=== PATIENT | male | born 1950 | race Caucasian/White ===

== ENCOUNTER 2016-09-27 06:45 | Inpatient (IN) | payer OTHER ==
[~2016-09-27] VITALS: Ht 167.6 cm; Wt 73.3 kg
[2016-09-27] VITALS (13 sets, daily range): BP systolic 106–168; BP diastolic 71–95; PULSE 84–105; RESP 12–24; Ht 167.6 cm; Wt 73.3 kg
--- NOTE | 2016-09-27 07:24 | RADRPT ---
PROCEDURE: XR Chest. CLINICAL INDICATION: Preoperative TECHNIQUE: Single frontal view of the chest was obtained. COMPARISON: None FINDINGS: The heart is within normal limits. The thoracic aorta is calcified. The lungs are clear. There is no pleural effusion or pneumothorax. RPTAT: AA IMPRESSION: No acute disease. Calcified aorta consistent with atherosclerotic disease. .Sagar Lyons MD, MD Date Time Electronically viewed and signed by .Sagar Lyons MD, on 09/27/2016 07:23 .S/
[2016-09-27 07:50] LABS: BASOPHILS % 0.3 % (0.0-2.0); EOSINOPHILS # 0.1 10^3/ul (0.0-0.5); EOSINOPHILS % 1.2 % (0.0-7.0); HEMATOCRIT 47.5 % (42.0-52.0); HEMOGLOBIN 16.1 g/dl (14.0-18.0); LYMPHOCYTES # 2.5 10^3/ul (0.8-2.9); LYMPHOCYTES % 27.6 % (15.0-51.0); MEAN CORPUSCULAR HEMOGLOBIN 31.4 pg (29.0-33.0); MEAN CORPUSCULAR HGB CONC 33.9 g/dl (32.0-37.0); MEAN CORPUSCULAR VOLUME 92.6 fl (82.0-101.0); MEAN PLATELET VOLUME 7.9 fl (7.4-10.4); MONOCYTE # 0.8 10^3/ul (0.3-0.9); NEUTROPHIL # 5.7 10^3/ul (1.6-7.5); NEUTROPHILS % 61.9 % (39.0-77.0); PLATELET COUNT 228 10^3/UL (140-440); RED BLOOD COUNT 5.13 10^6/ul (4.70-6.10); RED CELL DISTRIBUTION WIDTH 12.9 % (11.5-14.5); UNCORRECTED WBC 9.2 10^3/ul (4.8-10.8); WHITE BLOOD COUNT 9.2 10^3/ul (4.8-10.8)
[2016-09-27 08:03] LABS: CONDITION 1
[2016-09-27 08:14] LABS: INR 0.9; PROTIME 12.1 Sec (12.2-14.2); PT RATIO 0.9
[2016-09-27 08:15] LABS: PARTIAL THROMBOPLASTIN TIME 26.3 Sec (25.0-35.0)
[2016-09-27 08:16] LABS: CHOL/HDL RATIO 4.7 RATIO
[2016-09-27] MEDS ORDERED: ENAL20TA PO (08:19)
[2016-09-27] MEDS ORDERED: ASPI-664 PO (08:19)
[2016-09-27] MEDS ORDERED: METF-382 PO (08:19)
[2016-09-27 08:25] LABS: CALCIUM 9.4 mg/dl (8.4-10.2); CREATININE 0.89 mg/dl (0.61-1.24); POTASSIUM 4.7 mmol/L (3.5-5.1)
[2016-09-27] MEDS ORDERED: HEPARIN 1000 UNITS/ML 10 ML INJ ONE (08:31)
[2016-09-27] MEDS ORDERED: LIDOCAINE 1% (MDV) 20 ML INJ ONE (08:31)
[2016-09-27] MEDS ORDERED: IODIXANOL LOCM 100 ML BTL ONE (08:31)
[2016-09-27] MEDS ORDERED: VERAPAMIL 5 MG INJ ONE (08:32)
[2016-09-27] MEDS ORDERED: NITROGLYCERIN (IC) 100 MCG/ML INJ ONE (08:32)
[2016-09-27] MEDS ORDERED: MIDAZOLAM 1 MG/ML 2 ML INJ ONE (08:32)
[2016-09-27] MEDS ORDERED: FENTAnyl 50 MCG/ML VIAL ONE (08:32)
[2016-09-27] MEDS ORDERED: SOD CHLORIDE 0.9% 1,000 ML IV SCH (10:24)
[2016-09-27] MEDS ORDERED: ACETAMINOPHEN 325 MG TAB PO PRN ×2 (10:30→18:30)
[2016-09-27] MEDS ORDERED: AL HYDROX/MG HYDROX/SIMETH 30 ML CUP PO PRN (10:30)
[2016-09-27] MEDS ORDERED: ONDANSETRON 4 MG INJ IV PRN ×2 (10:30→18:30)
--- NOTE | 2016-09-27 14:59 | CARRPT ---
DATE OF PROCEDURE: 09/27/2016 TYPE OF PROCEDURE: 1. Left heart catheterization. 2. Coronary angiography. 3. Left ventriculogram. ATTENDING PHYSICIAN: Lori Nelson MD REFERRING PHYSICIAN: Dr. Sukumar Ness, Dr. Nilton Nina. INDICATION: Preoperative evaluation, abnormal cardiac stress test. TYPE OF ANESTHESIA: Conscious and local. BRIEF HISTORY: Mr. Conte is a 66-year-old male with history of hypertension, diabetes mellitus who initially presented with nonhealing toe wound. The patient was found to have significant periphera l arterial disease and underwent preoperative evaluation with cardiac stress test revealing positive ischemia. The patient therefore referred for left heart catheterization to assess for the possibil ity of significant obstructive coronary artery disease lending to positive stress test findings and decreased left ventricular ejection fraction in this preoperative patient. PROCEDURE: After informed consent was obtained, the patient was brought to the [facility] cardiac catheterization lab where his right radial area was prepped and draped in the usual sterile fashion. Lidocaine 2% was infiltrated into the right radial area in order to achieve adequ ate local anesthesia. Using modified Seldinger technique, the radial artery was cannulated and a 6- Singaporean arterial sheath was placed. A 6-Singaporean JL3.5 catheter was used to cannulate the left main co ronary ostium. With contrast injection, multiple views of the left coronary arterial system were ob tained. The JL3.5 was removed over a guidewire and a JR4 was used to cannulate the right coronary a rterial ostium. With contrast injection, multiple views of the right coronary arterial system obtai jude. JR4 was removed over a guidewire and a 6-Singaporean pigtail catheter was then passed down the asce nding aorta into the left ventricle. Left ventricular end-diastolic pressure was measured. The NoDaysOff er injector was used to inject the left ventricle, performing a left ventriculogram. The pigtail ca theter was then pulled back across the aortic valve to assess for significant gradient, which there was not, and removed. Subsequently, at this time, this completed the procedure. The patient's cath eters were removed. The patient's sheath was removed. TR band was applied. There were no noted co mplications. Additionally noted at the onset of procedure, the patient did receive radial cocktail that included 200 mcg of IC nitroglycerin, 2.5 mg of verapamil and 5000 units of heparin. FINDINGS: 1. Coronary angiography: Left main 4 mm, distal 20% stenosis. Circumflex proximally is a 3 mm ves connor. ____ the AV groove is free of significant focal stenoses, ____ all the way down to the termina l end of it where it looks to be subtotally occluded. There is a mid-branching obtuse marginal with a mid 80 to 90% stenosis and a very high branching obtuse marginal ramus branch which has diffuse d isease up to approximately 80%. The LAD proximally is a 3.5 mm vessel and in its proximal mid porti on just after takeoff of the first diagonal and first septal branch has a very focal 80% to 90% sten osis. There is a second branching diagonal 2 mm vessel with a 70% ostial stenosis. The right coron neil artery proximally is a 3.5 mm vessel and is very aneurysmal throughout with very sluggish flow a nd multiple areas of occlusion with the highest area of occlusion just before the PDA bifurcation up to approximately 95%. The right coronary artery can be seen also via collateral flow from the dist al circumflex and septal branch of the LAD, grade I-II. 2. Left ventriculogram revealed a depressed left ventricular ejection fraction approximately 30 to 35% inferior severe hypokinesis and anterolateral moderate hypokinesis. Left ventricular end diast olic pressure of 14 pre-LV gram, 19 post-LV gram, 1+ mitral regurgitation, no significant aortic suzan nosis by gradient. TOTAL FLUOROSCOPY TIME: 3.7 minutes. TOTAL CONTRAST: 75 mL. IMPRESSION: 1. Multivessel obstructive coronary artery disease involving high grade lesions within the LAD, obt use marginal branch of circumflex and diffuse right coronary artery disease. 2. Moderate to severely depressed left ventricular systolic function. 3. Normal left heart filling pressures. 4. There is 1+ mitral regurgitation. 5. No significant aortic stenosis by gradient. RECOMMENDATIONS: In light of procedure findings this time would: 1. Maximize medical management. 2. Aggressive risk factor reduction. 3. At this time, will consider patient for possible coronary artery bypass graft surgery versus mul tivessel PCI. 4. Patient is to be admitted to the hospital for further evaluation of peripheral arterial disease and toe wound and will discuss with the treating surgeon the best plans for revascularization if thi s patient was also in need of possible peripheral bypass surgery and amputation. Dictated By: LORI CONNELLY/NTS Conf#: [id number] DID#: [id number] CC: SUKUMAR NESS MD; NILTON NINA MD;*EndCC*
--- NOTE | 2016-09-27 17:32 | QN ---
Documentation Comment [id number] JERICHO NINA MD Sep 27, 2016 17:32
--- NOTE | 2016-09-27 17:32 | QN ---
JERICHO NINA MD Sep 27, 2016 17:32
[2016-09-27] MEDS ORDERED: ACETAMINOPHEN 650 MG SUPP PR PRN (18:30)
[2016-09-27] MEDS ORDERED: NACL 0.9% 3 ML SYG IV SCH (18:30)
[2016-09-27] MEDS ORDERED: DOCUSATE SODIUM 100 MG CAP PO PRN (18:30)
[2016-09-27] MEDS ORDERED: MAGNESIUM HYDROXIDE 30ML CUP PO PRN (18:30)
[2016-09-27] MEDS ORDERED: BISACODYL (EC) 5 MG TAB PO PRN (18:30)
[2016-09-27] MEDS ORDERED: GLUCAGON 1 MG INJ IM PRN (19:00)
[2016-09-27] MEDS ORDERED: DEXTROSE 50% 50 ML SYRINGE IV PRN ×2 (19:00)
[2016-09-27] MEDS ORDERED: GLUCOSE GEL 15 GRAM TUBE BUCCAL PRN (19:00)
[2016-09-27] MEDS ORDERED: GLUCOSE GEL 15 GRAM TUBE PO PRN ×2 (19:00)
--- NOTE | 2016-09-27 19:19 | RADRPT ---
Vent Rate: 95 bpm RR Interval: 0 msec WV Interval: 138 msec QRS Duration: 106 msec QT Interval: 372 msec QTC Interval: 467 msec P-R-T [place]: 61 - -74 - -58 degrees Normal sinus rhythm Possible Left atrial enlargement Left axis deviation Nonspecific ST and T wave abnormality Prolonged QT Abnormal ECG Electronically Signed By: Andrzej Paulino [id number]
[2016-09-27] MEDS: SOD CHLORIDE 0.45% 1,000 ML IV SCH (19:43)
--- NOTE | 2016-09-27 20:09 | HP ---
DATE OF ADMISSION: 09/27/2016 HISTORY OF PRESENT ILLNESS: A 66-year-old male who has a history of toe gangrene presented to this hospital for questionable anginal symptoms, underwent coronary angiogram and the patient will be und ergoing evaluation for lower extremity gangrene, PVD. PAST MEDICAL HISTORY: Positive for hypertension, diabetes mellitus and PVD. ALLERGIES: SULFA. SOCIAL HISTORY: Negative. FAMILY HISTORY: Negative. MEDICATION HISTORY: 1. Aspirin. 2. Enalapril. 3. Metformin. REVIEW OF SYSTEMS HEENT: Unremarkable. RESPIRATORY: No shortness of breath. CARDIOVASCULAR: No chest pain. ABDOMEN: Unremarkable. EXTREMITIES: As mentioned above, lower extremity pain and dry gangrene of the toe. CENTRAL NERVOUS SYSTEM: Unremarkable. PHYSICAL EXAMINATION GENERAL: The patient is awake, alert. VITAL SIGNS: Stable. HEAD: Atraumatic, normocephalic. Pupils are equal, reactive to light. NECK: Supple. No JVD. LUNGS: Clear. CARDIOVASCULAR: S1, S2 are normal. ABDOMEN: Soft, nontender. Bowel sounds present. No palpable mass or hepatosplenomegaly. No guard ing, rebound tenderness. EXTREMITIES. Dry gangrene of the right foot. Pulses are decreased on both lower extremities and do rsalis pedis. CENTRAL NERVOUS SYSTEM: The patient is awake, alert; no focal deficit. PLAN 1. To follow recommendation from cardiology. 2. Check lower extremity aortogram, IV fluid, pain medication, sliding scale orders will be done. Dictated By: JERICHO NINA MD BS/NTS Conf#: [id number] DID#: [id number]
[2016-09-27] MEDS ORDERED: INSULIN ASPART [NOVOLOG] 3 ML PEN SC SCH (21:00)
--- NOTE | 2016-09-27 21:15 | CONS ---
DATE OF ADMISSION: 09/27/2016 DATE OF CONSULTATION: REASON FOR CONSULTATION: Evaluation for coronary artery bypass grafting. Thank you, Dr. Nelson, for asking me to see this patient. HISTORY OF PRESENT ILLNESS: This is a 66-year-old male with a history of hypertension, diabetes, no nhealing toe wound. The patient was admitted to undergo cardiac catheterization, was found to have 3-vessel coronary artery disease. Specifically, the patient had LAD which was 80% to 90% stenosis a nd a diagonal branch of the LAD which had a 70% stenosis. The patient also had an obtuse marginal b ranch of the circumflex which had 80% to 90% stenosis, ramus branch which had 80% stenosis. Right c oronary artery was 100% occluded and filled from left to right. Ejection fraction 30% to 35%. PAST MEDICAL HISTORY: Hypertension, diabetes, hyperlipidemia, coronary artery disease, peripheral v ascular disease. PAST SURGICAL HISTORY: Lower extremity angiograms. ALLERGIES: NONE. SOCIAL HISTORY: No smoking, drinking or drug use. FAMILY HISTORY: Noncontributory. PHYSICAL EXAMINATION: VITAL SIGNS: Blood pressure is 157/89, pulse is 89, respirations 19, saturation 99% on room air. HEENT: Normocephalic, atraumatic. PERRLA. NECK: Supple. No JVD, no carotid bruits. CARDIOVASCULAR: Normal S1, S2. LUNGS: Clear. ABDOMEN: Soft. EXTREMITIES: Warm. The patient has strong pedal pulses on the right side. On the left side, he mercer s a 1st toe ulcer. There are femoral and popliteal but no pedal pulse. LABORATORY VALUES: Significant for a white count of 9.2, hemoglobin 16.1, platelet count 228, blaze l coagulation factors and a creatinine of 0.89. IMPRESSION: 1. Coronary artery disease. 2. Peripheral vascular disease. 3. Left toe ulcer. RECOMMENDATIONS: The patient will need to undergo coronary artery bypass grafting. This was discus sed with the patient. He wants me to discuss this again with his daughter tomorrow. Will discuss c are of the patient with the daughter tomorrow. Dictated By: CONSTANZA HOWELL/RAJANI Conf#: [id number] DID#: [id number]
[2016-09-27] MEDS: INSULIN ASPART [NOVOLOG] 3 ML PEN SC SCH (22:23)
[2016-09-28] VITALS (12 sets, daily range): BP systolic 147–174; BP diastolic 82–96; PULSE 86–100; RESP 18–20
[2016-09-28] MEDS: ACCUCHECK XX SCH (02:00)
[2016-09-28] MEDS ORDERED: ACCUCHECK XX SCH (02:00)
[2016-09-28 06:21] LABS: BASOPHILS % 0.5 % (0.0-2.0); EOSINOPHILS # 0.1 10^3/ul (0.0-0.5); EOSINOPHILS % 1.2 % (0.0-7.0); HEMATOCRIT 42.2 % (42.0-52.0); HEMOGLOBIN 14.4 g/dl (14.0-18.0); LYMPHOCYTES # 2.7 10^3/ul (0.8-2.9); LYMPHOCYTES % 36.1 % (15.0-51.0); MEAN CORPUSCULAR HEMOGLOBIN 31.7 pg (29.0-33.0); MEAN CORPUSCULAR HGB CONC 34.2 g/dl (32.0-37.0); MEAN CORPUSCULAR VOLUME 92.5 fl (82.0-101.0); MEAN PLATELET VOLUME 7.8 fl (7.4-10.4); MONOCYTE # 0.9 10^3/ul (0.3-0.9); MONOCYTES % 12.1 % (0.0-11.0); NEUTROPHIL # 3.8 10^3/ul (1.6-7.5); NEUTROPHILS % 50.1 % (39.0-77.0); PLATELET COUNT 222 10^3/UL (140-440); RED BLOOD COUNT 4.57 10^6/ul (4.70-6.10); RED CELL DISTRIBUTION WIDTH 12.7 % (11.5-14.5); UNCORRECTED WBC 7.5 10^3/ul (4.8-10.8); WHITE BLOOD COUNT 7.5 10^3/ul (4.8-10.8)
[2016-09-28 06:37] LABS: ALBUMIN 3.7 g/dl (3.3-4.9)
[2016-09-28 06:38] LABS: POTASSIUM 4.4 mmol/L (3.5-5.1)
[2016-09-28 06:40] LABS: ALBUMIN/GLOBULIN RATIO 1.27; BILIRUBIN,INDIRECT 0.3 mg/dl (0-1.1); BILIRUBIN,TOTAL 0.3 mg/dl (0.2-1.3); CREATININE 0.95 mg/dl (0.61-1.24); TOTAL PROTEIN 6.6 g/dl (6.1-8.1)
[2016-09-28 06:41] LABS: CALCIUM 8.6 mg/dl (8.4-10.2)
[2016-09-28 06:50] LABS: CONDITION 1
[2016-09-28] MEDS: SOD CHLORIDE 0.45% 1,000 ML IV SCH (09:06)
[2016-09-28] MEDS: ENALAPRIL 20 MG TAB PO SCH (09:06)
[2016-09-28] MEDS: INSULIN ASPART [NOVOLOG] 3 ML PEN SC SCH ×4 (09:08→21:10)
[2016-09-28] MEDS ORDERED: SOD CHLORIDE 0.9% 100 ML ONE (11:36)
[2016-09-28] MEDS ORDERED: IODIXANOL LOCM 50 ML BTL ONE (11:36)
[2016-09-28] MEDS ORDERED: IODIXANOL LOCM 100 ML BTL ONE (11:36)
[2016-09-28] MEDS: ASPIRIN (EC) 81 MG TAB PO SCH (12:28)
[2016-09-28] MEDS: ENOXAPARIN 40 MG/0.4 ML SYG SC SCH (12:30)
--- NOTE | 2016-09-28 16:11 | CONS ---
Date/Time of Note Date/Time of Note DATE: 09/28/16 TIME: 16:01 Assessment/Plan Assessment/Plan Chief Complaint/Hosp Course Imp: 1.Cad s/p cath with multivessel obstructive cad b y cath since 2.PAD with nonhealing toe ulcer 3.HTN 4.DM 5. Dyslipidemia Recc: -Tele -continue asa -Continue enalapril -Start statin and BB -Pnding cabg early next week -Local wound care Problems: Consultation Date/Type/Reason Admit Date/Time Sep 27, 2016 at 10:27 Initial Consult Date 09/27/2016 Type of Consultation: Cardiology Reason for Consultation CAD/pre-op Referring Provider: JERICHO NINA MD Exam/Review of Systems Vital Signs Vitals Vital Signs Date Time Temp Pulse Resp B/P Pulse Ox O2 Delivery O2 Flow Rate FiO2 09/28/16 12:43 95 09/28/16 07:00 98.0 18 156/82 96 09/27/16 17:35 Room Air Intake and Output 09/27/16 09/27/16 09/28/16 15:00 23:00 07:00 Intake Total 350 ml 150 ml 1000 ml Balance 350 ml 150 ml 1000 ml Exam Review of Systems: CONSTITUTIONAL: No fevers, chills. PULMONARY: No sob CARDIOVASCULAR: No chest pain/palpitations GASTROINTESTINAL: No nausea/vomiting. GENITOURINARY: No hematuria/dysuria. MUSCULOSKELETAL: No myagias/arthalgias. PSYCHIATRIC: The patient denies depression. NEUROLOGIC: No weakness Constitutional: alert, oriented Psych: no complaints Head: normocephalic ENMT: mucosa pink and moist Neck: jvd (9 cm water), supple Respiratory: diminished breath sounds (at bases/B) Cardiovascular: regular rate and rhythm Gastrointestinal: non-tender, soft Musculoskeletal: muscle tone (normal) Extremities: edema (none), other (Toe ulceration) Neurological: other (No focal deficits) Results Result Diagram: 09/28/16 0540 09/28/16 0540 Results 24 hrs Laboratory Tests Test 09/27/16 17:47 09/27/16 21:33 09/28/16 02:10 09/28/16 05:40 Bedside Glucose 246 H 326 H 243 H Alanine Aminotransferase (ALT/SGPT) 24 Albumin 3.7 Albumin/Globulin Ratio 1.27 Alkaline Phosphatase 84 Anion Gap 15 Aspartate Amino Transf (AST/SGOT) 18 Basophils # 0.0 Basophils % 0.5 Blood Urea Nitrogen 20 Calcium Level 8.6 Carbon Dioxide Level 25 Chloride Level 102 Creatinine 0.95 Direct Bilirubin 0.00 Eosinophils # 0.1 Eosinophils % 1.2 Globulin 2.90 Glucose Level 223 H Hematocrit 42.2 Hemoglobin 14.4 Indirect Bilirubin 0.3 Lymphocytes # 2.7 Lymphocytes % 36.1 Mean Corpuscular Hemoglobin 31.7 Mean Corpuscular Hemoglobin Concent 34.2 Mean Corpuscular Volume 92.5 Mean Platelet Volume 7.8 Monocytes # 0.9 Monocytes % 12.1 H Neutrophils # 3.8 Neutrophils % 50.1 Nucleated Red Blood Cells # 0.0 Nucleated Red Blood Cells % 0.0 Platelet Count 222 Potassium Level 4.4 Red Blood Count 4.57 L Red Cell Distribution Width 12.7 Sodium Level 138 Total Bilirubin 0.3 Total Protein 6.6 White Blood Count 7.5 Test 09/28/16 08:10 09/28/16 12:05 Bedside Glucose 248 H 155 Medications Medications Current Medications Miscellaneous Information (* Miscellaneous Pharmacy Order) HOLD all METFORMIN ... ONCE XX ; Start 09/27/16 at 10:30; Stop 09/29/16 at 10:29 Morphine Sulfate (morphine) 2 mg Q2H PRN IV FOR NON CARDIAC PAIN (4-10); Start 09/27/16 at 10:30 Al Hydrox/Mg Hydrox/Simethicone (Mag-Al Plus) 30 ml Q4H PRN PO GASTROINTESTINAL UPSET; Start 09/27/16 at 10:30 Aspirin (Halfprin) 81 mg DAILY PO Last administered on 09/28/16 12:28; Admin Dose 81 MG; Start 09/28/16 at 09:00 Enalapril Maleate 20 mg 20 mg DAILY PO Last administered on 09/28/16 09:06; Admin Dose 20 MG; Start 09/28/16 at 09:00 Sodium Chloride (1/2 NS) 1,000 ml @ 50 mls/hr Q20H IV Last administered on 09/28 09:06; Admin Dose 50 MLS/HR; Start 09/27/16 at 18:05 Ondansetron HCl (Zofran Inj) 4 mg Q6H PRN IV NAUSEA AND/OR VOMITING; Start 09/27 at 18:30 Acetaminophen (Tylenol Tab) 650 mg Q6H PRN PO PAIN LEVEL 1-3 OR FEVER; Start at 18:30 Acetaminophen (Tylenol Supp) 650 mg Q6H PRN SC PAIN LEVEL 1-3 OR FEVER; Start 09/27/16 at 18:30 Acetaminophen/ Hydrocodone Bitart ([place] (5/325)) 1 tab Q6H PRN PO MODERATE PAIN LEVEL 4-6; Start 09/27/16 at 18:30 Hydromorphone HCl (Dilaudid) 0.5 mg Q4H PRN IV SEVERE PAIN LEVEL 7-10; Start at 18:30 Docusate Sodium (Colace) 100 mg Q12H PRN PO CONSTIPATION; Start 09/27/16 at 18: 30 Magnesium Hydroxide (Milk Of Mag) 30 ml DAILY PRN PO CONSTIPATION; Start at 18:30 Bisacodyl (Dulcolax) 5 mg DAILY PRN PO CONSTIPATION; Start 09/27/16 at 18:30 Enoxaparin Sodium (Lovenox) 40 mg DAILY SC Last administered on 09/28/16t 12:30 ; Admin Dose 40 MG; Start 09/28/16 at 09:00 Miscellaneous Information 1 ea NOTE XX ; Start 09/27/16 at 19:00 Glucose (Glutose) 15 gm Q15M PRN PO DECREASED GLUCOSE; Start 09/27/16 at 19:00 Glucose (Glutose) 22.5 gm Q15M PRN PO DECREASED GLUCOSE; Start 09/27/16 at 19:00 Dextrose (D50w Syringe) 25 ml Q15M PRN IV DECREASED GLUCOSE; Start 09/27/16 at 19:00 Dextrose (D50w Syringe) 50 ml Q15M PRN IV DECREASED GLUCOSE; Start 09/27/16 at 19:00 Glucagon (Glucagen) 1 mg Q15M PRN IM DECREASED GLUCOSE; Start 09/27/16 at 19:00 Glucose (Glutose) 15 gm Q15M PRN BUCCAL DECREASED GLUCOSE; Start 09/27/16 at 19: 00 Diagnostic Test (Pha) (Accucheck) 1 ea 02 XX ; Start 09/28/16 at 02:00 LORI CASTREJON Sep 28, 2016 16:11
--- NOTE | 2016-09-28 17:20 | PN ---
Date/Time of Note Date/Time of Note DATE: 09/28/16 TIME: 17:16 Assessment/Plan VTE Prophylaxis VTE Prophylaxis Intervention: other Lines/Catheters IV Catheter Type (from Nrs): Saline Lock Assessment/Plan Chief Complaint/Hosp Course A/P DM HTN S/P CATH POSITIVE FOR CAD PVD PLAN WILL NEED CABG Problems: Subjective 24 Hr Interval Summary Respiratory: no complaints Cardiovascular: no complaints Gastrointestinal: no complaints Musculoskeletal: no complaints Exam/Review of Systems Vital Signs Vitals Vital Signs Date Time Temp Pulse Resp B/P Pulse Ox O2 Delivery O2 Flow Rate FiO2 09/28/16 16:12 91 09/28/16 16:00 98.2 20 167/96 98 Room Air Intake and Output 09/27/16 09/27/16 09/28/16 15:00 23:00 07:00 Intake Total 350 ml 150 ml 1000 ml Balance 350 ml 150 ml 1000 ml Exam Neck: supple Respiratory: clear to auscultation Cardiovascular: regular rate and rhythm Gastrointestinal: soft Musculoskeletal: nl extremities to inspection Results Result Diagram: 09/28/16 0540 09/28/16 0540 Results 24 hrs Laboratory Tests Test 09/27/16 17:47 09/27/16 21:33 09/28/16 02:10 09/28/16 05:40 Bedside Glucose 246 H 326 H 243 H Alanine Aminotransferase (ALT/SGPT) 24 Albumin 3.7 Albumin/Globulin Ratio 1.27 Alkaline Phosphatase 84 Anion Gap 15 Aspartate Amino Transf (AST/SGOT) 18 Basophils # 0.0 Basophils % 0.5 Blood Urea Nitrogen 20 Calcium Level 8.6 Carbon Dioxide Level 25 Chloride Level 102 Creatinine 0.95 Direct Bilirubin 0.00 Eosinophils # 0.1 Eosinophils % 1.2 Globulin 2.90 Glucose Level 223 H Hematocrit 42.2 Hemoglobin 14.4 Indirect Bilirubin 0.3 Lymphocytes # 2.7 Lymphocytes % 36.1 Mean Corpuscular Hemoglobin 31.7 Mean Corpuscular Hemoglobin Concent 34.2 Mean Corpuscular Volume 92.5 Mean Platelet Volume 7.8 Monocytes # 0.9 Monocytes % 12.1 H Neutrophils # 3.8 Neutrophils % 50.1 Nucleated Red Blood Cells # 0.0 Nucleated Red Blood Cells % 0.0 Platelet Count 222 Potassium Level 4.4 Red Blood Count 4.57 L Red Cell Distribution Width 12.7 Sodium Level 138 Total Bilirubin 0.3 Total Protein 6.6 White Blood Count 7.5 Test 2/3/17 08:10 09/28/16 12:05 09/28/16 16:35 Bedside Glucose 248 H 155 183 Medications Medications Current Medications Miscellaneous Information (* Miscellaneous Pharmacy Order) HOLD all METFORMIN ... ONCE XX ; Start 09/27/16 at 10:30; Stop 09/29/16 at 10:29 Morphine Sulfate (morphine) 2 mg Q2H PRN IV FOR NON CARDIAC PAIN (4-10); Start 09/27/16 at 10:30 Al Hydrox/Mg Hydrox/Simethicone (Mag-Al Plus) 30 ml Q4H PRN PO GASTROINTESTINAL UPSET; Start 09/27/16 at 10:30 Aspirin (Halfprin) 81 mg DAILY PO Last administered on 09/28/16 12:28; Admin Dose 81 MG; Start 09/28/16 at 09:00 Enalapril Maleate 20 mg 20 mg DAILY PO Last administered on 09/28/16 09:06; Admin Dose 20 MG; Start 09/28/16 at 09:00 Sodium Chloride (1/2 NS) 1,000 ml @ 50 mls/hr Q20H IV Last administered on 09/28 09:06; Admin Dose 50 MLS/HR; Start 09/27/16 at 18:05 Ondansetron HCl (Zofran Inj) 4 mg Q6H PRN IV NAUSEA AND/OR VOMITING; Start 09/27 at 18:30 Acetaminophen (Tylenol Tab) 650 mg Q6H PRN PO PAIN LEVEL 1-3 OR FEVER; Start at 18:30 Acetaminophen (Tylenol Supp) 650 mg Q6H PRN [place] PAIN LEVEL 1-3 OR FEVER; Start 09/27/16 at 18:30 Acetaminophen/ Hydrocodone Bitart ([place] (5/325)) 1 tab Q6H PRN PO MODERATE PAIN LEVEL 4-6; Start 09/27/16 at 18:30 Hydromorphone HCl (Dilaudid) 0.5 mg Q4H PRN IV SEVERE PAIN LEVEL 7-10; Start at 18:30 Docusate Sodium (Colace) 100 mg Q12H PRN PO CONSTIPATION; Start 09/27/16 at 18: 30 Magnesium Hydroxide (Milk Of Mag) 30 ml DAILY PRN PO CONSTIPATION; Start at 18:30 Bisacodyl (Dulcolax) 5 mg DAILY PRN PO CONSTIPATION; Start 09/27/16 at 18:30 Enoxaparin Sodium (Lovenox) 40 mg DAILY SC Last administered on 09/28/16t 12:30 ; Admin Dose 40 MG; Start 09/28/16 at 09:00 Miscellaneous Information 1 ea NOTE XX ; Start 09/27/16 at 19:00 Glucose (Glutose) 15 gm Q15M PRN PO DECREASED GLUCOSE; Start 09/27/16 at 19:00 Glucose (Glutose) 22.5 gm Q15M PRN PO DECREASED GLUCOSE; Start 09/27/16 at 19:00 Dextrose (D50w Syringe) 25 ml Q15M PRN IV DECREASED GLUCOSE; Start 09/27/16 at 19:00 Dextrose (D50w Syringe) 50 ml Q15M PRN IV DECREASED GLUCOSE; Start 09/27/16 at 19:00 Glucagon (Glucagen) 1 mg Q15M PRN IM DECREASED GLUCOSE; Start 09/27/16 at 19:00 Glucose (Glutose) 15 gm Q15M PRN BUCCAL DECREASED GLUCOSE; Start 09/27/16 at 19: 00 Diagnostic Test (Pha) (Accucheck) 1 ea 02 XX ; Start 09/28/16 at 02:00 Hydralazine HCl (Apresoline) 25 mg TID PO ; Start 09/28/16 at 21:00 JERICHO NINA MD Sep 28, 2016 17:19
--- NOTE | 2016-09-28 19:21 | PN ---
Date/Time of Note Date/Time of Note DATE: 09/28/16 TIME: 19:19 Assessment/Plan Lines/Catheters IV [facility]ter [facility] (from [facility]): Saline Lock Assessment/Plan Chief Complaint/Hosp Course IMPRESSION: 1. Coronary artery disease. 2. Peripheral vascular disease. 3. Left toe ulcer. RECOMMENDATIONS: The patient will need to undergo coronary artery bypass grafting. This was discussed with the patient. He wants me to discuss this again with his daughter tomorrow. Will discuss care of the patient with the daughter Plan for CABG on Saturday Problems: Subjective 24 Hr Interval Summary Constitutional: improved Pain Control: mild Exam/Review of Systems Vital Signs Vitals Vital Signs Date Time Temp Pulse Resp B/P Pulse Ox O2 Delivery O2 Flow Rate FiO2 09/28/16 16:12 91 09/28/16 16:00 98.2 20 167/96 98 Room Air Intake and Output 09/27/16 09/27/16 09/28/16 15:00 23:00 07:00 Intake Total 350 ml 150 ml 1000 ml Balance 350 ml 150 ml 1000 ml Exam Neck: non-tender, supple Respiratory: clear to auscultation, normal air movement Cardiovascular: nl pulses, regular rate and rhythm Gastrointestinal: nl liver, spleen, non-tender, soft Results Result Diagram: 09/28/16 0540 09/28/16 0540 CONSTANZA AWAD MD Sep 28, 2016 19:21
--- NOTE | 2016-09-28 20:41 | RADRPT ---
PROCEDURE: Carotid ultrasound CLINICAL INDICATION: Carotid stenosis, coronary artery disease, carotid bruits TECHNIQUE: Gentile scale, color doppler, spectral doppler ultrasound of the bilateral carotid and ivette tebral arteries. This study indirectly references the measurement of the distal ICA diameter as the denominator for s tenosis measurement. Validated velocity measurements with angiographic measurements, velocity criter ia are extrapolated from diameter data as defined by: *Cartoid artery stenosis: gentile-scale and Doppl er US diagnosis. Society of Radiologists in Ultrasound Consensus Conference. Radiology 2003; 229: 34 0-346. U Consensus Conference Criteria for the Diagnosis of Carotid Artery Stenosis* Degree of Stenosis, % ICA PSV, cm/sec Plaque Estimate, % ICA/CCA PSV Ratio Normal <125 None <2.0 <50 <125 <50 <2.0 50 69 125-230 >50 2.0-4.0 >70 but less than near occlusion >230 >50 <4.0 Near occlusion High, low, or undetectable Visible Variable Total occlusion Undetectable Visible, no detectable lumen Not applicable COMPARISON: No prior studies are available for comparison. FINDINGS: Location Right CCA62 cm/sec Prox ICA 31 cm/sec Mid ICA38 cm/sec Dist ICA45 cm/sec ECA79 cm/sec ICA/CCA0.7 Left CCA69 cm/sec Prox ICA 35 cm/sec Mid ICA48 cm/sec Dist ICA55 cm/sec ECA95 cm/sec ICA/CCA0.7 Plaque burden: A small amount of plaque is present within the visualized portions of both internal c arotid arteries however there is no evidence of flow acceleration to suggest a hemodynamically signi ficant stenosis. Antegrade flow is seen within the vertebral arteries bilaterally. IMPRESSION: A small amount of plaque is present within the visualized portions of both internal carotid arteries however there is no evidence of flow acceleration to suggest a hemodynamically significant stenosis . RPTAT: AADD .Adi Monson MD, MD Date Time Electronically viewed and signed by .Adi Monson MD, on 09/28/2016 20:40 .B/
[2016-09-29] VITALS (12 sets, daily range): BP systolic 124–159; BP diastolic 72–93; PULSE 72–99; RESP 19–20
[2016-09-29] MEDS: ACCUCHECK XX SCH (02:24)
[2016-09-29] MEDS: SOD CHLORIDE 0.45% 1,000 ML IV SCH (06:47)
--- NOTE | 2016-09-29 06:50 | RADRPT ---
PROCEDURE: CT angiogram of the abdomen and pelvis with bilateral lower extremity runoff and with 3 -D reconstructions CLINICAL INDICATION: Peripheral vascular disease TECHNIQUE: CT angiogram of the abdomen and pelvis was performed on a multislice CT scanner . The patient was scanned after administration of intravenous contrast. Sagittal and coronal reformatted images were obtained from the axial source images. 3D MIP reformatted images were also created from the axial source images. DLP 1088.53 mGycm CTDI vol 147.88, 7.72 mGy COMPARISON: None FINDINGS: ANGIOGRAM FINDINGS: There is no acute dissection or aneurysm of the abdominal aorta. The celiac, SMA, and HIEN are widely patent. There are mural thrombi in the abdominal aorta which begin at the level of the SMA posteriorly and p roduce mild circumferential narrowing of the primarily infrarenal aorta. There is a penetrating athe rosclerotic ulcer of the infrarenal aorta measuring approximately 2.2 x 0.9 cm in axial dimensions a nd 2.8 cm in height on series 3, image 63 and coronal image 59. There are single renal arteries bilaterally. The left renal artery is widely patent. There is mild atherosclerotic narrowing of the right renal artery origin due to mural thrombi which extend into t he proximal right renal artery. Mural thrombi are noted to extend into the right greater than left common iliac arteries producing m ild intraluminal narrowing. There is a focus of penetrating atherosclerotic ulcer in the proximal r ight common iliac artery measuring approximately 7 x 3 mm in axial dimensions and 6 mm in height wit h medially displaced intimal calcifications noted on series 3, image 105 and coronal image 54. Somew hat more inferiorly in the proximal right common iliac artery, there is a second penetrating atheros clerotic ulcer measuring approximately 1.0 x 0 is 0.6 cm in axial dimensions and 1.1 cm in length on series 3, image 116 and coronal image 58. There is mild focal ectasia of the proximal right internal iliac artery measuring approximately 1 cm , compared with a diameter of 6 mm more inferiorly. The right external iliac artery is widely patent. There is short segment proximal occlusion of the left internal iliac artery with reconstitution from collaterals. The left external iliac artery is widely patent. RIGHT LOWER EXTREMITY: The SURGICAL TRAINING SPECIALIST, SFA, and profunda arteries are widely patent. The popliteal artery is widely patent. Infrapopliteal vessels are widely patent and there appears to be good three-vessel runoff to the lev el of the right ankle although evaluation is somewhat limited level of the mid calf due to attenuati on of the contrast bolus. LEFT LOWER EXTREMITY: The SURGICAL TRAINING SPECIALIST, SFA, and profunda arteries are widely patent. There is a focus of severe short segment narrowing of the above-knee popliteal artery on series 3, i mage 360. There is a focus of moderate short segment atherosclerotic narrowing of the left popliteal artery at the level of the knee on series 3, image 380. There is a focus of short segment occlusion and reconstitution of the left anterior tibial artery in the proximal to mid calf on series 3, image 458. The remainder of the left anterior tibial artery is patent to the ankle. There is a focus of severe short segment narrowing of the tibioperoneal trunk distally at its bifurc ation into the peroneal and posterior tibial arteries on series 3, image 430. The peroneal and poste rior tibial arteries are otherwise patent to the level of the left ankle. ANCILLARY FINDINGS: There is a 6 mm focus of arterial enhancement in the liver adjacent to the fundus of the gallbladder on series 3, image 42 which may be a hemangioma. There is renal cortical scarring on the right. There is a sub-centimeter hypodensity in the left ki dney which is too small to characterize, likely represents a cyst. The appendix is within normal limits. The prostate is enlarged and heterogeneous, measuring up to 5.6 cm in maximum dimension. 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 Mild narrowing at the origin of the right renal artery. 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 Mild ectasia of the proximal right internal iliac artery as well as short segment occlusion and graciela nstitution of the left internal iliac artery. There is likely good three-vessel runoff to the level of the right ankle although evaluation is some what limited below the midcalf due to attenuation of the contrast bolus. There is a focus of severe short segment narrowing of the above-knee popliteal artery as well as a f ocus of moderate short segment narrowing of the popliteal artery at the level of the knee. There is a focus of short segment occlusion and reconstitution of the proximal mid left anterior tib ial artery. There is a focus of severe short segment narrowing of the tibioperoneal trunk distally at its bifurc ation, as above. 6 mm focus of arterial enhancement of the liver adjacent to the gallbladder fundus is likely a heman gioma. A non emergent ultrasound can be obtained for further evaluation. The prostate is enlarged and heterogeneous, measuring up to 5.6 cm. Correlation with PSA level and digital rectal exam is recommended. RPTAT: EE Delroy Silverio Physician Date Time Electronically viewed and signed by Delroy Silverio Physician on 09/28/2016 13:31 /
[2016-09-29] MEDS: ENOXAPARIN 40 MG/0.4 ML SYG SC SCH (08:36)
[2016-09-29] MEDS: ENALAPRIL 20 MG TAB PO SCH (08:37)
[2016-09-29] MEDS: ASPIRIN (EC) 81 MG TAB PO SCH (08:37)
[2016-09-29] MEDS: INSULIN ASPART [NOVOLOG] 3 ML PEN SC SCH ×4 (08:37→21:06)
[2016-09-29 09:14] LABS: POTASSIUM 4.1 mmol/L (3.5-5.1)
[2016-09-29 09:16] LABS: CREATININE 0.8 mg/dl (0.61-1.24)
[2016-09-29 09:17] LABS: CALCIUM 9.1 mg/dl (8.4-10.2)
[2016-09-29 10:59] LABS: HEMATOCRIT 43.7 % (42.0-52.0); HEMOGLOBIN 15.6 g/dl (14.0-18.0); MEAN CORPUSCULAR HEMOGLOBIN 31.5 pg (29.0-33.0); MEAN CORPUSCULAR HGB CONC 35.7 g/dl (32.0-37.0); MEAN CORPUSCULAR VOLUME 88.1 fl (82.0-101.0); NEUTROPHILS % 54.7 % (39.0-77.0); PLATELET COUNT 229 10^3/UL (140-440); RED BLOOD COUNT 4.96 10^6/ul (4.70-6.10); WHITE BLOOD COUNT 6.5 10^3/ul (4.8-10.8)
[2016-09-29 11:00] LABS: BASOPHIL # 0.1 10^3/ul (0.0-0.1); BASOPHILS % 0.8 % (0.0-2.0); EOSINOPHILS # 0.1 10^3/ul (0.0-0.5); EOSINOPHILS % 1.4 % (0.0-7.0); LYMPHOCYTES # 2.1 10^3/ul (0.8-2.9); LYMPHOCYTES % 32.1 % (15.0-51.0); MONOCYTE # 0.7 10^3/ul (0.3-0.9); MONOCYTES % 10.7 % (0.0-11.0); NEUTROPHIL # 3.6 10^3/ul (1.6-7.5)
--- NOTE | 2016-09-29 11:47 | PN ---
Date/Time of Note Date/Time of Note DATE: 09/29/16 TIME: 11:46 Assessment/Plan Lines/Catheters IV Catheter Type (from Nrs): Saline Lock Assessment/Plan Chief Complaint/Hosp Course IMPRESSION: 1. Coronary artery disease. 2. Peripheral vascular disease. 3. Left toe ulcer. RECOMMENDATIONS: The patient will need to undergo coronary artery bypass grafting. This was discussed with the patient. He wants me to discuss this again with his daughter tomorrow. 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 Plan for CABG on Saturday Problems: Subjective 24 Hr Interval Summary Constitutional: improved Pain Control: mild Exam/Review of Systems Vital Signs Vitals Vital Signs Date Time Temp Pulse Resp B/P Pulse Ox O2 Delivery O2 Flow Rate FiO2 09/29/16 08:08 87 09/29/16 07:45 98.0 19 154/93 95 09/29/16 05:00 Room Air Intake and Output 09/28/16 09/28/16 09/29/16 15:00 23:00 07:00 Intake Total 1250 ml 740 ml Output Total 900 ml 700 ml Balance 350 ml 40 ml Exam ENMT: mucosa pink and moist, nl external ears & nose, nl lips & teeth, nl nasal mucosa & septum Neck: non-tender, supple Respiratory: clear to auscultation, normal air movement Cardiovascular: nl pulses, regular rate and rhythm Gastrointestinal: nl liver, spleen, non-tender, soft Results Result Diagram: 09/29/16 0732 09/29/16 0732 CONSTANZA AWAD MD Sep 29, 2016 11:47
--- NOTE | 2016-09-29 12:00 | PN ---
Date/Time of Note Date/Time of Note DATE: 09/29/16 TIME: 11:59 Assessment/Plan VTE Prophylaxis VTE Prophylaxis Intervention: other Lines/Catheters IV Catheter Type (from Nrsg): Saline Lock Assessment/Plan Chief Complaint/Hosp Course A/P DM HTN S/P CATH POSITIVE FOR CAD PVD PLAN WILL NEED CABG Problems: Subjective 24 Hr Interval Summary Respiratory: no complaints Cardiovascular: no complaints Exam/Review of Systems Vital Signs Vitals Vital Signs Date Time Temp Pulse Resp B/P Pulse Ox O2 Delivery O2 Flow Rate FiO2 09/29/16 08:08 87 09/29/16 07:45 98.0 19 154/93 95 09/29/16 05:00 Room Air Intake and Output 09/28/16 09/28/16 09/29/16 15:00 23:00 07:00 Intake Total 1250 ml 740 ml Output Total 900 ml 700 ml Balance 350 ml 40 ml Exam Respiratory: clear to auscultation Cardiovascular: regular rate and rhythm Gastrointestinal: soft Musculoskeletal: nl extremities to inspection Results Result Diagram: 09/29/16 0732 09/29/16 0732 Results 24 hrs Laboratory Tests Test 09/28/16 12:05 09/28/16 16:35 09/28/16 20:37 09/29/16 02:20 Bedside Glucose 155 183 255 H 188 Test 09/29/16 07:32 09/29/16 07:44 09/29/16 11:25 Anion Gap 18 H Basophils # 0.1 Basophils % 0.8 Blood Urea Nitrogen 19 Calcium Level 9.1 Carbon Dioxide Level 24 Chloride Level 104 Creatinine 0.80 Eosinophils # 0.1 Eosinophils % 1.4 Glucose Level 209 Hematocrit 43.7 Hemoglobin 15.6 Lymphocytes # 2.1 Lymphocytes % 32.1 Mean Corpuscular Hemoglobin 31.5 Mean Corpuscular Hemoglobin Concent 35.7 Mean Corpuscular Volume 88.1 Mean Platelet Volume 10.0 # Monocytes # 0.7 Monocytes % 10.7 Neutrophils # 3.6 Neutrophils % 54.7 Nucleated Red Blood Cells # 0.0 Nucleated Red Blood Cells % 0.0 Platelet Count 229 Potassium Level 4.1 Red Blood Count 4.96 Red Cell Distribution Width 12.0 Sodium Level 142 White Blood Count 6.5 Bedside Glucose 215 261 H Medications Medications Current Medications Morphine Sulfate (morphine) 2 mg Q2H PRN IV FOR NON CARDIAC PAIN (4-10); Start 09/27/16 at 10:30 Al Hydrox/Mg Hydrox/Simethicone (Mag-Al Plus) 30 ml Q4H PRN PO GASTROINTESTINAL UPSET; Start 09/27/16 at 10:30 Aspirin (Halfprin) 81 mg DAILY PO Last administered on 09/29/16 08:37; Admin Dose 81 MG; Start 09/28/16 at 09:00 Enalapril Maleate 20 mg 20 mg DAILY PO Last administered on 09/29/16 08:37; Admin Dose 20 MG; Start 09/28/16 at 09:00 Sodium Chloride (1/2 NS) 1,000 ml @ 50 mls/hr Q20H IV Last administered on 09/29 06:47; Admin Dose 50 MLS/HR; Start 09/27/16 at 18:05 Ondansetron HCl (Zofran Inj) 4 mg Q6H PRN IV NAUSEA AND/OR VOMITING; Start 09/27 at 18:30 Acetaminophen (Tylenol Tab) 650 mg Q6H PRN PO PAIN LEVEL 1-3 OR FEVER; Start at 18:30 Acetaminophen (Tylenol Supp) 650 mg Q6H PRN [place] PAIN LEVEL 1-3 OR FEVER; Start 09/27/16 at 18:30 Acetaminophen/ Hydrocodone Bitart ([place] (5/325)) 1 tab Q6H PRN PO MODERATE PAIN LEVEL 4-6; Start 09/27/16 at 18:30 Hydromorphone HCl (Dilaudid) 0.5 mg Q4H PRN IV SEVERE PAIN LEVEL 7-10; Start at 18:30 Docusate Sodium (Colace) 100 mg Q12H PRN PO CONSTIPATION; Start 09/27/16 at 18: 30 Magnesium Hydroxide (Milk Of Mag) 30 ml DAILY PRN PO CONSTIPATION; Start at 18:30 Bisacodyl (Dulcolax) 5 mg DAILY PRN PO CONSTIPATION; Start 09/27/16 at 18:30 Enoxaparin Sodium (Lovenox) 40 mg DAILY SC Last administered on 09/29/16 08:36 ; Admin Dose 40 MG; Start 09/28/16 at 09:00 Miscellaneous Information 1 ea NOTE XX ; Start 09/27/16 at 19:00 Glucose (Glutose) 15 gm Q15M PRN PO DECREASED GLUCOSE; Start 09/27/16 at 19:00 Glucose (Glutose) 22.5 gm Q15M PRN PO DECREASED GLUCOSE; Start 09/27/16 at 19:00 Dextrose (D50w Syringe) 25 ml Q15M PRN IV DECREASED GLUCOSE; Start 09/27/16 at 19:00 Dextrose (D50w Syringe) 50 ml Q15M PRN IV DECREASED GLUCOSE; Start 09/27/16 at 19:00 Glucagon (Glucagen) 1 mg Q15M PRN IM DECREASED GLUCOSE; Start 09/27/16 at 19:00 Glucose (Glutose) 15 gm Q15M PRN BUCCAL DECREASED GLUCOSE; Start 09/27/16 at 19: 00 Diagnostic Test (Pha) (Accucheck) 1 ea 02 XX Last administered on 09/29/16 02: 24; Admin Dose 1 EA; Start 09/28/16 at 02:00 Hydralazine HCl (Apresoline) 25 mg TID PO Last administered on 09/29/16 08:37; Admin Dose 25 MG; Start 09/28/16 at 21:00 JERICHO NINA MD Sep 29, 2016 12:00
--- NOTE | 2016-09-29 13:04 | OPPN ---
Date/Time of Note Date/Time of Note DATE: 09/29/16 TIME: 13:02 Operative/Procedure Note Pre-Operative Diagnosis ESRD Post-Operative Diagnosis ESRD Procedure LUE AVF Surgeon: CONSTANZA AWAD MD Implants/Grafts: Not applicable Estimated blood loss: minimal Specimens: Not Applicable Complications: None Anesthesia type: CONSTANZA MCDONALD MD Sep 29, 2016 13:04
--- NOTE | 2016-09-29 15:54 | CONS ---
Date/Time of Note Date/Time of Note DATE: 09/29/16 TIME: 15:50 Assessment/Plan Assessment/Plan Additional Assessment/Plan 1.Cad with triple vessel disease 2.PAD with nonhealing toe ulcer 3.HTN 4.DM 5. Dyslipidemia Hemodynamically stable Awaiting Bypass surgery Continue Current Medical Regimen Consultation Date/Type/Reason Admit Date/Time Sep 27, 2016 at 10:27 Constitutional: no complaints Respiratory: no complaints Cardiovascular: no complaints Gastrointestinal: no complaints Musculoskeletal: no complaints Psychological: no complaints Social History Smoking Status: Former smoker Exam/Review of Systems Vital Signs Vitals Vital Signs Date Time Temp Pulse Resp B/P Pulse Ox O2 Delivery O2 Flow Rate FiO2 09/29/16 15:00 97.9 103 20 135/79 98 09/29/16 05:00 Room Air Intake and Output 09/28/16 09/28/16 09/29/16 15:00 23:00 07:00 Intake Total 1250 ml 740 ml Output Total 900 ml 700 ml Balance 350 ml 40 ml Exam Head: atraumatic, normocephalic Neck: non-tender, supple Respiratory: clear to auscultation Cardiovascular: regular rate and rhythm Gastrointestinal: nl liver, spleen, non-tender, soft Extremities: other (left toe ulcer) Results Result Diagram: 09/29/16 0732 09/29/16 0732 Results 24 hrs Laboratory Tests Test 09/28/16 16:35 09/28/16 20:37 09/29/16 02:20 09/29/16 07:32 Bedside Glucose 183 255 H 188 Anion Gap 18 H Basophils # 0.1 Basophils % 0.8 Blood Urea Nitrogen 19 Calcium Level 9.1 Carbon Dioxide Level 24 Chloride Level 104 Creatinine 0.80 Eosinophils # 0.1 Eosinophils % 1.4 Glucose Level 209 Hematocrit 43.7 Hemoglobin 15.6 Lymphocytes # 2.1 Lymphocytes % 32.1 Mean Corpuscular Hemoglobin 31.5 Mean Corpuscular Hemoglobin Concent 35.7 Mean Corpuscular Volume 88.1 Mean Platelet Volume 10.0 # Monocytes # 0.7 Monocytes % 10.7 Neutrophils # 3.6 Neutrophils % 54.7 Nucleated Red Blood Cells # 0.0 Nucleated Red Blood Cells % 0.0 Platelet Count 229 Potassium Level 4.1 Red Blood Count 4.96 Red Cell Distribution Width 12.0 Sodium Level 142 White Blood Count 6.5 Test 09/29/16 07:44 09/29/16 11:25 Bedside Glucose 215 261 H Medications Medications Current Medications Morphine Sulfate (morphine) 2 mg Q2H PRN IV FOR NON CARDIAC PAIN (4-10); Start 09/27/16 at 10:30 Al Hydrox/Mg Hydrox/Simethicone (Mag-Al Plus) 30 ml Q4H PRN PO GASTROINTESTINAL UPSET; Start 09/27/16 at 10:30 Aspirin (Halfprin) 81 mg DAILY PO Last administered on 09/29/16 08:37; Admin Dose 81 MG; Start 09/28/16 at 09:00 Enalapril Maleate 20 mg 20 mg DAILY PO Last administered on 09/29/16 08:37; Admin Dose 20 MG; Start 09/28/16 at 09:00 Sodium Chloride (1/2 NS) 1,000 ml @ 50 mls/hr Q20H IV Last administered on 09/29 06:47; Admin Dose 50 MLS/HR; Start 09/27/16 at 18:05 Ondansetron HCl (Zofran Inj) 4 mg Q6H PRN IV NAUSEA AND/OR VOMITING; Start 09/27 at 18:30 Acetaminophen (Tylenol Tab) 650 mg Q6H PRN PO PAIN LEVEL 1-3 OR FEVER; Start at 18:30 Acetaminophen (Tylenol Supp) 650 mg Q6H PRN [place] PAIN LEVEL 1-3 OR FEVER; Start 09/27/16 at 18:30 Acetaminophen/ Hydrocodone Bitart ([place] (5/325)) 1 tab Q6H PRN PO MODERATE PAIN LEVEL 4-6; Start 09/27/16 at 18:30 Hydromorphone HCl (Dilaudid) 0.5 mg Q4H PRN IV SEVERE PAIN LEVEL 7-10; Start at 18:30 Docusate Sodium (Colace) 100 mg Q12H PRN PO CONSTIPATION; Start 09/27/16 at 18: 30 Magnesium Hydroxide (Milk Of Mag) 30 ml DAILY PRN PO CONSTIPATION; Start at 18:30 Bisacodyl (Dulcolax) 5 mg DAILY PRN PO CONSTIPATION; Start 09/27/16 at 18:30 Enoxaparin Sodium (Lovenox) 40 mg DAILY SC Last administered on 09/29/16 08:36 ; Admin Dose 40 MG; Start 09/28/16 at 09:00 Miscellaneous Information 1 ea NOTE XX ; Start 09/27/16 at 19:00 Glucose (Glutose) 15 gm Q15M PRN PO DECREASED GLUCOSE; Start 09/27/16 at 19:00 Glucose (Glutose) 22.5 gm Q15M PRN PO DECREASED GLUCOSE; Start 09/27/16 at 19:00 Dextrose (D50w Syringe) 25 ml Q15M PRN IV DECREASED GLUCOSE; Start 09/27/16 at 19:00 Dextrose (D50w Syringe) 50 ml Q15M PRN IV DECREASED GLUCOSE; Start 09/27/16 at 19:00 Glucagon (Glucagen) 1 mg Q15M PRN IM DECREASED GLUCOSE; Start 09/27/16 at 19:00 Glucose (Glutose) 15 gm Q15M PRN BUCCAL DECREASED GLUCOSE; Start 09/27/16 at 19: 00 Diagnostic Test (Pha) (Accucheck) 1 ea 02 XX Last administered on 09/29/16 02: 24; Admin Dose 1 EA; Start 09/28/16 at 02:00 Hydralazine HCl (Apresoline) 25 mg TID PO Last administered on 09/29/16 12:52; Admin Dose 25 MG; Start 09/28/16 at 21:00 JULIANNE LOPEZ M.D. Sep 29, 2016 15:54
[2016-09-30] VITALS (9 sets, daily range): BP systolic 121–154; BP diastolic 82–85; PULSE 77–99; RESP 18–20
[2016-09-30] MEDS: ACCUCHECK XX SCH (02:00)
[2016-09-30] MEDS: SOD CHLORIDE 0.45% 1,000 ML IV SCH (05:32)
[2016-09-30] MEDS: ENALAPRIL 20 MG TAB PO SCH (08:34)
[2016-09-30] MEDS: ASPIRIN (EC) 81 MG TAB PO SCH (08:34)
[2016-09-30] MEDS: ENOXAPARIN 40 MG/0.4 ML SYG SC SCH (08:35)
[2016-09-30] MEDS: INSULIN ASPART [NOVOLOG] 3 ML PEN SC SCH ×4 (08:37→20:55)
--- NOTE | 2016-09-30 10:51 | PN ---
Date/Time of Note Date/Time of Note DATE: 09/30/16 TIME: 10:50 Assessment/Plan Lines/Catheters IV C[facility]ter Type (from [facility]): Saline Lock Assessment/Plan Chief Complaint/Hosp Course IMPRESSION: 1. Coronary artery disease. 2. Peripheral vascular disease. 3. Left toe ulcer. RECOMMENDATIONS: The patient will need to undergo coronary artery bypass grafting. This was discussed with the patient. He wants me to discuss this again with his daughter tomorrow. Will discuss care of the patient with the daughter Carotid Duplex without sig disease Plan for CABG on Tomorrow Risk and benefits explained Problems: Subjective 24 Hr Interval Summary Constitutional: improved Pain Control: mild Exam/Review of Systems Vital Signs Vitals Vital Signs Date Time Temp Pulse Resp B/P Pulse Ox O2 Delivery O2 Flow Rate FiO2 09/30/16 08:14 77 09/29/16 20:30 97.8 20 159/72 98 Room Air Intake and Output 09/29/16 09/29/16 09/30/16 15:00 23:00 07:00 Intake Total 2050 ml 675 ml Balance 2050 ml 675 ml Exam Neck: non-tender, supple Respiratory: clear to auscultation, normal air movement Cardiovascular: nl pulses, regular rate and rhythm Gastrointestinal: nl liver, spleen, non-tender, soft Results Result Diagram: 09/29/16 0732 09/29/16 0732 CONSTANZA AWAD MD Sep 30, 2016 10:51
--- NOTE | 2016-09-30 19:46 | CONS ---
Date/Time of Note Date/Time of Note DATE: 09/30/16 TIME: 19:45 Assessment/Plan Assessment/Plan Additional Assessment/Plan 1.Cad with triple vessel disease 2.PAD with nonhealing toe ulcer 3.HTN 4.DM 5. Dyslipidemia Hemodynamically stable Awaiting Bypass surgery Continue Current Medical Regimen Consultation Date/Type/Reason Admit Date/Time Sep 27, 2016 at 10:27 Initial Consult Date Type of Consultation: Cardiology Referring Provider: JERICHO NINA MD Exam/Review of Systems Vital Signs Vitals Vital Signs Date Time Temp Pulse Resp B/P Pulse Ox O2 Delivery O2 Flow Rate FiO2 09/30/16 16:07 94 09/30/16 12:00 98.1 20 144/82 98 Room Air Intake and Output 09/29/16 09/29/16 09/30/16 15:00 23:00 07:00 Intake Total 2050 ml 675 ml Balance 2050 ml 675 ml Exam Head: atraumatic, normocephalic Neck: non-tender, supple Respiratory: clear to auscultation Cardiovascular: regular rate and rhythm Gastrointestinal: nl liver, spleen, non-tender, soft Extremities: other (left toe ulcer) Results Result Diagram: 09/29/16 0732 09/29/16 0732 Results 24 hrs Laboratory Tests Test 09/29/16 20:53 09/30/16 03:13 09/30/16 07:56 09/30/16 12:17 Bedside Glucose 238 H 208 189 238 H Test 09/30/16 17:11 Bedside Glucose 259 H Medications Medications Current Medications Morphine Sulfate (morphine) 2 mg Q2H PRN IV FOR NON CARDIAC PAIN (4-10); Start 09/27/16 at 10:30 Al Hydrox/Mg Hydrox/Simethicone (Mag-Al Plus) 30 ml Q4H PRN PO GASTROINTESTINAL UPSET; Start 09/27/16 at 10:30 Aspirin (Halfprin) 81 mg DAILY PO Last administered on 09/30/16 08:34; Admin Dose 81 MG; Start 09/28/16 at 09:00 Enalapril Maleate 20 mg 20 mg DAILY PO Last administered on 09/30/16 08:34; Admin Dose 20 MG; Start 09/28/16 at 09:00 Sodium Chloride (1/2 NS) 1,000 ml @ 50 mls/hr Q20H IV Last administered on 09/30 05:32; Admin Dose 50 MLS/HR; Start 09/27/16 at 18:05 Ondansetron HCl (Zofran Inj) 4 mg Q6H PRN IV NAUSEA AND/OR VOMITING; Start 09/27 at 18:30 Acetaminophen (Tylenol Tab) 650 mg Q6H PRN PO PAIN LEVEL 1-3 OR FEVER; Start at 18:30 Acetaminophen (Tylenol Supp) 650 mg Q6H PRN [place] PAIN LEVEL 1-3 OR FEVER; Start 09/27/16 at 18:30 Acetaminophen/ Hydrocodone Bitart ([place] (5/325)) 1 tab Q6H PRN PO MODERATE PAIN LEVEL 4-6; Start 09/27/16 at 18:30 Hydromorphone HCl (Dilaudid) 0.5 mg Q4H PRN IV SEVERE PAIN LEVEL 7-10; Start at 18:30 Docusate Sodium (Colace) 100 mg Q12H PRN PO CONSTIPATION; Start 09/27/16 at 18: 30 Magnesium Hydroxide (Milk Of Mag) 30 ml DAILY PRN PO CONSTIPATION; Start at 18:30 Bisacodyl (Dulcolax) 5 mg DAILY PRN PO CONSTIPATION; Start 09/27/16 at 18:30 Enoxaparin Sodium (Lovenox) 40 mg DAILY SC Last administered on 09/30/16 08:35 ; Admin Dose 40 MG; Start 09/28/16 at 09:00; Status Future Hold Miscellaneous Information 1 ea NOTE XX ; Start 09/27/16 at 19:00 Glucose (Glutose) 15 gm Q15M PRN PO DECREASED GLUCOSE; Start 09/27/16 at 19:00 Glucose (Glutose) 22.5 gm Q15M PRN PO DECREASED GLUCOSE; Start 09/27/16 at 19:00 Dextrose (D50w Syringe) 25 ml Q15M PRN IV DECREASED GLUCOSE; Start 09/27/16 at 19:00 Dextrose (D50w Syringe) 50 ml Q15M PRN IV DECREASED GLUCOSE; Start 09/27/16 at 19:00 Glucagon (Glucagen) 1 mg Q15M PRN IM DECREASED GLUCOSE; Start 09/27/16 at 19:00 Glucose (Glutose) 15 gm Q15M PRN BUCCAL DECREASED GLUCOSE; Start 09/27/16 at 19: 00 Diagnostic Test (Pha) (Accucheck) 1 ea 02 XX Last administered on 09/29/16 02: 24; Admin Dose 1 EA; Start 09/28/16 at 02:00 Hydralazine HCl (Apresoline) 25 mg TID PO Last administered on 09/30/16 12:40; Admin Dose 25 MG; Start 09/28/16 at 21:00 JULIANNE LOPEZ M.D. Sep 30, 2016 19:46
--- NOTE | 2016-09-30 22:39 | PN ---
Date/Time of Note Date/Time of Note DATE: 09/30/16 TIME: 22:38 Assessment/Plan VTE Prophylaxis VTE Prophylaxis Intervention: other Lines/Catheters IV Catheter Type (from Nrs): Saline [place] Assessment/Plan Chief Complaint/Hosp Course A/P DM HTN S/P CATH POSITIVE FOR CAD PVD PLAN WILL NEED CABG soon Problems: Subjective 24 Hr Interval Summary Cardiovascular: no complaints Gastrointestinal: no complaints Genitourinary: no complaints Exam/Review of Systems Vital Signs Vitals Vital Signs Date Time Temp Pulse Resp B/P Pulse Ox O2 Delivery O2 Flow Rate FiO2 09/30/16 20:31 96 09/30/16 20:15 98.2 18 154/85 95 Room Air Intake and Output 09/29/16 09/29/16 09/30/16 15:00 23:00 07:00 Intake Total 2050 ml 675 ml Balance 2050 ml 675 ml Exam Neck: supple Respiratory: clear to auscultation Cardiovascular: regular rate and rhythm Gastrointestinal: soft Musculoskeletal: nl extremities to inspection Extremities: normal pulses Results Result Diagram: 09/29/16 0732 09/29/16 0732 Results 24 hrs Laboratory Tests Test 09/30/16 03:13 09/30/16 07:56 09/30/16 12:17 09/30/16 17:11 Bedside Glucose 208 189 238 H 259 H Test 09/30/16 20:53 Bedside Glucose 198 Medications Medications Current Medications Morphine Sulfate (morphine) 2 mg Q2H PRN IV FOR NON CARDIAC PAIN (4-10); Start 09/27/16 at 10:30 Al Hydrox/Mg Hydrox/Simethicone (Mag-Al Plus) 30 ml Q4H PRN PO GASTROINTESTINAL UPSET; Start 09/27/16 at 10:30 Aspirin (Halfprin) 81 mg DAILY PO Last administered on 09/30/16 08:34; Admin Dose 81 MG; Start 09/28/16 at 09:00 Enalapril Maleate 20 mg 20 mg DAILY PO Last administered on 09/30/16 08:34; Admin Dose 20 MG; Start 09/28/16 at 09:00 Sodium Chloride (1/2 NS) 1,000 ml @ 50 mls/hr Q20H IV Last administered on 09/30 05:32; Admin Dose 50 MLS/HR; Start 09/27/16 at 18:05 Ondansetron HCl (Zofran Inj) 4 mg Q6H PRN IV NAUSEA AND/OR VOMITING; Start 09/27 at 18:30 Acetaminophen (Tylenol Tab) 650 mg Q6H PRN PO PAIN LEVEL 1-3 OR FEVER; Start at 18:30 Acetaminophen (Tylenol Supp) 650 mg Q6H PRN [place] PAIN LEVEL 1-3 OR FEVER; Start 09/27/16 at 18:30 Acetaminophen/ Hydrocodone Bitart ([place] (5/325)) 1 tab Q6H PRN PO MODERATE PAIN LEVEL 4-6; Start 09/27/16 at 18:30 Hydromorphone HCl (Dilaudid) 0.5 mg Q4H PRN IV SEVERE PAIN LEVEL 7-10; Start at 18:30 Docusate Sodium (Colace) 100 mg Q12H PRN PO CONSTIPATION; Start 09/27/16 at 18: 30 Magnesium Hydroxide (Milk Of Mag) 30 ml DAILY PRN PO CONSTIPATION; Start at 18:30 Bisacodyl (Dulcolax) 5 mg DAILY PRN PO CONSTIPATION; Start 09/27/16 at 18:30 Enoxaparin Sodium (Lovenox) 40 mg DAILY SC Last administered on 09/30/16t 08:35 ; Admin Dose 40 MG; Start 09/28/16 at 09:00; Status Future Hold Miscellaneous Information 1 ea NOTE XX ; Start 09/27/16 at 19:00 Glucose (Glutose) 15 gm Q15M PRN PO DECREASED GLUCOSE; Start 09/27/16 at 19:00 Glucose (Glutose) 22.5 gm Q15M PRN PO DECREASED GLUCOSE; Start 09/27/16 at 19:00 Dextrose (D50w Syringe) 25 ml Q15M PRN IV DECREASED GLUCOSE; Start 09/27/16 at 19:00 Dextrose (D50w Syringe) 50 ml Q15M PRN IV DECREASED GLUCOSE; Start 09/27/16 at 19:00 Glucagon (Glucagen) 1 mg Q15M PRN IM DECREASED GLUCOSE; Start 09/27/16 at 19:00 Glucose (Glutose) 15 gm Q15M PRN BUCCAL DECREASED GLUCOSE; Start 09/27/16 at 19: 00 Diagnostic Test (Pha) (Accucheck) 1 ea 02 XX Last administered on 09/29/16 02: 24; Admin Dose 1 EA; Start 09/28/16 at 02:00 Hydralazine HCl (Apresoline) 25 mg TID PO Last administered on 09/30/16 20:56; Admin Dose 25 MG; Start 09/28/16 at 21:00 JERICHO NINA MD Sep 30, 2016 22:39
[2016-10-01] VITALS (46 sets, daily range): BP systolic 85–177; BP diastolic 51–86; PULSE 86–128; RESP 14–31; TEMP 98.4–100
[2016-10-01] MEDS: ACCUCHECK XX SCH ×9 (02:00→23:30)
[2016-10-01] MEDS: SOD CHLORIDE 0.45% 1,000 ML IV SCH ×2 (02:17→22:05)
[2016-10-01] MEDS ORDERED: PAPAVERINE 60 MG INJ ONE (06:42)
[2016-10-01] MEDS ORDERED: HEPARIN 1000 UNITS/ML 10 ML INJ ONE ×4 (06:42→10:35)
[2016-10-01] MEDS ORDERED: NITROGLYCERIN 50 MG/D5W 250 ML BTL ONE (07:00)
[2016-10-01] MEDS ORDERED: INSULIN REGULAR, HUMAN 100 UNIT/1 ML 3ML VIAL ONE (07:00)
[2016-10-01] MEDS ORDERED: DOPamine-D5W 1.6 MG/ML 250 ML ONE (07:00)
[2016-10-01] MEDS ORDERED: GELATIN SIZE 100 SPONGE ONE (07:16)
[2016-10-01] MEDS ORDERED: THROMBIN 5000 UNIT VIAL ONE (07:17)
[2016-10-01] MEDS ORDERED: MIDAZOLAM 5 ML ONE ×2 (07:31→09:59)
[2016-10-01] MEDS ORDERED: AMINOCAPROIC ACID 5 GM INJ ONE ×4 (07:38→12:01)
[2016-10-01] MEDS ORDERED: CEFAZOLIN 1 GM INJ ONE ×2 (07:38→12:01)
[2016-10-01] MEDS ORDERED: PHENYLephrine (100 MCG/ML) 5ML SYG ONE ×3 (07:38→12:04)
[2016-10-01] MEDS ORDERED: PHENYLephrine 10 MG INJ ONE (07:43)
[2016-10-01] MEDS ORDERED: MANNITOL 25% 150 ML ONE (07:43)
[2016-10-01] MEDS ORDERED: LIDOCAINE 100 MG SYRINGE ONE (07:43)
[2016-10-01] MEDS ORDERED: NA BICARBONATE 8.4% 50 ML SYG ONE ×2 (07:43→10:43)
[2016-10-01] MEDS ORDERED: MAGNESIUM SULFATE (MG) 50% 10 ML INJ ONE (07:43)
[2016-10-01] MEDS ORDERED: POTASSIUM CHLORIDE 40 MEQ INJ ONE (07:43)
[2016-10-01] MEDS ORDERED: ALBUMIN HUMAN 25% 100 ML ONE (07:43)
[2016-10-01] MEDS ORDERED: CA CHLORIDE 10% 10 ML SYRINGE ONE (07:43)
[2016-10-01] MEDS ORDERED: FUROSEMIDE 20 MG INJ ONE ×2 (10:23→13:35)
[2016-10-01] MEDS ORDERED: PROTAMINE 250 MG INJ ONE (12:05)
--- NOTE | 2016-10-01 12:57 | CONS ---
Date/Time of Note Date/Time of Note DATE: 10/01/16 TIME: 12:55 Assessment/Plan Assessment/Plan Chief Complaint/Hosp Course Imp: 1.Cad s/p cath with multivessel obstructive cad by cath this admit 2.PAD with nonhealing toe ulcer 3.HTN 4.DM 5. Dyslipidemia Recc: -Tele -CABG today -continue asa -Continue enalapril -Start statin and BB -Local wound care Problems: Consultation Date/Type/Reason Admit Date/Time Sep 27, 2016 at 10:27 Initial Consult Date 09/27/2016 Type of Consultation: Cardiology Reason for Consultation cad Referring Provider: JERICHO NINA MD Exam/Review of Systems Vital Signs Vitals Vital Signs Date Time Temp Pulse Resp B/P Pulse Ox O2 Delivery O2 Flow Rate FiO2 10/01/16 04:36 98.7 94 18 151/86 92 10/01/16 00:00 Room Air Intake and Output 09/30/16 09/30/16 10/01/16 15:00 23:00 07:00 Intake Total 1450 ml 825 ml Output Total 1200 ml Balance 250 ml 825 ml Exam Review of Systems: CONSTITUTIONAL: No fevers, chills. PULMONARY: No sob CARDIOVASCULAR: intermittent chest pain/palpitations GASTROINTESTINAL: No nausea/vomiting. GENITOURINARY: No hematuria/dysuria. MUSCULOSKELETAL: Toe pain PSYCHIATRIC: The patient denies depression. NEUROLOGIC: No weakness Constitutional: alert, oriented Psych: no complaints Head: normocephalic ENMT: mucosa pink and moist Neck: jvd (8-9 cm water), supple Respiratory: diminished breath sounds (at bases/B) Cardiovascular: regular rate and rhythm Gastrointestinal: non-tender, soft Musculoskeletal: muscle tone (normal) Extremities: edema (none) Neurological: other (No focal deficits) Results Result Diagram: 09/29/16 0732 09/29/16 0732 Results 24 hrs Laboratory Tests Test 09/30/16 17:11 09/30/16 20:53 10/01/16 05:43 Bedside Glucose 259 H 198 185 Medications Medications Current Medications Morphine Sulfate (morphine) 2 mg Q2H PRN IV FOR NON CARDIAC PAIN (4-10); Start 09/27/16 at 10:30 Al Hydrox/Mg Hydrox/Simethicone (Mag-Al Plus) 30 ml Q4H PRN PO GASTROINTESTINAL UPSET; Start 09/27/16 at 10:30 Aspirin (Halfprin) 81 mg DAILY PO Last administered on 09/30/16 08:34; Admin Dose 81 MG; Start 09/28/16 at 09:00 Enalapril Maleate 20 mg 20 mg DAILY PO Last administered on 09/30/16 08:34; Admin Dose 20 MG; Start 09/28/16 at 09:00 Sodium Chloride (1/2 NS) 1,000 ml @ 50 mls/hr Q20H IV Last administered on 10/01 02:17; Admin Dose 50 MLS/HR; Start 09/27/16 at 18:05 Ondansetron HCl (Zofran Inj) 4 mg Q6H PRN IV NAUSEA AND/OR VOMITING; Start 09/27 at 18:30 Acetaminophen (Tylenol Tab) 650 mg Q6H PRN PO PAIN LEVEL 1-3 OR FEVER; Start at 18:30 Acetaminophen (Tylenol Supp) 650 mg Q6H PRN [place] PAIN LEVEL 1-3 OR FEVER; Start 09/27/16 at 18:30 Acetaminophen/ Hydrocodone Bitart ([place] (5/325)) 1 tab Q6H PRN PO MODERATE PAIN LEVEL 4-6; Start 09/27/16 at 18:30 Hydromorphone HCl (Dilaudid) 0.5 mg Q4H PRN IV SEVERE PAIN LEVEL 7-10; Start at 18:30 Docusate Sodium (Colace) 100 mg Q12H PRN PO CONSTIPATION; Start 09/27/16 at 18: 30 Magnesium Hydroxide (Milk Of Mag) 30 ml DAILY PRN PO CONSTIPATION; Start at 18:30 Bisacodyl (Dulcolax) 5 mg DAILY PRN PO CONSTIPATION; Start 09/27/16 at 18:30 Enoxaparin Sodium (Lovenox) 40 mg DAILY SC Last administered on 09/30/16 08:35 ; Admin Dose 40 MG; Start 09/28/16 at 09:00; Status Future Hold Miscellaneous Information 1 ea NOTE XX ; Start 09/27/16 at 19:00 Glucose (Glutose) 15 gm Q15M PRN PO DECREASED GLUCOSE; Start 09/27/16 at 19:00 Glucose (Glutose) 22.5 gm Q15M PRN PO DECREASED GLUCOSE; Start 09/27/16 at 19:00 Dextrose (D50w Syringe) 25 ml Q15M PRN IV DECREASED GLUCOSE; Start 09/27/16 at 19:00 Dextrose (D50w Syringe) 50 ml Q15M PRN IV DECREASED GLUCOSE; Start 09/27/16 at 19:00 Glucagon (Glucagen) 1 mg Q15M PRN IM DECREASED GLUCOSE; Start 09/27/16 at 19:00 Glucose (Glutose) 15 gm Q15M PRN BUCCAL DECREASED GLUCOSE; Start 09/27/16 at 19: 00 Diagnostic Test (Pha) (Accucheck) 1 ea 02 XX Last administered on 09/29/16 02: 24; Admin Dose 1 EA; Start 09/28/16 at 02:00 Hydralazine HCl 25 mg 25 mg TID PO Last administered on 09/30/16 20:56; Admin Dose 25 MG; Start 09/28/16 at 21:00 Epinephrine 4 mg/ Dextrose 250 ml @ 0 mls/hr INTRA-OP IV ; Start 10/01/16 at 13: 00; Stop 10/01/16 at 13:01 Phenylephrine HCl 250 ml @ 0 mls/hr INTRA-OP IV ; Start 10/01/16 at 13:00; Stop 10/01/16 at 13:01 Insulin Human Regular/Sodium Chloride (Humulin R/NS) 100 ml @ 0 mls/hr INTRA-OP IV ; Start 10/01/16 at 13:00; Stop 10/01/16 at 13:01 LORI CASTREJON Oct 01, 2016 12:57
[2016-10-01] MEDS ORDERED: EPINEPHrine 4 MG in DEXTROSE 5% 246 ML IV SCH (13:00)
[2016-10-01] MEDS ORDERED: INSULIN REGULAR, HUMAN 100 UNIT in SOD CHLORIDE 0.9% 99 ML IV SCH ×2 (13:00)
[2016-10-01] MEDS ORDERED: PHENYLephrine 20MG IN 250 ML 250 ML IV SCH (13:00)
[2016-10-01] MEDS ORDERED: ETOMIDATE 20 MG INJ ONE (13:46)
[2016-10-01] MEDS ORDERED: LIDOCAINE 2% (SDV) 5 ML INJ ONE (13:46)
--- NOTE | 2016-10-01 13:49 | OPPN ---
Date/Time of Note Date/Time of Note DATE: 10/01/16 TIME: 13:47 Operative/Procedure Note Pre-Operative Diagnosis CAD Post-Operative Diagnosis CAD Procedure CABG Surgeon: CONSTANZA AWAD MD Bottling Room Worker: JOSÉ LUIS GARCIA MD Implants/Grafts: Not applicable Drains CT Complications: None Anesthesia type: general CONSTANZA AWAD MD Oct 01, 2016 13:49
[2016-10-01] MEDS ORDERED: ROCURONIUM 50 MG INJ ONE ×2 (13:53)
--- NOTE | 2016-10-01 14:10 | RADRPT ---
PROCEDURE: XR Chest. CLINICAL INDICATION: Postoperative evaluation, instrument count TECHNIQUE: Single frontal chest x-ray. COMPARISON: None. FINDINGS: Endotracheal tube tip is in the mid trachea. Mediastinal drain and left-sided chest tube are identi fied, without pneumothorax. Right-sided [place]-Terry catheter tip projects over the region of a left l ower lobe pulmonary artery branch. The patient is status post sternotomy. No acute infiltrate or s ignificant pleural effusion is identified. No radiodense foreign body is seen. The osseous structu res are unremarkable. IMPRESSION: 1. Lines and tubes in place, as above. 2. No radiodense foreign body is identified. RPTAT: QQ .Alex Pastor MD, MD Date Time Electronically viewed and signed by .Alex Pastor MD, MD on 10/01/2016 14:09 .R/
--- NOTE | 2016-10-01 14:11 | RADRPT ---
PROCEDURE: XR Tibia and Fibula. CLINICAL INDICATION: Postoperative evaluation, instrument count TECHNIQUE: Single AP view of the left tibia and fibula is available for review. COMPARISON: None available FINDINGS: Surgical clips and skin glen project over the upper and lower calf. No radiodense foreign body i s identified. There is no acute fracture or dislocation. IMPRESSION: 1. No evidence of radiodense foreign body. RPTAT: QQ .Alex Pastor MD, MD Date Time Electronically viewed and signed by .Alex Pastor MD, MD on 10/01/2016 14:11 .R/
[2016-10-01 14:37] LABS: BASOPHILS % 0.1 % (0.0-2.0); EOSINOPHILS % 0.2 % (0.0-7.0); HEMATOCRIT 29.5 % (42.0-52.0); HEMOGLOBIN 10.2 g/dl (14.0-18.0); LYMPHOCYTES # 1.6 10^3/ul (0.8-2.9); LYMPHOCYTES % 15.1 % (15.0-51.0); MEAN CORPUSCULAR HEMOGLOBIN 31.9 pg (29.0-33.0); MEAN CORPUSCULAR HGB CONC 34.5 g/dl (32.0-37.0); MEAN CORPUSCULAR VOLUME 92.4 fl (82.0-101.0); MEAN PLATELET VOLUME 6.6 fl (7.4-10.4); MONOCYTE # 0.3 10^3/ul (0.3-0.9); MONOCYTES % 2.7 % (0.0-11.0); NEUTROPHIL # 8.6 10^3/ul (1.6-7.5); NEUTROPHILS % 81.9 % (39.0-77.0); PLATELET COUNT 159 10^3/UL (140-440); RED BLOOD COUNT 3.19 10^6/ul (4.70-6.10); RED CELL DISTRIBUTION WIDTH 12.8 % (11.5-14.5); UNCORRECTED WBC 10.6 10^3/ul (4.8-10.8); WHITE BLOOD COUNT 10.6 10^3/ul (4.8-10.8)
[2016-10-01 14:46] LABS: POTASSIUM 3.4 mmol/L (3.5-5.1)
[2016-10-01 14:47] LABS: CONDITION 1; INR 1.23; PROTIME 15.6 Sec (12.2-14.2); PT RATIO 1.2
[2016-10-01 14:48] LABS: PARTIAL THROMBOPLASTIN TIME 32.6 Sec (25.0-35.0)
[2016-10-01 14:49] LABS: CALCIUM 8.9 mg/dl (8.4-10.2); CREATININE 0.9 mg/dl (0.61-1.24); MAGNESIUM 3.1 mg/dl (1.7-2.5)
[2016-10-01 15:17] LABS: AADO2 Arterial 351.9 mmHg (7.0-24.0); Arterial Base Excess -1.9 mmol/L (-3.0-3); Arterial COHb 0.2 % (0.0-3.0); Arterial HCO3 22.9 mmol/L (22.0-26.0); Arterial MetHb 0.4 % (0.0-1.5); Arterial Total Hemglobin 10.1 g/dl (12.0-18.0); MODE VENT - AC
[2016-10-01 15:19] LABS: MODE VENT - AC; MetHgb Mixed Venous 0.6 %; Mixed Venous COHb 0.3 %; Mixed Venous Oxygen Sat 65.6 mmHG (65.0-75.0); Sample Type BLMV
--- NOTE | 2016-10-01 15:22 | OPR ---
DATE OF OPERATION: 10/01/2016 PREOPERATIVE DIAGNOSIS: Coronary artery disease. POSTOPERATIVE DIAGNOSIS: Coronary artery disease. OPERATION PERFORMED: 1. Coronary artery bypass grafting x6, left internal mammary artery to left anterior descending, sa phenous vein graft to the first diagonal branch of the left anterior descending, saphenous vein anu t to the second diagonal branch of the LAD in a wide fashion. 2. Saphenous vein graft to the obtuse marginal branch of the circumflex. 3. Saphenous vein graft to the posterior descending artery. 4. Saphenous vein graft to the posterolateral artery in an open fashion at the bifurcation. 5. Right coronary endarterectomy. 6. Right coronary endarterectomy. 7. Left anterior descending endarterectomy. 8. Saphenous vein harvest from the left lower extremity. 9. Thymectomy. SURGEON: Constanza Alberto MD. HAIR SPRING WINDER: Raymond Rehman MD INFORMED CONSENT: Risks, benefits, complications, alternative therapies, high-risk nature of the op eration were fully explained to the patient and the family, consent obtained. OPERATIVE TECHNIQUE: Patient was taken to the operating room. After induction of general anesthesi a, prepped and draped in usual sterile fashion. A timeout was called, antibiotics were given and I started. A sternotomy incision was made from the sternal notch down to the xiphoid process. Left saphenous vein was harvested from the ankle up to the groin using endoscopic technique. The sternum was opened in the mid aspect. Left internal mammary artery was harvested using electroc autery and titanium clips. Chest retractor was placed. was overriding aorta which was then removed. Pericardium opened, patient fully heparinized. Pericardial cradle was made. Cannulation sutures all 3-0 Prolene with pledgets were applied to the base distal ascending aorta, m id ascending aorta, body of the right atrium, and right atrial appendage. After adequate documentat ion of ACT, the aorta was cannulated followed by 2-stage venous cannula, antegrade and retrograde ca rdioplegia cannula. Cardiopulmonary bypass was commenced. After stabilization on bypass, cross cla mp was applied to the soft part of the aorta. Heart was arrested using anterior and retrograde card ioplegia given every 15 to 20 minutes supplemented by topical slush to the surface of the heart, sup plemented by cardioplegia given through the vein grafts as they were being constructed. We subseque ntly proceeded with the distal anastomosis. Anastomoses were done to 8 mm longitudinal arteriotomie s except for the right coronary artery which was done at the bifurcation extending flow into the PDA and BEATRIZ. The saphenous vein graft was used for the obtuse marginal branch of the circumflex, saphenous vein g raft was used for PDA and BEATRIZ and saphenous vein graft was used in a natural Y fashion for the 2 he gonals. All distal anastomoses were done with 7-0 Prolene in continuous manner, end-to-side suture technique. The mammary artery was anastomosed to the LAD in a similar fashion. The 3 proximal ottoniel stomoses were done on the same Cross clamp, 4.5 mm punches and 6-0 Prolene in continuous suture tech nique. Head was placed in steep Trendelenburg position and cross clamp removed. The heart and the grafts were deaired. Two ventricular pacing wires and 3 chest tubes, 2 mediastinal and left Donnie t ube were placed, brought out through a lower stab wound, secured to skin using silk sutures. The he art came off cardiopulmonary bypass without any significant difficulty. Cannulas removed, sutures t ied, protamine given. At this time, the heart function appeared to be good. The sternum was closed using the cable system x4 [id number]. The linea alba and the deep tissues were irrigated usin g antibiotic solution and closed in 2 layers of #1 Vicryl suture for the linea alba and the deep tis sues, 2-0 Vicryl suture for subcutaneous and 4-0 Monocryl suture for running subcuticular skin closu re. The leg was closed in a similar fashion. Patient tolerated procedure well. Dictated By: CONSTANZA HOWELL/RAJANI Conf#: [id number] DID#: [id number]
[2016-10-01] MEDS ORDERED: POTASSIUM CHLORIDE 50 ML ONE (15:24)
[2016-10-01] MEDS ORDERED: DEXTROSE 50% 50 ML SYRINGE IV PRN ×2 (15:30)
[2016-10-01] MEDS: POTASSIUM CHLORIDE 40 MEQ, CALCIUM CHLORIDE 10% 1 GM in DEXTROSE 5%-0.225% NACL 1,000 ML IV SCH (16:16)
[2016-10-01] MEDS: INSULIN REGULAR, HUMAN 100 UNIT in SOD CHLORIDE 0.9% 99 ML IV SCH ×2 (16:17)
[2016-10-01] MEDS ORDERED: POTASSIUM CHLORIDE 50 ML IVPB ONE (16:30)
[2016-10-01] MEDS ORDERED: NITROGLYCERIN 50 MG/D5W (PMX) 250 ML IV SCH (16:30)
[2016-10-01] MEDS: HYDROmorphONE 1 MG/ML SYG IV PRN (17:08)
[2016-10-01] MEDS ORDERED: DOPamine-D5W 1.6 MG/ML 250 ML IV PRN (17:30)
[2016-10-01] MEDS ORDERED: MILRINONE LACTATE 100 ML IV PRN ×2 (17:30)
[2016-10-01] MEDS: morphine 2 MG INJ IV PRN ×2 (18:10→20:31)
[2016-10-01] MEDS: POTASSIUM CHLORIDE 50 ML IVPB PRN ×2 (19:53→22:05)
[2016-10-01] MEDS: CEFAZOLIN 1 GM/50 ML (PMX) 50 ML IVPB SCH (21:50)
--- NOTE | 2016-10-01 21:52 | PN ---
Date/Time of Note Date/Time of Note DATE: 10/01/16 TIME: 21:49 Assessment/Plan VTE Prophylaxis VTE Prophylaxis Intervention: other Lines/Catheters IV Catheter Type (from [facility], [place]): A Line Urinary Cath still in place: Yes (PLACED INTRA OP) Reason Cath still needed: other (indicate) Assessment/Plan Chief Complaint/Hosp Course A/P DM HTN S/P CATH POSITIVE FOR CAD PVD 1. Coronary artery bypass grafting x6, left internal mammary artery to left anterior descending, saphenous vein graft to the first diagonal branch of the left anterior descending, saphenous vein graft to the second diagonal branch of the LAD in a wide fashion. 2. Saphenous vein graft to the obtuse marginal branch of the circumflex. 3. Saphenous vein graft to the posterior descending artery. 4. Saphenous vein graft to the posterolateral artery in an open fashion at the bifurcation. 5. Right coronary endarterectomy. 6. Right coronary endarterectomy. 7. Left anterior descending endarterectomy. 8. Saphenous vein harvest from the left lower extremity. 9. Thymectomy PLANper surgery ck labs Problems: Subjective 24 Hr Interval Summary Subjective hx not possible: other Cardiovascular: no complaints Exam/Review of Systems Vital Signs Vitals Vital Signs Date Time Temp Pulse Resp B/P Pulse Ox O2 Delivery O2 Flow Rate FiO2 10/01/16 18:45 108 25 85/52 100 10/01/16 18:00 99.2 10/01/16 17:48 30 10/01/16 00:00 Room Air Intake and Output 09/30/16 09/30/16 10/01/16 15:00 23:00 07:00 Intake Total 1450 ml 825 ml Output Total 1200 ml Balance 250 ml 825 ml Exam Respiratory: clear to auscultation Cardiovascular: regular rate and rhythm Gastrointestinal: soft Musculoskeletal: nl extremities to inspection Extremities: normal pulses, No edema Results Result Diagram: 10/01/16 1430 10/01/16 1840 Results 24 hrs Laboratory Tests Test 10/01/16 05:43 10/01/16 14:00 10/01/16 14:20 10/01/16 14:30 Bedside Glucose 185 119 Arterial Blood HCO3 22.9 Arterial Blood Base Excess -1.9 Arterial Blood Oxygen Saturation 96.6 Jack Test N/A Arterial Blood Gas Puncture Site A-Line Arterial Blood Carboxyhemoglobin 0.2 Arterial Blood Date Drawn 10/01/2016 3:04:24 PM Arterial Blood Methemoglobin 0.4 Arterial Blood pCO2 (Temp correct) 39.1 Arterial Blood pH (Temp corrected) 7.385 Arterial Blood pO2 (Temp corrected) 105.2 H Blood Gas A-a O2 Differential 351.9 H Blood Gas Actual Respiration Rate 14 Blood Gas Low PEEP Setting 5.0 Blood Gas Modality VENT - AC Blood Gas Notified Time 10/01/2016 3:15:04 PM Blood Gas Notified Whom JLD Blood Gas Respiration Rate 14.0 Blood Gas Specimen Source Blood arterial Blood Gas Temperature 37.0 Blood Gas Tidal Volume 550.0 FiO2 70.0 Oxyhemoglobin Percent 96.0 Total Hemoglobin 10.1 L Activated Partial Thromboplast Time 32.6 Anion Gap 16 Basophils # 0.0 Basophils % 0.1 Blood Morphology Comment Blood Urea Nitrogen 19 Calcium Level 8.9 Carbon Dioxide Level 25 Chloride Level 106 Creatinine 0.90 Eosinophils # 0.0 Eosinophils % 0.2 Glucose Level 107 Hematocrit 29.5 #L Hemoglobin 10.2 #L INR International Normalized Ratio 1.23 Lymphocytes # 1.6 Lymphocytes % 15.1 Magnesium Level 3.1 H Mean Corpuscular Hemoglobin 31.9 Mean Corpuscular Hemoglobin Concent 34.5 Mean Corpuscular Volume 92.4 Mean Platelet Volume 6.6 #L Monocytes # 0.3 Monocytes % 2.7 Neutrophils # 8.6 H Neutrophils % 81.9 H Nucleated Red Blood Cells # 0.0 Nucleated Red Blood Cells % 0.0 Platelet Count 159 # Potassium Level 3.4 L Prothrombin Time 15.6 #H Prothrombin Time Ratio 1.2 Red Blood Count 3.19 #L Red Cell Distribution Width 12.8 Sodium Level 144 White Blood Count 10.6 # Test 10/01/16 15:11 10/01/16 15:58 10/01/16 17:05 10/01/16 17:37 Jack Test N/A Arterial Blood Date Drawn 10/01/2016 3:08:48 PM Arterial Blood Gas Puncture Site PUL ART LINE Bedside Glucose 94 96 136 134 Blood Gas Actual Respiration Rate 14 Blood Gas Low PEEP Setting 5.0 Blood Gas Modality VENT - AC Blood Gas Notified Time 10/01/2016 3:19:46 PM Blood Gas Notified Whom JLD Blood Gas Respiration Rate 14.0 Blood Gas Specimen Source BLMV Blood Gas Temperature 37.0 Blood Gas Tidal Volume 550.0 FiO2 70.0 Mixed Venous Bld Carboxyhemoglobin 0.3 Mixed Venous Blood Methemoglobin 0.6 Mixed Venous Blood O2 Saturation 65.6 Mixed Venous Blood Oxyhemoglobin 65.0 Mixed Venous Blood PO2 36.3 Mixed Venous Blood Total Hemoglobin 10.0 Test 10/01/16 18:40 10/01/16 19:59 10/01/16 21:05 Bedside Glucose 114 185 196 Potassium Level 3.5 Medications Medications Current Medications Morphine Sulfate (morphine) 2 mg Q2H PRN IV FOR NON CARDIAC PAIN (4-10) Last administered on 10/01/16 20:31; Admin Dose 2 MG; Start 09/27/16 at 10:30 Al Hydrox/Mg Hydrox/Simethicone (Mag-Al Plus) 30 ml Q4H PRN PO GASTROINTESTINAL UPSET; Start 09/27/16 at 10:30 Enalapril Maleate 20 mg 20 mg DAILY PO Last administered on 09/30/16 08:34; Admin Dose 20 MG; Start 09/28/16 at 09:00 Sodium Chloride (1/2 NS) 1,000 ml @ 50 mls/hr Q20H IV Last administered on 10/01 02:17; Admin Dose 50 MLS/HR; Start 09/27/16 at 18:05 Ondansetron HCl (Zofran Inj) 4 mg Q6H PRN IV NAUSEA AND/OR VOMITING; Start 09/27 at 18:30 Acetaminophen (Tylenol Tab) 650 mg Q6H PRN PO PAIN LEVEL 1-3 OR FEVER; Start at 18:30 Acetaminophen (Tylenol Supp) 650 mg Q6H PRN [place] PAIN LEVEL 1-3 OR FEVER; Start 09/27/16 at 18:30 Acetaminophen/ Hydrocodone Bitart ([place] (5/325)) 1 tab Q6H PRN PO MODERATE PAIN LEVEL 4-6; Start 09/27/16 at 18:30 Hydromorphone HCl (Dilaudid) 0.5 mg Q4H PRN IV SEVERE PAIN LEVEL 7-10 Last administered on 10/01/16 17:08; Admin Dose 0.5 MG; Start 09/27/16 at 18:30 Docusate Sodium (Colace) 100 mg Q12H PRN PO CONSTIPATION; Start 09/27/16 at 18: 30 Magnesium Hydroxide (Milk Of Mag) 30 ml DAILY PRN PO CONSTIPATION; Start at 18:30 Bisacodyl (Dulcolax) 5 mg DAILY PRN PO CONSTIPATION; Start 09/27/16 at 18:30 Enoxaparin Sodium (Lovenox) 40 mg DAILY SC Last administered on 09/30/16 08:35 ; Admin Dose 40 MG; Start 09/28/16 at 09:00; Status Future Hold Hydralazine HCl 25 mg 25 mg TID PO Last administered on 09/30/16 20:56; Admin Dose 25 MG; Start 09/28/16 at 21:00 Potassium Chloride/Calcium Chloride/Dextrose/ Sodium Chloride (KCl/Ca Chloride/ D5-1/4ns) 1,030 ml @ 60 mls/hr [id number] IV Last administered on 10/01/16 16:16 ; Admin Dose 60 MLS/HR; Start 10/01/16 at 14:00 Diagnostic Test (Pha) (Accucheck) 1 ea Q1H XX Last administered on 10/01/16 17: 09; Admin Dose 1 EA; Start 10/01/16 at 15:30 Dextrose (D50w Syringe) 25 ml Q15M PRN IV Till BS 80 mg/dL or above x2; Start 10/01/16 at 15:30 Dextrose 50 ml 50 ml Q15M PRN IV Till BS 80 mg/dL or above x2; Start 10/01/16 at 15:30 Nitroglycerin/ Dextrose 250 ml @ 3.33 mls/hr TITRATE IV Last administered on 17:09; Admin Dose 3.33 MLS/HR; Start 10/01/16 at 16:30 Dopamine HCl/ Dextrose 250 ml @ 5.498 mls/ hr TITRATE PRN IV Hypotension; Start 10/01/16 at 17:30 Milrinone Lactate 100 ml @ 8.246 mls/ hr TITRATE PRN IV hypotension Last administered on 10/01/16 19:24; Admin Dose 3.83 MLS/HR; Start 10/01/16 at 17:30 Cefazolin Sodium (Ancef 1 Gm/50 ml (Pmx)) 50 ml @ 100 mls/hr Q8 IVPB ; Start at 22:00; Stop 10/02/16 at 14:29 Aspirin (Aspirin) 300 mg DAILY [place] ; Start 10/02/16 at 09:00 Pantoprazole (Protonix Iv) 40 mg DAILY@06 IV ; Start 10/02/16 at 06:00 JERICHO NINA MD Oct 01, 2016 21:52
[2016-10-02] VITALS (71 sets, daily range): BP systolic 93–168; BP diastolic 50–102; PULSE 65–122; RESP 19–43; TEMP 99.3–100.8
[2016-10-02 00:06] LABS: HEMATOCRIT 30.6 % (42.0-52.0); HEMOGLOBIN 10.5 g/dl (14.0-18.0)
[2016-10-02] MEDS: ACCUCHECK XX SCH ×25 (00:06→23:42)
[2016-10-02] MEDS: HYDROmorphONE 1 MG/ML SYG IV PRN ×4 (00:08→23:01)
[2016-10-02 00:10] LABS: POTASSIUM 4.1 mmol/L (3.5-5.1)
[2016-10-02 00:13] LABS: MAGNESIUM 2.4 mg/dl (1.7-2.5)
[2016-10-02] MEDS: morphine 2 MG INJ IV PRN ×3 (03:05→08:07)
[2016-10-02 04:17] LABS: HEMATOCRIT 31.2 % (42.0-52.0); HEMOGLOBIN 10.7 g/dl (14.0-18.0); INR 1.08; LYMPHOCYTES # 0.2 10^3/ul (0.8-2.9); LYMPHOCYTES % 1.4 % (15.0-51.0); MEAN CORPUSCULAR HEMOGLOBIN 31.2 pg (29.0-33.0); MEAN CORPUSCULAR HGB CONC 34.4 g/dl (32.0-37.0); MEAN CORPUSCULAR VOLUME 90.7 fl (82.0-101.0); MEAN PLATELET VOLUME 7.9 fl (7.4-10.4); MONOCYTE # 1.1 10^3/ul (0.3-0.9); MONOCYTES % 10.1 % (0.0-11.0); NEUTROPHIL # 9.9 10^3/ul (1.6-7.5); NEUTROPHILS % 88.5 % (39.0-77.0); PARTIAL THROMBOPLASTIN TIME 29.6 Sec (25.0-35.0); PLATELET COUNT 174 10^3/UL (140-440); POTASSIUM 4.4 mmol/L (3.5-5.1); PT RATIO 1.1; RED BLOOD COUNT 3.44 10^6/ul (4.70-6.10); RED CELL DISTRIBUTION WIDTH 13.9 % (11.5-14.5); UNCORRECTED WBC 11.1 10^3/ul (4.8-10.8); WHITE BLOOD COUNT 11.1 10^3/ul (4.8-10.8)
[2016-10-02 04:20] LABS: CREATININE 0.93 mg/dl (0.61-1.24)
[2016-10-02 04:21] LABS: CALCIUM 9.3 mg/dl (8.4-10.2); MAGNESIUM 2.5 mg/dl (1.7-2.5)
[2016-10-02 04:38] LABS: CONDITION 1
[2016-10-02] MEDS: CEFAZOLIN 1 GM/50 ML (PMX) 50 ML IVPB SCH ×2 (05:02→13:27)
[2016-10-02] MEDS: PANTOPRAZOLE 40 MG INJ IV SCH (05:05)
[2016-10-02 05:47] LABS: AADO2 Arterial 74.4 mmHg (7.0-24.0); Arterial Base Excess 0.8 mmol/L (-3.0-3); Arterial COHb 0.5 % (0.0-3.0); Arterial Fraction of Oxyhgb 96.8 % (93.0-99.0); Arterial MetHb 0.2 % (0.0-1.5); Arterial Total Hemglobin 15.8 g/dl (12.0-18.0); Blood Gas PS 10; MODE VENT - CPAP
--- NOTE | 2016-10-02 06:21 | RADRPT ---
PROCEDURE: Chest. CLINICAL INDICATION: Chest pain. TECHNIQUE: Single frontal view of the chest was obtained. COMPARISON: 10/01/2016. FINDINGS: Mediasternotomy wires are present. There is a right-sided [place]-Terry catheter extending to the main pulmonary artery. There is an endotracheal tube 3.5 cm above the jacqueline. The left basilar chest tu be is unchanged. The cardiac silhouette is magnified. The aortic arch is unremarkable. There is mi ld left basilar atelectasis. There is no focal consolidation, vascular congestion or pleural effusio n. There is no pneumothorax. IMPRESSION: Tubes and line in place. Mild left basilar atelectasis. .Brice Paige MD, Date Time Electronically viewed and signed by .Brice Paige MD, on 10/02/2016 06:21 .T/
[2016-10-02] MEDS: ALBUMIN HUMAN 5% 250 ML IV SCH ×2 (06:29→07:29)
[2016-10-02] MEDS: ENALAPRIL 20 MG TAB PO SCH ×2 (09:00→09:29)
[2016-10-02] MEDS: POTASSIUM CHLORIDE 40 MEQ, CALCIUM CHLORIDE 10% 1 GM in DEXTROSE 5%-0.225% NACL 1,000 ML IV SCH (09:28)
[2016-10-02] MEDS: ASPIRIN 300 MG SUPP PR SCH (09:29)
--- NOTE | 2016-10-02 12:14 | CONS ---
Date/Time of Note Date/Time of Note DATE: 10/02/16 TIME: 12:12 Assessment/Plan Assessment/Plan Additional Assessment/Plan 1.Cad s/p cath with multivessel obstructive cad by cath this admit - S/P cabg NOW - TOLERATED PROCEDURE WELL, WILL FOLLOW 2.PAD with nonhealing toe ulcer - DEFER TOP VASCUALAR TEAM 3.HTN - WELL RX NOW, CON'T MED RX 4.DM - ON MEDS, KEEP EUGLYCEMIC 5. Dyslipidemia 6. TEMP PACER - NOT USING NOW Consultation Date/Type/Reason Admit Date/Time Sep 27, 2016 at 10:27 Initial Consult Date Type of Consultation: Cardiology Referring Provider: JERICHO NINA MD 24 HR Interval Summary Free Text/Dictation No acute change - BP stable - con't post OP Care - will monitor ROS: No fever, no chills, no nausea, no vomiting, no diarrhea/constipation No recent weight changes No chest pain, no PND, no orthopnea, - post op as expected No dizziness, blurred vision No thirst, no heat or cold intolerance Exam/Review of Systems Vital Signs Vitals Vital Signs Date Time Temp Pulse Resp B/P Pulse Ox O2 Delivery O2 Flow Rate FiO2 10/02/16 11:45 110 19 115/79 99 10/02/16 11:00 99.1 Nasal Cannula 10/02/16 08:00 4.0 10/02/16 05:15 30 Intake and Output 10/01/16 10/01/16 10/02/16 15:00 23:00 07:00 Intake Total 2908 ml 1179 ml 1130 ml Output Total 2349 ml 1675 ml 353 ml Balance 559 ml -496 ml 777 ml Exam General: WN/WD/NAD, AOx 3 HEENT: Unicetric/atraumatic/EOMI (follow commands) NECK: JVD 7 cm , no thyromegaly Lymph: no lymphadenopathy HEART: soft rub, regular with no S3, II/ systolic murmur at apex, bandage LUNGS: Coarse sounds, chest tube ABD: soft, NT, ND, +BS : Intact Neuro: non focal SKIN: chronic changes EXT: trace edema Results Result Diagram: 10/02/16 0400 10/02/16 0400 Results 24 hrs Laboratory Tests Test 10/01/16 14:00 10/01/16 14:20 10/01/16 14:30 10/01/16 15:11 Arterial Blood HCO3 22.9 Arterial Blood Base Excess -1.9 Arterial Blood Oxygen Saturation 96.6 Jack Test N/A N/A Arterial Blood Gas Puncture Site A-Line PUL ART LINE Arterial Blood Carboxyhemoglobin 0.2 Arterial Blood Date Drawn 10/01/2016 3:04:24 PM 10/01/2016 3:08:48 PM Arterial Blood Methemoglobin 0.4 Arterial Blood pCO2 (Temp correct) 39.1 Arterial Blood pH (Temp corrected) 7.385 Arterial Blood pO2 (Temp corrected) 105.2 H Blood Gas A-a O2 Differential 351.9 H Blood Gas Actual Respiration Rate 14 14 Blood Gas Low PEEP Setting 5.0 5.0 Blood Gas Modality VENT - AC VENT - AC Blood Gas Notified Time 10/01/2016 3:15:04 PM 10/01/2016 3:19:46 PM Blood Gas Notified Whom JLD JLD Blood Gas Respiration Rate 14.0 14.0 Blood Gas Specimen Source Blood arterial BLMV Blood Gas Temperature 37.0 37.0 Blood Gas Tidal Volume 550.0 550.0 FiO2 70.0 70.0 Oxyhemoglobin Percent 96.0 Total Hemoglobin 10.1 L Bedside Glucose 119 94 Activated Partial Thromboplast Time 32.6 Anion Gap 16 Basophils # 0.0 Basophils % 0.1 Blood Morphology Comment Blood Urea Nitrogen 19 Calcium Level 8.9 Carbon Dioxide Level 25 Chloride Level 106 Creatinine 0.90 Eosinophils # 0.0 Eosinophils % 0.2 Glucose Level 107 Hematocrit 29.5 #L Hemoglobin 10.2 #L INR International Normalized Ratio 1.23 Lymphocytes # 1.6 Lymphocytes % 15.1 Magnesium Level 3.1 H Mean Corpuscular Hemoglobin 31.9 Mean Corpuscular Hemoglobin Concent 34.5 Mean Corpuscular Volume 92.4 Mean Platelet Volume 6.6 #L Monocytes # 0.3 Monocytes % 2.7 Neutrophils # 8.6 H Neutrophils % 81.9 H Nucleated Red Blood Cells # 0.0 Nucleated Red Blood Cells % 0.0 Platelet Count 159 # Potassium Level 3.4 L Prothrombin Time 15.6 #H Prothrombin Time Ratio 1.2 Red Blood Count 3.19 #L Red Cell Distribution Width 12.8 Sodium Level 144 White Blood Count 10.6 # Mixed Venous Bld Carboxyhemoglobin 0.3 Mixed Venous Blood Methemoglobin 0.6 Mixed Venous Blood O2 Saturation 65.6 Mixed Venous Blood Oxyhemoglobin 65.0 Mixed Venous Blood PO2 36.3 Mixed Venous Blood Total Hemoglobin 10.0 Test 10/01/16 15:58 10/01/16 17:05 10/01/16 17:37 10/01/16 18:40 Bedside Glucose 96 136 134 114 Potassium Level 3.5 Test 10/01/16 19:59 10/01/16 21:05 10/01/16 21:56 10/01/16 23:00 Bedside Glucose 185 196 177 162 Test 10/01/16 23:45 10/02/16 00:00 10/02/16 00:55 10/02/16 01:54 Hematocrit 30.6 L Hemoglobin 10.5 L Magnesium Level 2.4 Potassium Level 4.1 Bedside Glucose 133 138 145 Test 10/02/16 03:00 10/02/16 03:52 10/02/16 04:00 10/02/16 05:00 Bedside Glucose 134 111 119 Activated Partial Thromboplast Time 29.6 Anion Gap 17 H Basophils # 0.0 Basophils % 0.0 Blood Urea Nitrogen 20 Calcium Level 9.3 Carbon Dioxide Level 26 Chloride Level 108 Creatinine 0.93 Eosinophils # 0.0 Eosinophils % 0.0 Glucose Level 111 Hematocrit 31.2 L Hemoglobin 10.7 L INR International Normalized Ratio 1.08 Lymphocytes # 0.2 L Lymphocytes % 1.4 L Magnesium Level 2.5 Mean Corpuscular Hemoglobin 31.2 Mean Corpuscular Hemoglobin Concent 34.4 Mean Corpuscular Volume 90.7 Mean Platelet Volume 7.9 Monocytes # 1.1 H Monocytes % 10.1 Neutrophils # 9.9 H Neutrophils % 88.5 H Nucleated Red Blood Cells # 0.0 Nucleated Red Blood Cells % 0.0 Platelet Count 174 Potassium Level 4.4 Prothrombin Time 14.0 Prothrombin Time Ratio 1.1 Red Blood Count 3.44 L Red Cell Distribution Width 13.9 Sodium Level 147 H White Blood Count 11.1 H Arterial Blood HCO3 24.0 Arterial Blood Base Excess 0.8 Arterial Blood Oxygen Saturation 97.5 Jack Test N/A Arterial Blood Gas Puncture Site A-Line Arterial Blood Carboxyhemoglobin 0.5 Arterial Blood Date Drawn 10/02/2016 5:18:16 AM Arterial Blood Methemoglobin 0.2 Arterial Blood pCO2 (Temp correct) 34.5 L Arterial Blood pH (Temp corrected) 7.461 H Arterial Blood pO2 (Temp corrected) 99.0 Blood Gas A-a O2 Differential 74.4 H Blood Gas Actual Respiration Rate 30 Blood Gas Low PEEP Setting 5.0 Blood Gas Modality VENT - CPAP Blood Gas Notified Time 10/02/2016 5:47:16 AM Blood Gas Notified Whom RTR Blood Gas Pressure Support 10 Blood Gas Specimen Source Blood arterial Blood Gas Temperature 37.0 FiO2 30.0 Oxyhemoglobin Percent 96.8 Total Hemoglobin 15.8 Test 10/02/16 06:13 10/02/16 06:59 10/02/16 08:52 10/02/16 10:45 Bedside Glucose 137 134 95 117 Medications Medications Current Medications Morphine Sulfate (morphine) 2 mg Q2H PRN IV FOR NON CARDIAC PAIN (4-10) Last administered on 10/02/16 08:07; Admin Dose 2 MG; Start 09/27/16 at 10:30 Al Hydrox/Mg Hydrox/Simethicone (Mag-Al Plus) 30 ml Q4H PRN PO GASTROINTESTINAL UPSET; Start 09/27/16 at 10:30 Enalapril Maleate 20 mg 20 mg DAILY PO Last administered on 10/02/16 09:29; Admin Dose 20 MG; Start 09/28/16 at 09:00 Sodium Chloride (1/2 NS) 1,000 ml @ 50 mls/hr Q20H IV Last administered on 10/01 02:17; Admin Dose 50 MLS/HR; Start 09/27/16 at 18:05 Ondansetron HCl (Zofran Inj) 4 mg Q6H PRN IV NAUSEA AND/OR VOMITING; Start 09/27 at 18:30 Acetaminophen (Tylenol Tab) 650 mg Q6H PRN PO PAIN LEVEL 1-3 OR FEVER; Start at 18:30 Acetaminophen (Tylenol Supp) 650 mg Q6H PRN [place] PAIN LEVEL 1-3 OR FEVER Last administered on 10/02/16 00:08; Admin Dose 650 MG; Start 09/27/16 at 18:30 Acetaminophen/ Hydrocodone Bitart ([place] (5/325)) 1 tab Q6H PRN PO MODERATE PAIN LEVEL 4-6; Start 09/27/16 at 18:30 Hydromorphone HCl (Dilaudid) 0.5 mg Q4H PRN IV SEVERE PAIN LEVEL 7-10 Last administered on 10/02/16 09:14; Admin Dose 0.5 MG; Start 09/27/16 at 18:30 Docusate Sodium (Colace) 100 mg Q12H PRN PO CONSTIPATION; Start 09/27/16 at 18: 30 Magnesium Hydroxide (Milk Of Mag) 30 ml DAILY PRN PO CONSTIPATION; Start at 18:30 Bisacodyl (Dulcolax) 5 mg DAILY PRN PO CONSTIPATION; Start 09/27/16 at 18:30 Enoxaparin Sodium (Lovenox) 40 mg DAILY SC Last administered on 09/30/16 08:35 ; Admin Dose 40 MG; Start 09/28/16 at 09:00; Status Future Hold Hydralazine HCl 25 mg 25 mg TID PO Last administered on 10/02/16 09:28; Admin Dose 25 MG; Start 09/28/16 at 21:00 Potassium Chloride/Calcium Chloride/Dextrose/ Sodium Chloride (KCl/Ca Chloride/ D5-1/4ns) 1,030 ml @ 60 mls/hr [id number] IV Last administered on 10/02/16 09:28 ; Admin Dose 60 MLS/HR; Start 10/01/16 at 14:00 Diagnostic Test (Pha) (Accucheck) 1 ea Q1H XX Last administered on 10/02/16 10: 38; Admin Dose 1 EA; Start 10/01/16 at 15:30 Dextrose (D50w Syringe) 25 ml Q15M PRN IV Till BS 80 mg/dL or above x2; Start 10/01/16 at 15:30 Dextrose 50 ml 50 ml Q15M PRN IV Till BS 80 mg/dL or above x2; Start 10/01/16 at 15:30 Nitroglycerin/ Dextrose 250 ml @ 3.33 mls/hr TITRATE IV Last administered on 17:09; Admin Dose 3.33 MLS/HR; Start 10/01/16 at 16:30 Dopamine HCl/ Dextrose 250 ml @ 5.498 mls/ hr TITRATE PRN IV Hypotension; Start 10/01/16 at 17:30 Milrinone Lactate 100 ml @ 8.246 mls/ hr TITRATE PRN IV hypotension Last administered on 10/01/16 19:24; Admin Dose 3.83 MLS/HR; Start 10/01/16 at 17:30 Cefazolin Sodium (Ancef 1 Gm/50 ml (Pmx)) 50 ml @ 100 mls/hr Q8 IVPB Last administered on 10/02/16 05:02; Admin Dose 100 MLS/HR; Start 10/01/16 at 22:00; Stop 10/02/16 at 14:29 Aspirin (Aspirin) 300 mg DAILY [place] Last administered on 10/02/16 09:29; Admin Dose 300 MG; Start 10/02/16 at 09:00 Pantoprazole (Protonix Iv) 40 mg DAILY@06 IV Last administered on 10/02/16 05: 05; Admin Dose 40 MG; Start 10/02/16 at 06:00 NEDA LERNER MD Oct 02, 2016 12:14
--- NOTE | 2016-10-02 14:54 | PN ---
Date/Time of Note Date/Time of Note DATE: 10/02/16 TIME: 14:53 Assessment/Plan VTE Prophylaxis VTE Prophylaxis Intervention: other Lines/Catheters [facility] Cord[facility] Urinary Cath still in place: Yes Reason Cath still needed: other (indicate) Assessment/Plan Chief Complaint/Hosp Course A/P DM HTN S/P CATH POSITIVE FOR CAD PVD 1. Coronary artery bypass grafting x6, left internal mammary artery to left anterior descending, saphenous vein graft to the first diagonal branch of the left anterior descending, saphenous vein graft to the second diagonal branch of the LAD in a wide fashion. 2. Saphenous vein graft to the obtuse marginal branch of the circumflex. 3. Saphenous vein graft to the posterior descending artery. 4. Saphenous vein graft to the posterolateral artery in an open fashion at the bifurcation. 5. Right coronary endarterectomy. 6. Right coronary endarterectomy. 7. Left anterior descending endarterectomy. 8. Saphenous vein harvest from the left lower extremity. 9. Thymectomy PLANper surgery ck labs Problems: Subjective 24 Hr Interval Summary Respiratory: shortness of breath (+) Cardiovascular: no complaints Exam/Review of Systems Vital Signs Vitals Vital Signs Date Time Temp Pulse Resp B/P Pulse Ox O2 Delivery O2 Flow Rate FiO2 10/02/16 14:00 108 22 108/75 97 Nasal Cannula 10/02/16 12:00 99.0 10/02/16 08:00 4.0 10/02/16 05:15 30 Intake and Output 10/01/16 10/01/16 10/02/16 15:00 23:00 07:00 Intake Total 2908 ml 1179 ml 1130 ml Output Total 2349 ml 1675 ml 353 ml Balance 559 ml -496 ml 777 ml Exam Respiratory: clear to auscultation, diminished breath sounds Cardiovascular: regular rate and rhythm Gastrointestinal: soft Musculoskeletal: nl extremities to inspection Extremities: normal pulses Results Result Diagram: 10/02/16 1345 10/02/16 1345 Results 24 hrs Laboratory Tests Test 10/01/16 15:11 10/01/16 15:58 10/01/16 17:05 10/01/16 17:37 Jack Test N/A Arterial Blood Date Drawn 10/01/2016 3:08:48 PM Arterial Blood Gas Puncture Site PUL ART LINE Bedside Glucose 94 96 136 134 Blood Gas Actual Respiration Rate 14 Blood Gas Low PEEP Setting 5.0 Blood Gas Modality VENT - AC Blood Gas Notified Time 10/01/2016 3:19:46 PM Blood Gas Notified Whom JLD Blood Gas Respiration Rate 14.0 Blood Gas Specimen Source BLMV Blood Gas Temperature 37.0 Blood Gas Tidal Volume 550.0 FiO2 70.0 Mixed Venous Bld Carboxyhemoglobin 0.3 Mixed Venous Blood Methemoglobin 0.6 Mixed Venous Blood O2 Saturation 65.6 Mixed Venous Blood Oxyhemoglobin 65.0 Mixed Venous Blood PO2 36.3 Mixed Venous Blood Total Hemoglobin 10.0 Test 10/01/16 18:40 10/01/16 19:59 10/01/16 21:05 10/01/16 21:56 Bedside Glucose 114 185 196 177 Potassium Level 3.5 Test 10/01/16 23:00 10/01/16 23:45 10/02/16 00:00 10/02/16 00:55 Bedside Glucose 162 133 138 Hematocrit 30.6 L Hemoglobin 10.5 L Magnesium Level 2.4 Potassium Level 4.1 Test 10/02/16 01:54 10/02/16 03:00 10/02/16 03:52 10/02/16 04:00 Bedside Glucose 145 134 111 Activated Partial Thromboplast Time 29.6 Anion Gap 17 H Basophils # 0.0 Basophils % 0.0 Blood Urea Nitrogen 20 Calcium Level 9.3 Carbon Dioxide Level 26 Chloride Level 108 Creatinine 0.93 Eosinophils # 0.0 Eosinophils % 0.0 Glucose Level 111 Hematocrit 31.2 L Hemoglobin 10.7 L INR International Normalized Ratio 1.08 Lymphocytes # 0.2 L Lymphocytes % 1.4 L Magnesium Level 2.5 Mean Corpuscular Hemoglobin 31.2 Mean Corpuscular Hemoglobin Concent 34.4 Mean Corpuscular Volume 90.7 Mean Platelet Volume 7.9 Monocytes # 1.1 H Monocytes % 10.1 Neutrophils # 9.9 H Neutrophils % 88.5 H Nucleated Red Blood Cells # 0.0 Nucleated Red Blood Cells % 0.0 Platelet Count 174 Potassium Level 4.4 Prothrombin Time 14.0 Prothrombin Time Ratio 1.1 Red Blood Count 3.44 L Red Cell Distribution Width 13.9 Sodium Level 147 H White Blood Count 11.1 H Test 10/02/16 05:00 10/02/16 06:13 10/02/16 06:59 10/02/16 08:52 Arterial Blood HCO3 24.0 Arterial Blood Base Excess 0.8 Arterial Blood Oxygen Saturation 97.5 Jack Test N/A Arterial Blood Gas Puncture Site A-Line Arterial Blood Carboxyhemoglobin 0.5 Arterial Blood Date Drawn 10/02/2016 5:18:16 AM Arterial Blood Methemoglobin 0.2 Arterial Blood pCO2 (Temp correct) 34.5 L Arterial Blood pH (Temp corrected) 7.461 H Arterial Blood pO2 (Temp corrected) 99.0 Bedside Glucose 119 137 134 95 Blood Gas A-a O2 Differential 74.4 H Blood Gas Actual Respiration Rate 30 Blood Gas Low PEEP Setting 5.0 Blood Gas Modality VENT - CPAP Blood Gas Notified Time 10/02/2016 5:47:16 AM Blood Gas Notified Whom RTR Blood Gas Pressure Support 10 Blood Gas Specimen Source Blood arterial Blood Gas Temperature 37.0 FiO2 30.0 Oxyhemoglobin Percent 96.8 Total Hemoglobin 15.8 Test 10/02/16 10:45 10/02/16 12:26 10/02/16 13:45 10/02/16 14:27 Bedside Glucose 117 111 115 Hematocrit 30.8 L Potassium Level 4.6 Medications Medications Current Medications Morphine Sulfate (morphine) 2 mg Q2H PRN IV FOR NON CARDIAC PAIN (4-10) Last administered on 10/02/16 08:07; Admin Dose 2 MG; Start 09/27/16 at 10:30 Al Hydrox/Mg Hydrox/Simethicone (Mag-Al Plus) 30 ml Q4H PRN PO GASTROINTESTINAL UPSET; Start 09/27/16 at 10:30 Enalapril Maleate 20 mg 20 mg DAILY PO Last administered on 10/02/16 09:29; Admin Dose 20 MG; Start 09/28/16 at 09:00 Sodium Chloride (1/2 NS) 1,000 ml @ 50 mls/hr Q20H IV Last administered on 10/01 02:17; Admin Dose 50 MLS/HR; Start 09/27/16 at 18:05 Ondansetron HCl (Zofran Inj) 4 mg Q6H PRN IV NAUSEA AND/OR VOMITING; Start 09/27 at 18:30 Acetaminophen (Tylenol Tab) 650 mg Q6H PRN PO PAIN LEVEL 1-3 OR FEVER; Start at 18:30 Acetaminophen (Tylenol Supp) 650 mg Q6H PRN [place] PAIN LEVEL 1-3 OR FEVER Last administered on 10/02/16 00:08; Admin Dose 650 MG; Start 09/27/16 at 18:30 Acetaminophen/ Hydrocodone Bitart ([place] (5/325)) 1 tab Q6H PRN PO MODERATE PAIN LEVEL 4-6; Start 09/27/16 at 18:30 Hydromorphone HCl (Dilaudid) 0.5 mg Q4H PRN IV SEVERE PAIN LEVEL 7-10 Last administered on 10/02/16 09:14; Admin Dose 0.5 MG; Start 09/27/16 at 18:30 Docusate Sodium (Colace) 100 mg Q12H PRN PO CONSTIPATION; Start 09/27/16 at 18: 30 Magnesium Hydroxide (Milk Of Mag) 30 ml DAILY PRN PO CONSTIPATION; Start at 18:30 Bisacodyl (Dulcolax) 5 mg DAILY PRN PO CONSTIPATION; Start 09/27/16 at 18:30 Enoxaparin Sodium (Lovenox) 40 mg DAILY SC Last administered on 09/30/16 08:35 ; Admin Dose 40 MG; Start 09/28/16 at 09:00; Status Future Hold Hydralazine HCl 25 mg 25 mg TID PO Last administered on 10/02/16 13:26; Admin Dose 25 MG; Start 09/28/16 at 21:00 Potassium Chloride/Calcium Chloride/Dextrose/ Sodium Chloride (KCl/Ca Chloride/ D5-1/4ns) 1,030 ml @ 60 mls/hr [id number] IV Last administered on 10/02/16 09:28 ; Admin Dose 60 MLS/HR; Start 10/01/16 at 14:00 Diagnostic Test (Pha) (Accucheck) 1 ea Q1H XX Last administered on 10/02/16 14: 36; Admin Dose 1 EA; Start 10/01/16 at 15:30 Dextrose (D50w Syringe) 25 ml Q15M PRN IV Till BS 80 mg/dL or above x2; Start 10/01/16 at 15:30 Dextrose 50 ml 50 ml Q15M PRN IV Till BS 80 mg/dL or above x2; Start 10/01/16 at 15:30 Nitroglycerin/ Dextrose 250 ml @ 3.33 mls/hr TITRATE IV Last administered on 17:09; Admin Dose 3.33 MLS/HR; Start 10/01/16 at 16:30 Dopamine HCl/ Dextrose 250 ml @ 5.498 mls/ hr TITRATE PRN IV Hypotension; Start 10/01/16 at 17:30 Milrinone Lactate (Primacor) 100 ml @ 8.246 mls/ hr TITRATE PRN IV hypotension Last administered on 10/01/16 19:24; Admin Dose 3.83 MLS/HR; Start 10/01/16 at 17:30 Aspirin (Aspirin) 300 mg DAILY [place] Last administered on 10/02/16 09:29; Admin Dose 300 MG; Start 10/02/16 at 09:00 Pantoprazole (Protonix Iv) 40 mg DAILY@06 IV Last administered on 10/02/16 05: 05; Admin Dose 40 MG; Start 10/02/16 at 06:00 JERICHO NINA MD Oct 02, 2016 14:54
--- NOTE | 2016-10-02 15:12 | PN ---
Date/Time of Note Date/Time of Note DATE: 10/02/16 TIME: 15:11 Assessment/Plan Lines/Catheters IV Catheter Type (from Nrsg): Cordis Bautista in Place (from Nrsg): Yes Assessment/Plan Chief Complaint/Hosp Course IMPRESSION: 1. Coronary artery disease. 2. Peripheral vascular disease. 3. Left toe ulcer. SP CABG will DC SG cath , A line mobilize Problems: Subjective 24 Hr Interval Summary Constitutional: improved Pain Control: mild Exam/Review of Systems Vital Signs Vitals Vital Signs Date Time Temp Pulse Resp B/P Pulse Ox O2 Delivery O2 Flow Rate FiO2 10/02/16 14:00 108 22 108/75 97 Nasal Cannula 10/02/16 12:00 99.0 10/02/16 08:00 4.0 10/02/16 05:15 30 Intake and Output 10/01/16 10/01/16 10/02/16 15:00 23:00 07:00 Intake Total 2908 ml 1179 ml 1130 ml Output Total 2349 ml 1675 ml 353 ml Balance 559 ml -496 ml 777 ml Exam ENMT: mucosa pink and moist, nl external ears & nose, nl lips & teeth, nl nasal mucosa & septum Neck: non-tender, supple Respiratory: clear to auscultation, normal air movement Cardiovascular: nl pulses, regular rate and rhythm Results Result Diagram: 10/02/16 1345 10/02/16 1345 CONSTANZA AWAD MD Oct 02, 2016 15:12
[2016-10-02] MEDS: SOD CHLORIDE 0.45% 1,000 ML IV SCH (17:44)
[2016-10-02] MEDS: INSULIN REGULAR, HUMAN 100 UNIT in SOD CHLORIDE 0.9% 99 ML IV SCH ×2 (18:38)
[2016-10-03] VITALS (36 sets, daily range): BP systolic 98–161; BP diastolic 69–141; PULSE 90–118; RESP 16–35
[2016-10-03] MEDS: POTASSIUM CHLORIDE 40 MEQ, CALCIUM CHLORIDE 10% 1 GM in DEXTROSE 5%-0.225% NACL 1,000 ML IV SCH ×2 (00:20→17:30)
[2016-10-03] MEDS: ACCUCHECK XX SCH ×23 (00:30→23:30)
[2016-10-03] MEDS: morphine 2 MG INJ IV PRN ×5 (04:43→21:38)
[2016-10-03 04:47] LABS: BASOPHILS % 0.2 % (0.0-2.0); HEMATOCRIT 31.2 % (42.0-52.0); HEMOGLOBIN 10.6 g/dl (14.0-18.0); LYMPHOCYTES # 1.4 10^3/ul (0.8-2.9); LYMPHOCYTES % 9.8 % (15.0-51.0); MEAN CORPUSCULAR HEMOGLOBIN 31.4 pg (29.0-33.0); MEAN CORPUSCULAR HGB CONC 34.1 g/dl (32.0-37.0); MEAN CORPUSCULAR VOLUME 92.1 fl (82.0-101.0); MEAN PLATELET VOLUME 8.4 fl (7.4-10.4); MONOCYTE # 1.3 10^3/ul (0.3-0.9); MONOCYTES % 9.2 % (0.0-11.0); NEUTROPHIL # 11.5 10^3/ul (1.6-7.5); NEUTROPHILS % 80.8 % (39.0-77.0); PLATELET COUNT 134 10^3/UL (140-440); RED BLOOD COUNT 3.39 10^6/ul (4.70-6.10); RED CELL DISTRIBUTION WIDTH 14.1 % (11.5-14.5); UNCORRECTED WBC 14.3 10^3/ul (4.8-10.8); WHITE BLOOD COUNT 14.3 10^3/ul (4.8-10.8)
[2016-10-03 05:05] LABS: CONDITION 1
[2016-10-03 05:18] LABS: ALBUMIN 3.7 g/dl (3.3-4.9)
[2016-10-03 05:19] LABS: POTASSIUM 4.9 mmol/L (3.5-5.1)
[2016-10-03 05:21] LABS: ALBUMIN/GLOBULIN RATIO 1.32; BILIRUBIN,INDIRECT 0.9 mg/dl (0-1.1); BILIRUBIN,TOTAL 0.9 mg/dl (0.2-1.3); CREATININE 0.93 mg/dl (0.61-1.24); TOTAL PROTEIN 6.5 g/dl (6.1-8.1)
[2016-10-03] MEDS: PANTOPRAZOLE 40 MG INJ IV SCH (06:00)
[2016-10-03] MEDS: ENALAPRIL 20 MG TAB PO SCH (08:43)
[2016-10-03] MEDS: ASPIRIN 300 MG SUPP PR SCH (09:00)
[2016-10-03] MEDS ORDERED: ASPIRIN (EC) 81 MG TAB PO SCH (10:30)
[2016-10-03] MEDS: LORAZEPAM 1 MG TAB PO PRN ×2 (10:30→23:06)
--- NOTE | 2016-10-03 10:58 | CONS ---
Date/Time of Note Date/Time of Note DATE: 10/03/16 TIME: 10:54 Assessment/Plan Assessment/Plan Chief Complaint/Hosp Course Imp: 1.Cad s/p Cabg x 6 vesels POD #2 2.PAD with nonhealing toe ulcer 3.HTN 4.DM 5. Dyslipidemia Recc: -Tele -continue asa -Continue ACEI/hydralazine -start BB -Follow volume status closely -Routine post-op care Problems: Consultation Date/Type/Reason Admit Date/Time Sep 27, 2016 at 10:27 Initial Consult Date 09/27/2016 Type of Consultation: Cardiology Reason for Consultation cad s/p cabg Referring Provider: JERICHO NINA MD Exam/Review of Systems Vital Signs Vitals Vital Signs Date Time Temp Pulse Resp B/P Pulse Ox O2 Delivery O2 Flow Rate FiO2 10/03/16 10:00 106 28 141/103 96 Nasal Cannula 4.0 10/03/16 08:00 98.6 10/02/16 05:15 30 Intake and Output 10/02/16 10/02/16 10/03/16 15:00 23:00 07:00 Intake Total 1181.0 ml 546 ml 111.5 ml Output Total 539 ml 400 ml 315 ml Balance 642.0 ml 146 ml -203.5 ml Exam Review of Systems: CONSTITUTIONAL: No fevers, chills. PULMONARY: No sob CARDIOVASCULAR: No chest pain/palpitations GASTROINTESTINAL: No nausea/vomiting. GENITOURINARY: No hematuria/dysuria. MUSCULOSKELETAL: No myagias/arthalgias. PSYCHIATRIC: The patient denies depression. NEUROLOGIC: No weakness Constitutional: alert Psych: no complaints Head: normocephalic ENMT: mucosa pink and moist Neck: jvd, supple Respiratory: diminished breath sounds Cardiovascular: other ([place] sternotomy c/d/i), regular rate and rhythm Gastrointestinal: non-tender, soft Musculoskeletal: muscle tone (normal) Extremities: edema (Normal ) Neurological: other (No focal deficits) Results Result Diagram: 10/03/165 10/03/165 Results 24 hrs Laboratory Tests Test 10/02/16 12:26 10/02/16 13:45 10/02/16 14:27 10/02/16 16:29 Bedside Glucose 111 115 115 Hematocrit 30.8 L Potassium Level 4.6 Test 10/02/16 18:35 10/02/16 20:32 10/02/16 20:37 10/02/16 22:23 Bedside Glucose 117 92 98 Potassium Level 4.4 Test 10/03/16 00:05 10/03/16 01:57 10/03/16 04:03 10/03/16 04:05 Bedside Glucose 124 116 108 Alanine Aminotransferase (ALT/SGPT) 285 H Albumin 3.7 Albumin/Globulin Ratio 1.32 Alkaline Phosphatase 77 Anion Gap 18 H Aspartate Amino Transf (AST/SGOT) 440 H Basophils # 0.0 Basophils % 0.2 Blood Urea Nitrogen 28 H Calcium Level 9.0 Carbon Dioxide Level 22 Chloride Level 101 Creatinine 0.93 Direct Bilirubin 0.00 Eosinophils # 0.0 Eosinophils % 0.0 Globulin 2.80 Glucose Level 110 Hematocrit 31.2 L Hemoglobin 10.6 L Indirect Bilirubin 0.9 Lymphocytes # 1.4 Lymphocytes % 9.8 L Mean Corpuscular Hemoglobin 31.4 Mean Corpuscular Hemoglobin Concent 34.1 Mean Corpuscular Volume 92.1 Mean Platelet Volume 8.4 Monocytes # 1.3 H Monocytes % 9.2 Neutrophils # 11.5 H Neutrophils % 80.8 H Nucleated Red Blood Cells # 0.0 Nucleated Red Blood Cells % 0.0 Platelet Count 134 #L Potassium Level 4.9 Red Blood Count 3.39 L Red Cell Distribution Width 14.1 Sodium Level 136 Total Bilirubin 0.9 Total Protein 6.5 White Blood Count 14.3 #H Test 10/03/16 06:05 10/03/16 07:41 10/03/16 09:53 Bedside Glucose 86 103 117 Medications Medications Current Medications Morphine Sulfate (morphine) 2 mg Q2H PRN IV FOR NON CARDIAC PAIN (4-10) Last administered on 10/03/16 08:42; Admin Dose 2 MG; Start 09/27/16 at 10:30 Al Hydrox/Mg Hydrox/Simethicone (Mag-Al Plus) 30 ml Q4H PRN PO GASTROINTESTINAL UPSET; Start 09/27/16 at 10:30 Enalapril Maleate 20 mg 20 mg DAILY PO Last administered on 10/03/16 08:43; Admin Dose 20 MG; Start 09/28/16 at 09:00 Sodium Chloride (1/2 NS) 1,000 ml @ 50 mls/hr Q20H IV Last administered on 10/01 02:17; Admin Dose 50 MLS/HR; Start 09/27/16 at 18:05 Ondansetron HCl (Zofran Inj) 4 mg Q6H PRN IV NAUSEA AND/OR VOMITING; Start 09/27 at 18:30 Acetaminophen (Tylenol Tab) 650 mg Q6H PRN PO PAIN LEVEL 1-3 OR FEVER; Start at 18:30 Acetaminophen (Tylenol Supp) 650 mg Q6H PRN [place] PAIN LEVEL 1-3 OR FEVER Last administered on 10/02/16 00:08; Admin Dose 650 MG; Start 09/27/16 at 18:30 Acetaminophen/ Hydrocodone Bitart ([place] (5/325)) 1 tab Q6H PRN PO MODERATE PAIN LEVEL 4-6; Start 09/27/16 at 18:30 Hydromorphone HCl (Dilaudid) 0.5 mg Q4H PRN IV SEVERE PAIN LEVEL 7-10 Last administered on 10/02/16 23:01; Admin Dose 0.5 MG; Start 09/27/16 at 18:30 Docusate Sodium (Colace) 100 mg Q12H PRN PO CONSTIPATION; Start 09/27/16 at 18: 30 Magnesium Hydroxide (Milk Of Mag) 30 ml DAILY PRN PO CONSTIPATION; Start at 18:30 Bisacodyl (Dulcolax) 5 mg DAILY PRN PO CONSTIPATION; Start 09/27/16 at 18:30 Enoxaparin Sodium (Lovenox) 40 mg DAILY SC Last administered on 09/30/16 08:35 ; Admin Dose 40 MG; Start 09/28/16 at 09:00; Status Future Hold Hydralazine HCl 25 mg 25 mg TID PO Last administered on 10/03/16 08:43; Admin Dose 25 MG; Start 09/28/16 at 21:00 Potassium Chloride/Calcium Chloride/Dextrose/ Sodium Chloride (KCl/Ca Chloride/ D5-1/4ns) 1,030 ml @ 60 mls/hr [id number] IV Last administered on 10/02/16 09:28 ; Admin Dose 60 MLS/HR; Start 10/01/16 at 14:00 Diagnostic Test (Pha) (Accucheck) 1 ea Q1H XX Last administered on 10/03/16 10: 00; Admin Dose 1 EA; Start 10/01/16 at 15:30 Dextrose (D50w Syringe) 25 ml Q15M PRN IV Till BS 80 mg/dL or above x2; Start 10/01/16 at 15:30 Dextrose 50 ml 50 ml Q15M PRN IV Till BS 80 mg/dL or above x2; Start 10/01/16 at 15:30 Nitroglycerin/ Dextrose 250 ml @ 3.33 mls/hr TITRATE IV Last administered on 17:09; Admin Dose 3.33 MLS/HR; Start 10/01/16 at 16:30 Dopamine HCl/ Dextrose 250 ml @ 5.498 mls/ hr TITRATE PRN IV Hypotension; Start 10/01/16 at 17:30 Milrinone Lactate (Primacor) 100 ml @ 8.246 mls/ hr TITRATE PRN IV hypotension Last administered on 10/01/16 19:24; Admin Dose 3.83 MLS/HR; Start 10/01/16 at 17:30 Aspirin (Aspirin) 300 mg DAILY [place] Last administered on 10/02/16 09:29; Admin Dose 300 MG; Start 10/02/16 at 09:00 Pantoprazole (Protonix Iv) 40 mg DAILY@06 IV Last administered on 10/02/16 05: 05; Admin Dose 40 MG; Start 10/02/16 at 06:00 Aspirin (Halfprin) 81 mg DAILY PO Last administered on 10/03/16 10:30; Admin Dose 81 MG; Start 10/03/16 at 10:30 Lorazepam (Ativan) 1 mg BID PRN PO ANXIETY Last administered on 10/03/16 10:30 ; Admin Dose 1 MG; Start 10/03/16 at 10:30 LORI CASTREJON Oct 03, 2016 10:58
[2016-10-03] MEDS: METOPROLOL 25 MG TAB PO SCH ×2 (13:00→20:44)
[2016-10-03] MEDS: SOD CHLORIDE 0.45% 1,000 ML IV SCH (14:05)
[2016-10-03 15:22] LABS: AADO2 Arterial 119.6 mmHg (7.0-24.0); Allen Test ACCEPTAB; Arterial COHb 0.3 % (0.0-3.0); Arterial Fraction of Oxyhgb 95.1 % (93.0-99.0); Arterial HCO3 17.2 mmol/L (22.0-26.0); Arterial MetHb 0.2 % (0.0-1.5); Arterial Total Hemglobin 12.1 g/dl (12.0-18.0); MODE NASAL CANNULA
--- NOTE | 2016-10-03 17:57 | PN ---
Date/Time of Note Date/Time of Note DATE: 10/03/16 TIME: 17:55 Assessment/Plan VTE Prophylaxis VTE Prophylaxis Intervention: other Lines/Catheters IV [facility] Type [facility]from [facility] Cordis Urinary Cath still in place: Yes Reason Cath still needed: other (indicate) Assessment/Plan Chief Complaint/Hosp Course A/P DM HTN S/P CATH POSITIVE FOR CAD PVD 1. Coronary artery bypass grafting x6, left internal mammary artery to left anterior descending, saphenous vein graft to the first diagonal branch of the left anterior descending, saphenous vein graft to the second diagonal branch of the LAD in a wide fashion. 2. Saphenous vein graft to the obtuse marginal branch of the circumflex. 3. Saphenous vein graft to the posterior descending artery. 4. Saphenous vein graft to the posterolateral artery in an open fashion at the bifurcation. 5. Right coronary endarterectomy. 6. Right coronary endarterectomy. 7. Left anterior descending endarterectomy. 8. Saphenous vein harvest from the left lower extremity. 9. Thymectomy 10 leucocytosis PLANper surgery ck labs ua antibiotic Problems: Subjective 24 Hr Interval Summary Respiratory: No pleuritic pain, No shortness of breath Cardiovascular: no complaints Exam/Review of Systems Vital Signs Vitals Vital Signs Date Time Temp Pulse Resp B/P Pulse Ox O2 Delivery O2 Flow Rate FiO2 10/03/16 16:00 94 10/03/16 16:00 98.1 22 102/73 100 Nasal Cannula 10/03/16 10:00 4.0 10/02/16 05:15 30 Intake and Output 10/02/16 10/02/16 10/03/16 15:00 23:00 07:00 Intake Total 1181.0 ml 546 ml 111.5 ml Output Total 539 ml 400 ml 315 ml Balance 642.0 ml 146 ml -203.5 ml Exam Neck: supple Respiratory: diminished breath sounds Cardiovascular: regular rate and rhythm Gastrointestinal: soft Genitourinary - Male: No CVA tenderness Extremities: No edema 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, nl mental status Results Result Diagram: 10/03/165 10/03/165 Results 24 hrs Laboratory Tests Test 10/02/16 18:35 10/02/16 20:32 10/02/16 20:37 10/02/16 22:23 Bedside Glucose 117 92 98 Potassium Level 4.4 Test 10/03/16 00:05 10/03/16 01:57 10/03/16 04:03 10/03/16 04:05 Bedside Glucose 124 116 108 Alanine Aminotransferase (ALT/SGPT) 285 H Albumin 3.7 Albumin/Globulin Ratio 1.32 Alkaline Phosphatase 77 Anion Gap 18 H Aspartate Amino Transf (AST/SGOT) 440 H Basophils # 0.0 Basophils % 0.2 Blood Urea Nitrogen 28 H Calcium Level 9.0 Carbon Dioxide Level 22 Chloride Level 101 Creatinine 0.93 Direct Bilirubin 0.00 Eosinophils # 0.0 Eosinophils % 0.0 Globulin 2.80 Glucose Level 110 Hematocrit 31.2 L Hemoglobin 10.6 L Indirect Bilirubin 0.9 Lymphocytes # 1.4 Lymphocytes % 9.8 L Mean Corpuscular Hemoglobin 31.4 Mean Corpuscular Hemoglobin Concent 34.1 Mean Corpuscular Volume 92.1 Mean Platelet Volume 8.4 Monocytes # 1.3 H Monocytes % 9.2 Neutrophils # 11.5 H Neutrophils % 80.8 H Nucleated Red Blood Cells # 0.0 Nucleated Red Blood Cells % 0.0 Platelet Count 134 #L Potassium Level 4.9 Red Blood Count 3.39 L Red Cell Distribution Width 14.1 Sodium Level 136 Total Bilirubin 0.9 Total Protein 6.5 White Blood Count 14.3 #H Test 10/03/16 06:05 10/03/16 07:41 10/03/16 09:53 10/03/16 12:30 Bedside Glucose 86 103 117 169 Test 10/03/16 14:30 10/03/16 14:40 10/03/16 16:31 Bedside Glucose 163 135 Arterial Blood HCO3 17.2 L Arterial Blood Base Excess -6.0 L Arterial Blood Oxygen Saturation 95.6 Jack Test ACCEPTAB Arterial Blood Gas Puncture Site Right Radial Arterial Blood Carboxyhemoglobin 0.3 Arterial Blood Date Drawn 10/03/2016 3:10:44 PM Arterial Blood Methemoglobin 0.2 Arterial Blood pCO2 (Temp correct) 27.5 L Arterial Blood pH (Temp corrected) 7.415 Arterial Blood pO2 (Temp corrected) 83.6 Blood Gas A-a O2 Differential 119.6 H Blood Gas Modality NASAL CANNULA Blood Gas Notified Time 10/03/2016 3:22:13 PM Blood Gas Notified Whom JLD Blood Gas Specimen Source Blood arterial Blood Gas Temperature 37.0 FiO2 33.0 Oxyhemoglobin Percent 95.1 Total Hemoglobin 12.1 Medications Medications Current Medications Morphine Sulfate (morphine) 2 mg Q2H PRN IV FOR NON CARDIAC PAIN (4-10) Last administered on 10/03/16 16:34; Admin Dose 2 MG; Start 09/27/16 at 10:30 Al Hydrox/Mg Hydrox/Simethicone (Mag-Al Plus) 30 ml Q4H PRN PO GASTROINTESTINAL UPSET; Start 09/27/16 at 10:30 Enalapril Maleate 20 mg 20 mg DAILY PO Last administered on 10/03/16 08:43; Admin Dose 20 MG; Start 09/28/16 at 09:00 Sodium Chloride (1/2 NS) 1,000 ml @ 50 mls/hr Q20H IV Last administered on 10/01 02:17; Admin Dose 50 MLS/HR; Start 09/27/16 at 18:05 Ondansetron HCl (Zofran Inj) 4 mg Q6H PRN IV NAUSEA AND/OR VOMITING; Start 09/27 at 18:30 Acetaminophen (Tylenol Tab) 650 mg Q6H PRN PO PAIN LEVEL 1-3 OR FEVER; Start at 18:30 Acetaminophen (Tylenol Supp) 650 mg Q6H PRN NM PAIN LEVEL 1-3 OR FEVER Last administered on 10/02/16 00:08; Admin Dose 650 MG; Start 09/27/16 at 18:30 Acetaminophen/ Hydrocodone Bitart ([place] (5/325)) 1 tab Q6H PRN PO MODERATE PAIN LEVEL 4-6; Start 09/27/16 at 18:30 Hydromorphone HCl (Dilaudid) 0.5 mg Q4H PRN IV SEVERE PAIN LEVEL 7-10 Last administered on 10/02/16 23:01; Admin Dose 0.5 MG; Start 09/27/16 at 18:30 Docusate Sodium (Colace) 100 mg Q12H PRN PO CONSTIPATION; Start 09/27/16 at 18: 30 Magnesium Hydroxide (Milk Of Mag) 30 ml DAILY PRN PO CONSTIPATION; Start at 18:30 Bisacodyl (Dulcolax) 5 mg DAILY PRN PO CONSTIPATION; Start 09/27/16 at 18:30 Enoxaparin Sodium (Lovenox) 40 mg DAILY SC Last administered on 09/30/16 08:35 ; Admin Dose 40 MG; Start 09/28/16 at 09:00; Status Future Hold Hydralazine HCl 25 mg 25 mg TID PO Last administered on 10/03/16 13:01; Admin Dose 25 MG; Start 09/28/16 at 21:00 Potassium Chloride/Calcium Chloride/Dextrose/ Sodium Chloride (KCl/Ca Chloride/ D5-1/4ns) 1,030 ml @ 60 mls/hr [id number] IV Last administered on 10/02/16 09:28 ; Admin Dose 60 MLS/HR; Start 10/01/16 at 14:00 Diagnostic Test (Pha) (Accucheck) 1 ea Q1H XX Last administered on 10/03/16 16: 41; Admin Dose 1 EA; Start 10/01/16 at 15:30 Dextrose (D50w Syringe) 25 ml Q15M PRN IV Till BS 80 mg/dL or above x2; Start 10/01/16 at 15:30 Dextrose 50 ml 50 ml Q15M PRN IV Till BS 80 mg/dL or above x2; Start 10/01/16 at 15:30 Nitroglycerin/ Dextrose 250 ml @ 3.33 mls/hr TITRATE IV Last administered on 17:09; Admin Dose 3.33 MLS/HR; Start 10/01/16 at 16:30 Dopamine HCl/ Dextrose 250 ml @ 5.498 mls/ hr TITRATE PRN IV Hypotension; Start 10/01/16 at 17:30 Milrinone Lactate (Primacor) 100 ml @ 8.246 mls/ hr TITRATE PRN IV hypotension Last administered on 10/01/16 19:24; Admin Dose 3.83 MLS/HR; Start 10/01/16 at 17:30 Pantoprazole (Protonix Iv) 40 mg DAILY@06 IV Last administered on 10/02/16 05: 05; Admin Dose 40 MG; Start 10/02/16 at 06:00 Lorazepam (Ativan) 1 mg BID PRN PO ANXIETY Last administered on 10/03/16 10:30 ; Admin Dose 1 MG; Start 10/03/16 at 10:30 Metoprolol Tartrate (Lopressor) 25 mg BID PO Last administered on 10/03/16 13: 00; Admin Dose 25 MG; Start 10/03/16 at 11:00 Aspirin (Ecotrin) 325 mg DAILY PO ; Start 10/04/16 at 09:00 JERICHO NINA MD Oct 03, 2016 17:57
[2016-10-03] MEDS: LEVOFLOXACIN 500MG/D5W (PMX) 100 ML IVPB SCH (18:13)
--- NOTE | 2016-10-03 18:38 | PN ---
Date/Time of Note Date/Time of Note DATE: 10/03/16 TIME: 18:36 Assessment/Plan Lines/Catheters IV Catheter Type (from Nrsg): Cordis Bautista in Place (from Nrsg): Yes Assessment/Plan Chief Complaint/Hosp Course IMPRESSION: 1. Coronary artery disease. 2. Peripheral vascular disease. 3. Left toe ulcer. SP CABG Supp Tx mobilize Problems: Subjective 24 Hr Interval Summary Constitutional: improved Pain Control: mild Exam/Review of Systems Vital Signs Vitals Vital Signs Date Time Temp Pulse Resp B/P Pulse Ox O2 Delivery O2 Flow Rate FiO2 10/03/16 18:14 2.0 10/03/16 16:00 94 10/03/16 16:00 98.1 22 102/73 100 Nasal Cannula 10/02/16 05:15 30 Intake and Output 10/02/16 10/02/16 10/03/16 15:00 23:00 07:00 Intake Total 1181.0 ml 546 ml 111.5 ml Output Total 539 ml 400 ml 315 ml Balance 642.0 ml 146 ml -203.5 ml Exam Neck: non-tender, supple Respiratory: clear to auscultation, normal air movement Results Result Diagram: 10/03/16 0405 10/03/16 0405 CONSTANZA AWAD MD Oct 03, 2016 18:38
--- NOTE | 2016-10-03 18:46 | RADRPT ---
PROCEDURE: XR Chest AP portable CLINICAL INDICATION: New right WBC TECHNIQUE: An AP portable radiograph of the chest was submitted. COMPARISON: 10/02/2016 FINDINGS: Support Hardware: A new right jugular catheter is evident with the tip in the superior aspect of the superior vena cava. The patient has been extubated. The drainage tube again projects to the left ted ng base. Cardiovascular: There is again evidence of a previous midline sternotomy. The heart is normal in si ze. The aorta appears atherosclerotic and the pulmonary vasculature appears unremarkable. Lung Scott: Subsegmental atelectasis are again seen at the lung bases bilaterally greater on the le ft than the right. Pleural Spaces: The costophrenic angles are point as is the small pleural fluid accumulations cannot be excluded. Osseous Structures: The osseous structures appear intact. Soft Tissues: The stomach is no longer greatly distended with gas but there is mild gaseous distensi on of the colon. IMPRESSION: 1. A new right jugular central venous catheter is evident with the tip projecting to the superior a spect of the superior vena cava. The endotracheal tube is no longer present. A drainage tube again p rojects to the left lung base. 2. Again there is a previous midline sternotomy, the heart is normal in size and the aorta appears atherosclerotic. 3. No change to the subsegmental atelectasis involving the lung bases with suspicion of small bilat eral pleural fluid accumulations. 4. The stomach is no longer distended with gas. Physician Maame Date Time Electronically viewed and signed by Physician Maame on 10/03/2016 18:46 /
[2016-10-03 19:33] LABS: ADD UMIC YES; URINE BILIRUBIN (Dip) NEGATIVE (NEGATIVE); URINE BLOOD (Dip) 3+ (NEGATIVE); URINE COLOR LT. YELLOW (YELLOW); URINE GLUCOSE (Dip) NEGATIVE (NEGATIVE); URINE KETONES (Dip) 15 (NEGATIVE); URINE LEUKOCYTE ESTERASE (Dip) TRACE (NEGATIVE); URINE NITRITE (Dip) NEGATIVE (NEGATIVE); URINE TOTAL PROTEIN (Dip) 1+ (NEGATIVE); URINE UROBILINOGEN (Dip) 1.0 E.U./dL (0.1-1.0)
[2016-10-03 19:43] LABS: SQUAMOUS EPITHELIAL CELL,UR RARE
[2016-10-04] VITALS (25 sets, daily range): BP systolic 96–172; BP diastolic 57–125; PULSE 85–111; RESP 15–31
[2016-10-04] MEDS: ACCUCHECK XX SCH ×12 (00:31→11:30)
[2016-10-04] MEDS: morphine 2 MG INJ IV PRN (01:18)
[2016-10-04 01:56] LABS: AADO2 Arterial 115.5 mmHg (7.0-24.0); Allen Test ACCEPTAB; Arterial Base Excess -8.5 mmol/L (-3.0-3); Arterial COHb 0.3 % (0.0-3.0); Arterial Fraction of Oxyhgb 94.1 % (93.0-99.0); Arterial HCO3 16.1 mmol/L (22.0-26.0); Arterial MetHb 0.2 % (0.0-1.5); Arterial Total Hemglobin 12.4 g/dl (12.0-18.0); MODE NASAL CANNULA
[2016-10-04] MEDS: HYDROCODONE/APAP (5/325) TAB PO PRN ×3 (03:41→21:26)
[2016-10-04] MEDS: PANTOPRAZOLE 40 MG INJ IV SCH (05:25)
[2016-10-04 06:06] LABS: HEMOGLOBIN 10.9 g/dl (14.0-18.0); MEAN CORPUSCULAR HEMOGLOBIN 31.3 pg (29.0-33.0); MEAN CORPUSCULAR VOLUME 92.1 fl (82.0-101.0); MEAN PLATELET VOLUME 9.1 fl (7.4-10.4); MONOCYTE # 1.1 10^3/ul (0.3-0.9); MONOCYTES % 7.5 % (0.0-11.0); NEUTROPHIL # 12.8 10^3/ul (1.6-7.5); NEUTROPHILS % 85.5 % (39.0-77.0); PLATELET COUNT 109 10^3/UL (140-440); RED BLOOD COUNT 3.47 10^6/ul (4.70-6.10); RED CELL DISTRIBUTION WIDTH 13.5 % (11.5-14.5); UNCORRECTED WBC 14.9 10^3/ul (4.8-10.8); WHITE BLOOD COUNT 14.9 10^3/ul (4.8-10.8)
[2016-10-04 06:35] LABS: CONDITION 1
[2016-10-04 07:16] LABS: ALBUMIN 3.3 g/dl (3.3-4.9)
[2016-10-04 07:19] LABS: ALBUMIN/GLOBULIN RATIO 1.1; BILIRUBIN,DIRECT 0.3 mg/dl (0.00-0.20); BILIRUBIN,TOTAL 1.3 mg/dl (0.2-1.3); CREATININE 0.79 mg/dl (0.61-1.24); TOTAL PROTEIN 6.3 g/dl (6.1-8.1)
[2016-10-04 07:20] LABS: CALCIUM 8.7 mg/dl (8.4-10.2)
[2016-10-04] MEDS: ASPIRIN (EC) 325 MG TAB PO SCH (08:37)
[2016-10-04] MEDS: METOPROLOL 25 MG TAB PO SCH (08:40)
[2016-10-04] MEDS: ENALAPRIL 20 MG TAB PO SCH (08:41)
[2016-10-04] MEDS: SOD CHLORIDE 0.45% 1,000 ML IV SCH (10:05)
--- NOTE | 2016-10-04 10:16 | CONS ---
Date/Time of Note Date/Time of Note DATE: 10/04/16 TIME: 10:07 Assessment/Plan Assessment/Plan Chief Complaint/Hosp Course Imp: 1.Cad s/p Cabg x 6 vesels POD #3 2.PAD with nonhealing toe ulcer 3.HTN 4.DM 5. Dyslipidemia Recc: -Tele -continue asa -Continue ACEI/hydralazine -Increase BB to improve BP control -Follow volume status closely -Routine post-op care Problems: Consultation Date/Type/Reason Admit Date/Time Sep 27, 2016 at 10:27 Initial Consult Date 09/27/2016 Type of Consultation: Cardiology Reason for Consultation cad Referring Provider: JERICHO NINA MD Exam/Review of Systems Vital Signs Vitals Vital Signs Date Time Temp Pulse Resp B/P Pulse Ox O2 Delivery O2 Flow Rate FiO2 10/04/16 08:00 106 10/04/16 07:30 97.9 19 146/97 97 Nasal Cannula 4.0 10/02/16 05:15 30 Intake and Output 10/03/16 10/03/16 10/04/16 15:00 23:00 07:00 Intake Total 11.0 ml 692.5 ml 161.5 ml Output Total 320 ml 520 ml 550 ml Balance -309.0 ml 172.5 ml -388.5 ml Exam Review of Systems: CONSTITUTIONAL: No fevers, chills. PULMONARY: mild sob CARDIOVASCULAR: No chest pain/palpitations GASTROINTESTINAL: No nausea/vomiting. GENITOURINARY: No hematuria/dysuria. MUSCULOSKELETAL: No myagias/arthalgias. PSYCHIATRIC: The patient denies depression. NEUROLOGIC: No weakness Constitutional: alert, oriented Psych: no complaints Head: normocephalic ENMT: mucosa pink and moist Neck: jvd (9 cm water), supple Respiratory: diminished breath sounds (at bases/B) Cardiovascular: regular rate and rhythm Gastrointestinal: non-tender, soft Musculoskeletal: muscle tone (normal) Extremities: edema (trace/B) Neurological: other (No focal deficits) Results Result Diagram: 10/04/16 0445 10/04/16 0445 Results 24 hrs Laboratory Tests Test 10/03/16 12:30 10/03/16 14:30 10/03/16 14:40 10/03/16 16:31 Bedside Glucose 169 163 135 Arterial Blood HCO3 17.2 L Arterial Blood Base Excess -6.0 L Arterial Blood Oxygen Saturation 95.6 Jack Test ACCEPTAB Arterial Blood Gas Puncture Site Right Radial Arterial Blood Carboxyhemoglobin 0.3 Arterial Blood Date Drawn 10/03/2016 3:10:44 PM Arterial Blood Methemoglobin 0.2 Arterial Blood pCO2 (Temp correct) 27.5 L Arterial Blood pH (Temp corrected) 7.415 Arterial Blood pO2 (Temp corrected) 83.6 Blood Gas A-a O2 Differential 119.6 H Blood Gas Modality NASAL CANNULA Blood Gas Notified Time 10/03/2016 3:22:13 PM Blood Gas Notified Whom JLD Blood Gas Specimen Source Blood arterial Blood Gas Temperature 37.0 FiO2 33.0 Oxyhemoglobin Percent 95.1 Total Hemoglobin 12.1 Test 10/03/16 18:10 10/03/16 18:12 10/03/16 20:31 10/03/16 22:20 Bedside Glucose 146 121 114 Urine Bilirubin NEGATIVE Urine Clarity CLEAR Urine Color LT. YELLOW Urine Glucose NEGATIVE Urine Hemoglobin 3+ H Urine Ketones 15 Urine Leukocyte Esterase TRACE H Urine Microscopic RBC 10-25 Urine Microscopic WBC 0-2 Urine Nitrite NEGATIVE Urine Specific [place] 1.020 Urine Squamous Epithelial Cells RARE Urine Total Protein 1+ H Urine Urobilinogen 1.0 E.U./dL Urine pH 6.0 Test 10/03/16 23:30 10/04/16 00:27 10/04/16 01:25 10/04/16 01:29 Bedside Glucose 139 124 111 Arterial Blood HCO3 16.1 L Arterial Blood Base Excess -8.5 L Arterial Blood Oxygen Saturation 94.6 L Jack Test ACCEPTAB Arterial Blood Gas Puncture Site Right Radial Arterial Blood Carboxyhemoglobin 0.3 Arterial Blood Date Drawn 10/04/2016 1:33:00 AM Arterial Blood Methemoglobin 0.2 Arterial Blood pCO2 (Temp correct) 30.4 L Arterial Blood pH (Temp corrected) 7.341 L Arterial Blood pO2 (Temp corrected) 84.3 Blood Gas A-a O2 Differential 115.5 H Blood Gas Actual Respiration Rate 22 Blood Gas Modality NASAL CANNULA Blood Gas Notified Time 10/04/2016 1:42:00 AM Blood Gas Notified Whom mina banks general passenger agent Blood Gas Specimen Source Blood arterial Blood Gas Temperature 37.0 FiO2 33.0 Oxyhemoglobin Percent 94.1 Total Hemoglobin 12.4 Test 10/04/16 02:31 10/04/16 03:30 10/04/16 04:28 10/04/16 04:45 Bedside Glucose 129 141 124 Alanine Aminotransferase (ALT/SGPT) 652 H Albumin 3.3 Albumin/Globulin Ratio 1.10 Alkaline Phosphatase 134 #H Anion Gap 18 H Aspartate Amino Transf (AST/SGOT) 702 #H Basophils # 0.0 Basophils % 0.0 Blood Urea Nitrogen 35 H Calcium Level 8.7 Carbon Dioxide Level 21 Chloride Level 98 Creatinine 0.79 Direct Bilirubin 0.30 #H Eosinophils # 0.0 Eosinophils % 0.0 Globulin 3.00 Glucose Level 146 Hematocrit 32.0 L Hemoglobin 10.9 L Indirect Bilirubin 1.0 Lymphocytes # 1.0 Lymphocytes % 7.0 L Mean Corpuscular Hemoglobin 31.3 Mean Corpuscular Hemoglobin Concent 34.0 Mean Corpuscular Volume 92.1 Mean Platelet Volume 9.1 Monocytes # 1.1 H Monocytes % 7.5 Neutrophils # 12.8 H Neutrophils % 85.5 H Nucleated Red Blood Cells # 0.0 Nucleated Red Blood Cells % 0.0 Platelet Count 109 L Potassium Level 5.0 Red Blood Count 3.47 L Red Cell Distribution Width 13.5 Sodium Level 132 L Total Bilirubin 1.3 Total Protein 6.3 White Blood Count 14.9 H Test 10/04/16 05:30 10/04/16 06:32 10/04/16 08:04 10/04/16 09:45 Bedside Glucose 135 132 119 165 Medications Medications Current Medications Morphine Sulfate (morphine) 2 mg Q2H PRN IV FOR NON CARDIAC PAIN (4-10) Last administered on 10/04/16 01:18; Admin Dose 2 MG; Start 09/27/16 at 10:30 Al Hydrox/Mg Hydrox/Simethicone (Mag-Al Plus) 30 ml Q4H PRN PO GASTROINTESTINAL UPSET; Start 09/27/16 at 10:30 Enalapril Maleate 20 mg 20 mg DAILY PO Last administered on 10/04/16 08:41; Admin Dose 20 MG; Start 09/28/16 at 09:00 Sodium Chloride (1/2 NS) 1,000 ml @ 50 mls/hr Q20H IV Last administered on 10/01 02:17; Admin Dose 50 MLS/HR; Start 09/27/16 at 18:05 Ondansetron HCl (Zofran Inj) 4 mg Q6H PRN IV NAUSEA AND/OR VOMITING; Start 09/27 at 18:30 Acetaminophen (Tylenol Tab) 650 mg Q6H PRN PO PAIN LEVEL 1-3 OR FEVER; Start at 18:30 Acetaminophen (Tylenol Supp) 650 mg Q6H PRN [place] PAIN LEVEL 1-3 OR FEVER Last administered on 10/02/16 00:08; Admin Dose 650 MG; Start 09/27/16 at 18:30 Acetaminophen/ Hydrocodone Bitart ([place] (5/325)) 1 tab Q6H PRN PO MODERATE PAIN LEVEL 4-6 Last administered on 10/04/16 09:42; Admin Dose 1 TAB; Start 09/27 at 18:30 Hydromorphone HCl (Dilaudid) 0.5 mg Q4H PRN IV SEVERE PAIN LEVEL 7-10 Last administered on 10/02/16 23:01; Admin Dose 0.5 MG; Start 09/27/16 at 18:30 Docusate Sodium (Colace) 100 mg Q12H PRN PO CONSTIPATION; Start 09/27/16 at 18: 30 Magnesium Hydroxide (Milk Of Mag) 30 ml DAILY PRN PO CONSTIPATION; Start at 18:30 Bisacodyl (Dulcolax) 5 mg DAILY PRN PO CONSTIPATION; Start 09/27/16 at 18:30 Enoxaparin Sodium (Lovenox) 40 mg DAILY SC Last administered on 09/30/16 08:35 ; Admin Dose 40 MG; Start 09/28/16 at 09:00; Status Future Hold Hydralazine HCl 25 mg 25 mg TID PO Last administered on 10/04/16 08:43; Admin Dose 25 MG; Start 09/28/16 at 21:00 Potassium Chloride/Calcium Chloride/Dextrose/ Sodium Chloride (KCl/Ca Chloride/ D5-1/4ns) 1,030 ml @ 60 mls/hr [id number] IV Last administered on 10/02/16 09:28 ; Admin Dose 60 MLS/HR; Start 10/01/16 at 14:00 Diagnostic Test (Pha) (Accucheck) 1 ea Q1H XX Last administered on 10/04/16 06: 33; Admin Dose 1 EA; Start 10/01/16 at 15:30 Dextrose (D50w Syringe) 25 ml Q15M PRN IV Till BS 80 mg/dL or above x2; Start 10/01/16 at 15:30 Dextrose 50 ml 50 ml Q15M PRN IV Till BS 80 mg/dL or above x2; Start 10/01/16 at 15:30 Nitroglycerin/ Dextrose 250 ml @ 3.33 mls/hr TITRATE IV Last administered on 17:09; Admin Dose 3.33 MLS/HR; Start 10/01/16 at 16:30 Dopamine HCl/ Dextrose 250 ml @ 5.498 mls/ hr TITRATE PRN IV Hypotension; Start 10/01/16 at 17:30 Milrinone Lactate (Primacor) 100 ml @ 8.246 mls/ hr TITRATE PRN IV hypotension Last administered on 10/01/16 19:24; Admin Dose 3.83 MLS/HR; Start 10/01/16 at 17:30 Pantoprazole (Protonix Iv) 40 mg DAILY@06 IV Last administered on 10/04/16 05: 25; Admin Dose 40 MG; Start 10/02/16 at 06:00 Lorazepam (Ativan) 1 mg BID PRN PO ANXIETY Last administered on 10/03/16 23:06 ; Admin Dose 1 MG; Start 10/03/16 at 10:30 Metoprolol Tartrate (Lopressor) 25 mg BID PO Last administered on 10/04/16 08: 40; Admin Dose 25 MG; Start 10/03/16 at 11:00 Aspirin 325 mg 325 mg DAILY PO Last administered on 10/04/16 08:37; Admin Dose 325 MG; Start 10/04/16 at 09:00 Levofloxacin/ Dextrose (Levaquin 500mg/ D5W 100 ml (Pmx)) 100 ml @ 100 mls/hr Q24H IVPB Last administered on 10/03/16 18:13; Admin Dose 100 MLS/HR; Start 10/03/16 at 18:30 LORI CASTREJON Oct 04, 2016 10:16
[2016-10-04] MEDS ORDERED: FUROSEMIDE 20 MG INJ IV ONE (10:30)
[2016-10-04] MEDS: POTASSIUM CHLORIDE 40 MEQ, CALCIUM CHLORIDE 10% 1 GM in DEXTROSE 5%-0.225% NACL 1,000 ML IV SCH (10:40)
--- NOTE | 2016-10-04 11:44 | RADRPT ---
Vent Rate: 124 bpm RR Interval: 0 msec [place] Interval: 124 msec QRS Duration: 108 msec QT Interval: 356 msec QTC Interval: 511 msec P-R-T [place]: 48 - -72 - 86 degrees Sinus tachycardia Left axis deviation Abnormal ECG Electronically Signed By: Sudhir Palmer [id number]
--- NOTE | 2016-10-04 11:45 | RADRPT ---
Vent Rate: 110 bpm RR Interval: 0 msec [place] Interval: 132 msec QRS Duration: 114 msec QT Interval: 368 msec QTC Interval: 498 msec P-R-T [place]: 48 - -65 - 95 degrees Sinus tachycardia with premature atrial complexes Left axis deviation ST elevation, consider inferior injury or acute infarct ST elevation, consider anterior injury or acute infarct ACUTE [place] Abnormal ECG Electronically Signed By: Sudhir Palmer [id number]
--- NOTE | 2016-10-04 11:45 | RADRPT ---
Vent Rate: 115 bpm RR Interval: 0 msec [place] Interval: 136 msec QRS Duration: 110 msec QT Interval: 366 msec QTC Interval: 506 msec P-R-T [place]: 55 - -69 - 100 degrees Sinus tachycardia Left axis deviation ST elevation, consider anterior injury or acute infarct ACUTE [place] Abnormal ECG Electronically Signed By: Sudhir Palmer [id number]
--- NOTE | 2016-10-04 11:47 | RADRPT ---
Vent Rate: 103 bpm RR Interval: 0 msec [place] Interval: 128 msec QRS Duration: 114 msec QT Interval: 362 msec QTC Interval: 474 msec P-R-T [place]: 32 - -61 - 45 degrees Sinus tachycardia with fusion complexes Left axis deviation ST elevation, consider anterolateral injury or acute infarct ST elevation, consider inferior injury or acute infarct ACUTE [place] Abnormal ECG Electronically Signed By: Sudhir Palmer [id number]
[2016-10-04] MEDS ORDERED: GLUCAGON 1 MG INJ IM PRN (13:30)
[2016-10-04] MEDS ORDERED: DEXTROSE 50% 50 ML SYRINGE IV PRN ×2 (13:30)
[2016-10-04] MEDS ORDERED: GLUCOSE GEL 15 GRAM TUBE PO PRN ×2 (13:30)
[2016-10-04] MEDS ORDERED: GLUCOSE GEL 15 GRAM TUBE BUCCAL PRN (13:30)
[2016-10-04] MEDS: INSULIN GLARGINE [LANtus] 3 ML PEN SC SCH (13:37)
[2016-10-04] MEDS ORDERED: INSULIN GLARGINE [LANtus] 3 ML PEN SC SCH (14:00)
--- NOTE | 2016-10-04 14:01 | RADRPT ---
PROCEDURE: US Abdomen (right upper quadrant). CLINICAL INDICATION: Elevated LFTs TECHNIQUE: Multiple real-time longitudinal and transverse images of the right upper quadrant of th e abdomen were acquired utilizing a curved array transducer. Images were reviewed on a high-resoluti on PACS workstation. COMPARISON: None FINDINGS: The liver is normal in size and is fatty infiltrated, without focal mass. Normal hepatopedal flow i s present within the main portal vein. The gallbladder contains sludge. There is no pericholecysti c fluid or gallbladder wall thickening or gallstones. No intra or extrahepatic biliary dilatation is seen. The common bile duct measures 4.2 mm in maximal dimension. The pancreas is obscured by hermes l gas. No peritoneal free fluid is identified. The right kidney measures 10.4 cm in length. No renal mass, calculus, hydronephrosis or perinephric fluid collection is identified. Right pleural effusion is incidentally noted. IMPRESSION: 1. Hepatic steatosis. 2. Gallbladder sludge is noted, without evidence for cholelithiasis or cholecystitis. 3. Right pleural effusion is noted. RPTAT: QQ .Alex Pastor MD, MD Date Time Electronically viewed and signed by .Alex Pastor MD, on 10/04/2016 14:01 .R/
[2016-10-04] MEDS: ALPRAZOLAM 0.25 MG TAB PO PRN (17:13)
[2016-10-04] MEDS: INSULIN ASPART [NOVOLOG] 3 ML PEN SC SCH ×2 (17:16→20:24)
--- NOTE | 2016-10-04 17:31 | PN ---
Date/Time of Note Date/Time of Note DATE: 10/04/16 TIME: 17:28 Assessment/Plan VTE Prophylaxis VTE Prophylaxis Intervention: other Lines/Catheters IV C[facility]ter Type (from [facility] Cordis Urinary Cath still in place: Yes Reason Cath still needed: other (indicate) Assessment/Plan Chief Complaint/Hosp Course A/P DM HTN S/P CATH POSITIVE FOR CAD PVD 1. Coronary artery bypass grafting x6, left internal mammary artery to left anterior descending, saphenous vein graft to the first diagonal branch of the left anterior descending, saphenous vein graft to the second diagonal branch of the LAD in a wide fashion. 2. Saphenous vein graft to the obtuse marginal branch of the circumflex. 3. Saphenous vein graft to the posterior descending artery. 4. Saphenous vein graft to the posterolateral artery in an open fashion at the bifurcation. 5. Right coronary endarterectomy. 6. Right coronary endarterectomy. 7. Left anterior descending endarterectomy. 8. Saphenous vein harvest from the left lower extremity. 9. Thymectomy 10 leucocytosis 11 abn lft PLANper surgery ck labs ua antibiotic Problems: Subjective 24 Hr Interval Summary Respiratory: no complaints Cardiovascular: no complaints Gastrointestinal: no complaints Skin: no complaints Exam/Review of Systems Vital Signs Vitals Vital Signs Date Time Temp Pulse Resp B/P Pulse Ox O2 Delivery O2 Flow Rate FiO2 10/04/16 16:27 6.0 10/04/16 16:00 103 10/04/16 15:00 16 118/63 98 Nasal Cannula 10/04/16 11:00 97.1 10/02/16 05:15 30 Intake and Output 10/03/16 10/03/16 10/04/16 15:00 23:00 07:00 Intake Total 11.0 ml 692.5 ml 161.5 ml Output Total 320 ml 520 ml 550 ml Balance -309.0 ml 172.5 ml -388.5 ml Exam Respiratory: diminished breath sounds Cardiovascular: regular rate and rhythm Gastrointestinal: soft Musculoskeletal: nl extremities to inspection Results Result Diagram: 10/04/16 0445 10/04/16 0445 Results 24 hrs Laboratory Tests Test 10/03/16 18:10 10/03/16 18:12 10/03/16 20:31 10/03/16 22:20 Bedside Glucose 146 121 114 Urine Bilirubin NEGATIVE Urine Clarity CLEAR Urine Color LT. YELLOW Urine Glucose NEGATIVE Urine Hemoglobin 3+ H Urine Ketones 15 Urine Leukocyte Esterase TRACE H Urine Microscopic RBC 10-25 Urine Microscopic WBC 0-2 Urine Nitrite NEGATIVE Urine Specific [place] 1.020 Urine Squamous Epithelial Cells RARE Urine Total Protein 1+ H Urine Urobilinogen 1.0 E.U./dL Urine pH 6.0 Test 10/03/16 23:30 10/04/16 00:27 10/04/16 01:25 10/04/16 01:29 Bedside Glucose 139 124 111 Arterial Blood HCO3 16.1 L Arterial Blood Base Excess -8.5 L Arterial Blood Oxygen Saturation 94.6 L Jack Test ACCEPTAB Arterial Blood Gas Puncture Site Right Radial Arterial Blood Carboxyhemoglobin 0.3 Arterial Blood Date Drawn 10/04/2016 1:33:00 AM Arterial Blood Methemoglobin 0.2 Arterial Blood pCO2 (Temp correct) 30.4 L Arterial Blood pH (Temp corrected) 7.341 L Arterial Blood pO2 (Temp corrected) 84.3 Blood Gas A-a O2 Differential 115.5 H Blood Gas Actual Respiration Rate 22 Blood Gas Modality NASAL CANNULA Blood Gas Notified Time 10/04/2016 1:42:00 AM Blood Gas Notified 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 Blood Gas Specimen Source Blood arterial Blood Gas Temperature 37.0 FiO2 33.0 Oxyhemoglobin Percent 94.1 Total Hemoglobin 12.4 Test 10/04/16 02:31 10/04/16 03:30 10/04/16 04:28 10/04/16 04:45 Bedside Glucose 129 141 124 Alanine Aminotransferase (ALT/SGPT) 652 H Albumin 3.3 Albumin/Globulin Ratio 1.10 Alkaline Phosphatase 134 #H Anion Gap 18 H Aspartate Amino Transf (AST/SGOT) 702 #H Basophils # 0.0 Basophils % 0.0 Blood Urea Nitrogen 35 H Calcium Level 8.7 Carbon Dioxide Level 21 Chloride Level 98 Creatinine 0.79 Direct Bilirubin 0.30 #H Eosinophils # 0.0 Eosinophils % 0.0 Globulin 3.00 Glucose Level 146 Hematocrit 32.0 L Hemoglobin 10.9 L Indirect Bilirubin 1.0 Lymphocytes # 1.0 Lymphocytes % 7.0 L Mean Corpuscular Hemoglobin 31.3 Mean Corpuscular Hemoglobin Concent 34.0 Mean Corpuscular Volume 92.1 Mean Platelet Volume 9.1 Monocytes # 1.1 H Monocytes % 7.5 Neutrophils # 12.8 H Neutrophils % 85.5 H Nucleated Red Blood Cells # 0.0 Nucleated Red Blood Cells % 0.0 Platelet Count 109 L Potassium Level 5.0 Red Blood Count 3.47 L Red Cell Distribution Width 13.5 Sodium Level 132 L Total Bilirubin 1.3 Total Protein 6.3 White Blood Count 14.9 H Test 10/04/16 05:30 10/04/16 06:32 10/04/16 08:04 10/04/16 09:45 Bedside Glucose 135 132 119 165 Test 10/04/16 11:38 10/04/16 13:34 10/04/16 17:15 Bedside Glucose 117 163 125 Medications Medications Current Medications Morphine Sulfate (morphine) 2 mg Q2H PRN IV FOR NON CARDIAC PAIN (4-10) Last administered on 10/04/16 01:18; Admin Dose 2 MG; Start 09/27/16 at 10:30 Al Hydrox/Mg Hydrox/Simethicone (Mag-Al Plus) 30 ml Q4H PRN PO GASTROINTESTINAL UPSET; Start 09/27/16 at 10:30 Enalapril Maleate 20 mg 20 mg DAILY PO Last administered on 10/04/16 08:41; Admin Dose 20 MG; Start 09/28/16 at 09:00 Sodium Chloride (1/2 NS) 1,000 ml @ 50 mls/hr Q20H IV Last administered on 10/01 02:17; Admin Dose 50 MLS/HR; Start 09/27/16 at 18:05 Ondansetron HCl (Zofran Inj) 4 mg Q6H PRN IV NAUSEA AND/OR VOMITING; Start 09/27 at 18:30 Acetaminophen (Tylenol Tab) 650 mg Q6H PRN PO PAIN LEVEL 1-3 OR FEVER; Start at 18:30 Acetaminophen (Tylenol Supp) 650 mg Q6H PRN [place] PAIN LEVEL 1-3 OR FEVER Last administered on 10/02/16 00:08; Admin Dose 650 MG; Start 09/27/16 at 18:30 Acetaminophen/ Hydrocodone Bitart ([place] (5/325)) 1 tab Q6H PRN PO MODERATE PAIN LEVEL 4-6 Last administered on 10/04/16 09:42; Admin Dose 1 TAB; Start 09/27 at 18:30 Hydromorphone HCl (Dilaudid) 0.5 mg Q4H PRN IV SEVERE PAIN LEVEL 7-10 Last administered on 10/02/16 23:01; Admin Dose 0.5 MG; Start 09/27/16 at 18:30 Docusate Sodium (Colace) 100 mg Q12H PRN PO CONSTIPATION; Start 09/27/16 at 18: 30 Magnesium Hydroxide (Milk Of Mag) 30 ml DAILY PRN PO CONSTIPATION; Start at 18:30 Bisacodyl (Dulcolax) 5 mg DAILY PRN PO CONSTIPATION; Start 09/27/16 at 18:30 Enoxaparin Sodium (Lovenox) 40 mg DAILY SC Last administered on 09/30/16 08:35 ; Admin Dose 40 MG; Start 09/28/16 at 09:00; Status Future Hold Hydralazine HCl 25 mg 25 mg TID PO Last administered on 10/04/16 13:39; Admin Dose 25 MG; Start 09/28/16 at 21:00 Potassium Chloride/Calcium Chloride/Dextrose/ Sodium Chloride (KCl/Ca Chloride/ D5-1/4ns) 1,030 ml @ 60 mls/hr [id number] IV Last administered on 10/02/16 09:28 ; Admin Dose 60 MLS/HR; Start 10/01/16 at 14:00 Diagnostic Test (Pha) (Accucheck) 1 ea Q1H XX Last administered on 10/04/16 06: 33; Admin Dose 1 EA; Start 10/01/16 at 15:30 Dextrose (D50w Syringe) 25 ml Q15M PRN IV Till BS 80 mg/dL or above x2; Start 10/01/16 at 15:30 Dextrose 50 ml 50 ml Q15M PRN IV Till BS 80 mg/dL or above x2; Start 10/01/16 at 15:30 Nitroglycerin/ Dextrose 250 ml @ 3.33 mls/hr TITRATE IV Last administered on 17:09; Admin Dose 3.33 MLS/HR; Start 10/01/16 at 16:30 Dopamine HCl/ Dextrose 250 ml @ 5.498 mls/ hr TITRATE PRN IV Hypotension; Start 10/01/16 at 17:30 Milrinone Lactate (Primacor) 100 ml @ 8.246 mls/ hr TITRATE PRN IV hypotension Last administered on 10/01/16 19:24; Admin Dose 3.83 MLS/HR; Start 10/01/16 at 17:30 Pantoprazole (Protonix Iv) 40 mg DAILY@06 IV Last administered on 10/04/16 05: 25; Admin Dose 40 MG; Start 10/02/16 at 06:00 Lorazepam (Ativan) 1 mg BID PRN PO ANXIETY Last administered on 10/03/16 23:06 ; Admin Dose 1 MG; Start 10/03/16 at 10:30 Aspirin 325 mg 325 mg DAILY PO Last administered on 10/04/16 08:37; Admin Dose 325 MG; Start 10/04/16 at 09:00 Levofloxacin/ Dextrose (Levaquin 500mg/ D5W 100 ml (Pmx)) 100 ml @ 100 mls/hr Q24H IVPB Last administered on 10/03/16 18:13; Admin Dose 100 MLS/HR; Start 10/03/16 at 18:30 Metoprolol Tartrate (Lopressor) 50 mg BID PO ; Start 10/04/16 at 21:00 Diagnostic Test (Pha) (Accucheck) 1 ea 02 XX ; Start 10/05/16 at 02:00 Miscellaneous Information 1 ea NOTE XX ; Start 10/04/16 at 13:30 Glucose (Glutose) 15 gm Q15M PRN PO DECREASED GLUCOSE; Start 10/04/16 at 13:30 Glucose (Glutose) 22.5 gm Q15M PRN PO DECREASED GLUCOSE; Start 10/04/16 at 13:30 Dextrose (D50w Syringe) 25 ml Q15M PRN IV DECREASED GLUCOSE; Start 10/04/16 at 13:30 Dextrose (D50w Syringe) 50 ml Q15M PRN IV DECREASED GLUCOSE; Start 10/04/16 at 13:30 Glucagon (Glucagen) 1 mg Q15M PRN IM DECREASED GLUCOSE; Start 10/04/16 at 13:30 Glucose (Glutose) 15 gm Q15M PRN BUCCAL DECREASED GLUCOSE; Start 10/04/16 at 13: 30 Insulin Glargine (Lantus) 8 unit DAILY@20 SC Last administered on 10/04/16 13: 37; Admin Dose 8 UNIT; Start 10/04/16 at 14:00 Alprazolam (Xanax) 0.25 mg Q12H PRN PO ANXIETY Last administered on 10/04/16t 17 :13; Admin Dose 0.25 MG; Start 10/04/16 at 17:00 JERICHO NINA MD Oct 04, 2016 17:31
[2016-10-04] MEDS: LEVOFLOXACIN 500MG/D5W (PMX) 100 ML IVPB SCH (18:44)
[2016-10-04] MEDS: LORAZEPAM 1 MG TAB PO PRN (20:19)
[2016-10-04] MEDS: METOPROLOL 50 MG TAB PO SCH (20:20)
--- NOTE | 2016-10-04 21:52 | PN ---
Date/Time of Note Date/Time of Note DATE: 10/04/16 TIME: 21:50 Assessment/Plan Lines/Catheters IV Catheter Type (from Nrsg): Cordis Bautista in Place (from Nrsg): Yes Assessment/Plan Chief Complaint/Hosp Course IMPRESSION: 1. Coronary artery disease. 2. Peripheral vascular disease. 3. Left toe ulcer. SP CABG Supp Tx DC CT, pacing wires mobilize Problems: Subjective 24 Hr Interval Summary Constitutional: improved Pain Control: mild Exam/Review of Systems Vital Signs Vitals Vital Signs Date Time Temp Pulse Resp B/P Pulse Ox O2 Delivery O2 Flow Rate FiO2 10/04/16 20:00 100 10/04/16 18:00 22 117/79 97 Nasal Cannula 10/04/16 16:27 6.0 10/04/16 16:00 97.3 10/02/16 05:15 30 Intake and Output 10/03/16 10/03/16 10/04/16 15:00 23:00 07:00 Intake Total 11.0 ml 692.5 ml 161.5 ml Output Total 320 ml 520 ml 550 ml Balance -309.0 ml 172.5 ml -388.5 ml Exam ENMT: mucosa pink and moist, nl external ears & nose, nl lips & teeth, nl nasal mucosa & septum Neck: non-tender, supple Respiratory: clear to auscultation, normal air movement Cardiovascular: nl pulses, regular rate and rhythm Results Result Diagram: 10/04/1644410/04/16444 CONSTANZA AWAD MD Oct 04, 2016 21:52
[2016-10-04] MEDS ORDERED: INFLUENZA VIRUS VACCINE 0.5 ML SYG IM* ONE (22:00)
[2016-10-05] VITALS (23 sets, daily range): BP systolic 91–164; BP diastolic 60–106; PULSE 84–107; RESP 16–35
[2016-10-05] MEDS: ACCUCHECK XX SCH (02:00)
[2016-10-05] MEDS: POTASSIUM CHLORIDE 40 MEQ, CALCIUM CHLORIDE 10% 1 GM in DEXTROSE 5%-0.225% NACL 1,000 ML IV SCH (03:50)
[2016-10-05] MEDS: PANTOPRAZOLE 40 MG INJ IV SCH (05:44)
[2016-10-05 05:56] LABS: ADD SCAN DIFF NO
[2016-10-05] MEDS: SOD CHLORIDE 0.45% 1,000 ML IV SCH (06:05)
[2016-10-05 06:21] LABS: BASOPHILS % 0.1 % (0.0-2.0); HEMATOCRIT 30.9 % (42.0-52.0); HEMOGLOBIN 10.5 g/dl (14.0-18.0); LYMPHOCYTES # 1.5 10^3/ul (0.8-2.9); LYMPHOCYTES % 11.5 % (15.0-51.0); MEAN CORPUSCULAR HEMOGLOBIN 30.7 pg (29.0-33.0); MEAN CORPUSCULAR VOLUME 90.4 fl (82.0-101.0); MONOCYTE # 1.3 10^3/ul (0.3-0.9); MONOCYTES % 9.8 % (0.0-11.0); NEUTROPHIL # 10.1 10^3/ul (1.6-7.5); NEUTROPHILS % 77.2 % (39.0-77.0); PLATELET COUNT 132 10^3/UL (140-415); RED BLOOD COUNT 3.42 10^6/ul (4.70-6.10); RED CELL DISTRIBUTION WIDTH 12.6 % (11.5-14.5); WHITE BLOOD COUNT 13.1 10^3/ul (4.8-10.8)
[2016-10-05 06:38] LABS: ALBUMIN 2.5 g/dl (3.3-4.9)
[2016-10-05 06:39] LABS: POTASSIUM 4.5 mmol/L (3.5-5.1)
[2016-10-05 06:41] LABS: ALBUMIN/GLOBULIN RATIO 1.04; BILIRUBIN,INDIRECT 0.5 mg/dl (0-1.1); BILIRUBIN,TOTAL 0.5 mg/dl (0.2-1.3); CREATININE 0.62 mg/dl (0.61-1.24); TOTAL PROTEIN 4.9 g/dl (6.1-8.1)
[2016-10-05 06:42] LABS: CALCIUM 6.9 mg/dl (8.4-10.2)
[2016-10-05] MEDS: INSULIN ASPART [NOVOLOG] 3 ML PEN SC SCH ×4 (07:35→20:55)
--- NOTE | 2016-10-05 07:55 | PN ---
Date/Time of Note Date/Time of Note DATE: 10/05/16 TIME: 07:54 Assessment/Plan Lines/Catheters IV Catheter Type (from Nrsg): Cordis Bautista in Place (from Nrsg): Yes Assessment/Plan Chief Complaint/Hosp Course IMPRESSION: 1. Coronary artery disease. 2. Peripheral vascular disease. 3. Left toe ulcer. SP CABG Supp Tx To EMRE mobilize Problems: Subjective 24 Hr Interval Summary Constitutional: improved Pain Control: mild Exam/Review of Systems Vital Signs Vitals Vital Signs Date Time Temp Pulse Resp B/P Pulse Ox O2 Delivery O2 Flow Rate FiO2 10/05/16 06:00 103 29 164/92 99 Nasal Cannula 10/05/16 05:08 6.0 10/05/16 04:00 98.1 10/02/16 05:15 30 Intake and Output 10/04/16 10/04/16 10/05/16 15:00 23:00 07:00 Intake Total 558 ml 120 ml Output Total 1210 ml 600 ml 390 ml Balance -652 ml -480 ml -390 ml Exam ENMT: mucosa pink and moist, nl external ears & nose, nl lips & teeth, nl nasal mucosa & septum Neck: non-tender, supple Respiratory: clear to auscultation, normal air movement Cardiovascular: nl pulses, regular rate and rhythm Results Result Diagram: 10/05/1642910/05/16429 CONSTANZA AWDA MD Oct 05, 2016 07:55
[2016-10-05] MEDS: METOPROLOL 50 MG TAB PO SCH ×2 (08:39→20:50)
[2016-10-05] MEDS: ENALAPRIL 20 MG TAB PO SCH (08:39)
[2016-10-05] MEDS: ASPIRIN (EC) 325 MG TAB PO SCH (08:39)
--- NOTE | 2016-10-05 09:46 | CONS ---
Date/Time of Note Date/Time of Note DATE: 10/05/16 TIME: 09:43 Assessment/Plan Assessment/Plan Chief Complaint/Hosp Course Imp: 1.Cad s/p Cabg x 6 vesels POD #4 2.PAD with nonhealing toe ulcer 3.HTN 4.DM 5. Dyslipidemia Recc: -Tele -continue asa -Continue ACEI/hydralazine/BB as tolerated and may need o decreases doses if BP remains marginal -Follow volume status closely -Routine post-op care -Remove any unneccesary lines/follow WBC closely Problems: Consultation Date/Type/Reason Admit Date/Time Sep 27, 2016 at 10:27 Initial Consult Date 09/27/2016 Type of Consultation: Cardiology Reason for Consultation cad/cabg Referring Provider: JERICHO NINA MD Exam/Review of Systems Vital Signs Vitals Vital Signs Date Time Temp Pulse Resp B/P Pulse Ox O2 Delivery O2 Flow Rate FiO2 10/05/16 08:06 Nasal Cannula 2.0 10/05/16 07:45 97.9 107 24 157/75 93 10/02/16 05:15 30 Intake and Output 10/04/16 10/04/16 10/05/16 15:00 23:00 07:00 Intake Total 558 ml 120 ml Output Total 1210 ml 600 ml 390 ml Balance -652 ml -480 ml -390 ml Exam Review of Systems: CONSTITUTIONAL: c/o feeling cold. PULMONARY: No sob CARDIOVASCULAR: No chest pain/palpitations GASTROINTESTINAL: No nausea/vomiting. GENITOURINARY: No hematuria/dysuria. MUSCULOSKELETAL: No myagias/arthalgias. PSYCHIATRIC: The patient denies depression. NEUROLOGIC: No weakness Constitutional: alert Psych: no complaints ENMT: mucosa pink and moist Neck: jvd (9 cm water), supple Respiratory: diminished breath sounds (at bases/B) Cardiovascular: regular rate and rhythm Gastrointestinal: non-tender, soft Musculoskeletal: muscle tone (normal) Extremities: edema (none) Neurological: other (No focal deficits) Results Result Diagram: 10/05/160 10/05/16 043 Results 24 hrs Laboratory Tests Test 10/04/16 09:45 10/04/16 11:38 10/04/16 13:34 10/04/16 17:15 Bedside Glucose 165 117 163 125 Test 10/04/16 20:23 10/05/16 04:30 10/05/16 08:18 Bedside Glucose 149 135 Alanine Aminotransferase (ALT/SGPT) 427 H Albumin 2.5 L Albumin/Globulin Ratio 1.04 Alkaline Phosphatase 162 H Anion Gap 18 H Aspartate Amino Transf (AST/SGOT) 218 #H Basophils # 0.0 Basophils % 0.1 Blood Urea Nitrogen 24 #H Calcium Level 6.9 L Carbon Dioxide Level 16 L Chloride Level 107 Creatinine 0.62 Direct Bilirubin 0.00 # Eosinophils # 0.0 Eosinophils % 0.0 Globulin 2.40 Glucose Level 157 Hematocrit 30.9 L Hemoglobin 10.5 L Indirect Bilirubin 0.5 Lymphocytes # 1.5 Lymphocytes % 11.5 L Mean Corpuscular Hemoglobin 30.7 Mean Corpuscular Hemoglobin Concent 34.0 Mean Corpuscular Volume 90.4 Mean Platelet Volume 11.0 #H Monocytes # 1.3 H Monocytes % 9.8 Neutrophils # 10.1 H Neutrophils % 77.2 H Nucleated Red Blood Cells # 0.0 Nucleated Red Blood Cells % 0.0 Platelet Count 132 L Potassium Level 4.5 Red Blood Count 3.42 L Red Cell Distribution Width 12.6 Sodium Level 136 Total Bilirubin 0.5 Total Protein 4.9 #L White Blood Count 13.1 H Medications Medications Current Medications Morphine Sulfate (morphine) 2 mg Q2H PRN IV FOR NON CARDIAC PAIN (4-10) Last administered on 10/04/16 01:18; Admin Dose 2 MG; Start 09/27/16 at 10:30 Al Hydrox/Mg Hydrox/Simethicone (Mag-Al Plus) 30 ml Q4H PRN PO GASTROINTESTINAL UPSET; Start 09/27/16 at 10:30 Enalapril Maleate 20 mg 20 mg DAILY PO Last administered on 10/05/16 08:39; Admin Dose 20 MG; Start 09/28/16 at 09:00 Sodium Chloride (1/2 NS) 1,000 ml @ 50 mls/hr Q20H IV Last administered on 10/01 02:17; Admin Dose 50 MLS/HR; Start 09/27/16 at 18:05 Ondansetron HCl (Zofran Inj) 4 mg Q6H PRN IV NAUSEA AND/OR VOMITING; Start 09/27 at 18:30 Acetaminophen (Tylenol Tab) 650 mg Q6H PRN PO PAIN LEVEL 1-3 OR FEVER; Start at 18:30 Acetaminophen (Tylenol Supp) 650 mg Q6H PRN [place] PAIN LEVEL 1-3 OR FEVER Last administered on 10/02/16 00:08; Admin Dose 650 MG; Start 09/27/16 at 18:30 Acetaminophen/ Hydrocodone Bitart ([place] (5/325)) 1 tab Q6H PRN PO MODERATE PAIN LEVEL 4-6 Last administered on 10/04/16 21:26; Admin Dose 1 TAB; Start 09/27 at 18:30 Hydromorphone HCl (Dilaudid) 0.5 mg Q4H PRN IV SEVERE PAIN LEVEL 7-10 Last administered on 10/02/16 23:01; Admin Dose 0.5 MG; Start 09/27/16 at 18:30 Docusate Sodium (Colace) 100 mg Q12H PRN PO CONSTIPATION; Start 09/27/16 at 18: 30 Magnesium Hydroxide (Milk Of Mag) 30 ml DAILY PRN PO CONSTIPATION; Start at 18:30 Bisacodyl (Dulcolax) 5 mg DAILY PRN PO CONSTIPATION Last administered on 08:39; Admin Dose 5 MG; Start 09/27/16 at 18:30 Enoxaparin Sodium (Lovenox) 40 mg DAILY SC Last administered on 09/30/16 08:35 ; Admin Dose 40 MG; Start 09/28/16 at 09:00; Status Future Hold Hydralazine HCl 25 mg 25 mg TID PO Last administered on 10/05/16 08:40; Admin Dose 25 MG; Start 09/28/16 at 21:00 Potassium Chloride/Calcium Chloride/Dextrose/ Sodium Chloride (KCl/Ca Chloride/ D5-1/4ns) 1,030 ml @ 60 mls/hr [id number] IV Last administered on 10/02/16 09:28 ; Admin Dose 60 MLS/HR; Start 10/01/16 at 14:00 Diagnostic Test (Pha) (Accucheck) 1 ea Q1H XX Last administered on 10/04/16 06: 33; Admin Dose 1 EA; Start 10/01/16 at 15:30 Dextrose (D50w Syringe) 25 ml Q15M PRN IV Till BS 80 mg/dL or above x2; Start 10/01/16 at 15:30 Dextrose 50 ml 50 ml Q15M PRN IV Till BS 80 mg/dL or above x2; Start 10/01/16 at 15:30 Nitroglycerin/ Dextrose 250 ml @ 3.33 mls/hr TITRATE IV Last administered on 17:09; Admin Dose 3.33 MLS/HR; Start 10/01/16 at 16:30 Dopamine HCl/ Dextrose 250 ml @ 5.498 mls/ hr TITRATE PRN IV Hypotension; Start 10/01/16 at 17:30 Milrinone Lactate (Primacor) 100 ml @ 8.246 mls/ hr TITRATE PRN IV hypotension Last administered on 10/01/16 19:24; Admin Dose 3.83 MLS/HR; Start 10/01/16 at 17:30 Pantoprazole (Protonix Iv) 40 mg DAILY@06 IV Last administered on 10/05/16 05: 44; Admin Dose 40 MG; Start 10/02/16 at 06:00 Lorazepam (Ativan) 1 mg BID PRN PO ANXIETY Last administered on 10/04/16 20:19 ; Admin Dose 1 MG; Start 10/03/16 at 10:30 Aspirin 325 mg 325 mg DAILY PO Last administered on 10/05/16 08:39; Admin Dose 325 MG; Start 10/04/16 at 09:00 Levofloxacin/ Dextrose (Levaquin 500mg/ D5W 100 ml (Pmx)) 100 ml @ 100 mls/hr Q24H IVPB Last administered on 10/04/16 18:44; Admin Dose 100 MLS/HR; Start 10/03/16 at 18:30 Metoprolol Tartrate (Lopressor) 50 mg BID PO Last administered on 10/05/16 08: 39; Admin Dose 50 MG; Start 10/04/16 at 21:00 Diagnostic Test (Pha) (Accucheck) 1 ea 02 XX ; Start 10/05/16 at 02:00 Miscellaneous Information 1 ea NOTE XX ; Start 10/04/16 at 13:30 Glucose (Glutose) 15 gm Q15M PRN PO DECREASED GLUCOSE; Start 10/04/16 at 13:30 Glucose (Glutose) 22.5 gm Q15M PRN PO DECREASED GLUCOSE; Start 2/9/17 at 13:30 Dextrose (D50w Syringe) 25 ml Q15M PRN IV DECREASED GLUCOSE; Start 10/04/16 at 13:30 Dextrose (D50w Syringe) 50 ml Q15M PRN IV DECREASED GLUCOSE; Start 10/04/16 at 13:30 Glucagon (Glucagen) 1 mg Q15M PRN IM DECREASED GLUCOSE; Start 10/04/16 at 13:30 Glucose (Glutose) 15 gm Q15M PRN BUCCAL DECREASED GLUCOSE; Start 10/04/16 at 13: 30 Insulin Glargine (Lantus) 8 unit DAILY@20 SC Last administered on 10/04/16 13: 37; Admin Dose 8 UNIT; Start 10/04/16 at 14:00 Alprazolam (Xanax) 0.25 mg Q12H PRN PO ANXIETY Last administered on 10/04/16 17 :13; Admin Dose 0.25 MG; Start 10/04/16 at 17:00 LORI CASTREJON Oct 05, 2016 09:46
[2016-10-05] MEDS: HYDROCODONE/APAP (5/325) TAB PO PRN ×2 (09:54→23:15)
--- NOTE | 2016-10-05 16:14 | PN ---
Date/Time of Note Date/Time of Note DATE: 10/05/16 TIME: 16:13 Assessment/Plan VTE Prophylaxis VTE Prophylaxis Intervention: other Lines/Catheters [facility] Cord[facility] Urinary Cath still in place: Yes Reason Cath still needed: other (indicate) Assessment/Plan Chief Complaint/Hosp Course A/P DM HTN S/P CATH POSITIVE FOR CAD PVD 1. Coronary artery bypass grafting x6, left internal mammary artery to left anterior descending, saphenous vein graft to the first diagonal branch of the left anterior descending, saphenous vein graft to the second diagonal branch of the LAD in a wide fashion. 2. Saphenous vein graft to the obtuse marginal branch of the circumflex. 3. Saphenous vein graft to the posterior descending artery. 4. Saphenous vein graft to the posterolateral artery in an open fashion at the bifurcation. 5. Right coronary endarterectomy. 6. Right coronary endarterectomy. 7. Left anterior descending endarterectomy. 8. Saphenous vein harvest from the left lower extremity. 9. Thymectomy 10 leucocytosis 11 abn lft PLANper surgery ck labs tele Problems: Subjective 24 Hr Interval Summary Respiratory: no complaints Cardiovascular: no complaints Gastrointestinal: no complaints Exam/Review of Systems Vital Signs Vitals Vital Signs Date Time Temp Pulse Resp B/P Pulse Ox O2 Delivery O2 Flow Rate FiO2 10/05/16 15:00 95 19 143/87 96 Nasal Cannula 10/05/16 11:00 98.0 10/05/16 08:06 2.0 10/02/16 05:15 30 Intake and Output 10/04/16 10/04/16 10/05/16 15:00 23:00 07:00 Intake Total 558 ml 120 ml Output Total 1210 ml 600 ml 390 ml Balance -652 ml -480 ml -390 ml Exam Respiratory: diminished breath sounds Cardiovascular: regular rate and rhythm Gastrointestinal: bowel sounds (+), soft Extremities: No edema Results Result Diagram: 10/05/16 04310/05/16 0430 Results 24 hrs Laboratory Tests Test 10/04/16 17:15 10/04/16 20:23 10/05/16 04:30 10/05/16 08:18 Bedside Glucose 125 149 135 Alanine Aminotransferase (ALT/SGPT) 427 H Albumin 2.5 L Albumin/Globulin Ratio 1.04 Alkaline Phosphatase 162 H Anion Gap 18 H Aspartate Amino Transf (AST/SGOT) 218 #H Basophils # 0.0 Basophils % 0.1 Blood Urea Nitrogen 24 #H Calcium Level 6.9 L Carbon Dioxide Level 16 L Chloride Level 107 Creatinine 0.62 Direct Bilirubin 0.00 # Eosinophils # 0.0 Eosinophils % 0.0 Globulin 2.40 Glucose Level 157 Hematocrit 30.9 L Hemoglobin 10.5 L Indirect Bilirubin 0.5 Lymphocytes # 1.5 Lymphocytes % 11.5 L Mean Corpuscular Hemoglobin 30.7 Mean Corpuscular Hemoglobin Concent 34.0 Mean Corpuscular Volume 90.4 Mean Platelet Volume 11.0 #H Monocytes # 1.3 H Monocytes % 9.8 Neutrophils # 10.1 H Neutrophils % 77.2 H Nucleated Red Blood Cells # 0.0 Nucleated Red Blood Cells % 0.0 Platelet Count 132 L Potassium Level 4.5 Red Blood Count 3.42 L Red Cell Distribution Width 12.6 Sodium Level 136 Total Bilirubin 0.5 Total Protein 4.9 #L White Blood Count 13.1 H Test 10/05/16 12:02 Bedside Glucose 150 Medications Medications Current Medications Morphine Sulfate (morphine) 2 mg Q2H PRN IV FOR NON CARDIAC PAIN (4-10) Last administered on 10/04/16 01:18; Admin Dose 2 MG; Start 09/27/16 at 10:30 Al Hydrox/Mg Hydrox/Simethicone (Mag-Al Plus) 30 ml Q4H PRN PO GASTROINTESTINAL UPSET; Start 09/27/16 at 10:30 Enalapril Maleate (Vasotec) 20 mg DAILY PO Last administered on 10/05/16 08:39 ; Admin Dose 20 MG; Start 09/28/16 at 09:00 Ondansetron HCl (Zofran Inj) 4 mg Q6H PRN IV NAUSEA AND/OR VOMITING; Start 09/27 at 18:30 Acetaminophen (Tylenol Tab) 650 mg Q6H PRN PO PAIN LEVEL 1-3 OR FEVER; Start at 18:30 Acetaminophen/ Hydrocodone Bitart ([place] (5/325)) 1 tab Q6H PRN PO MODERATE PAIN LEVEL 4-6 Last administered on 10/05/16 09:54; Admin Dose 1 TAB; Start 09/27/16 at 18:30 Docusate Sodium (Colace) 100 mg Q12H PRN PO CONSTIPATION; Start 09/27/16 at 18: 30 Magnesium Hydroxide (Milk Of Mag) 30 ml DAILY PRN PO CONSTIPATION; Start at 18:30 Bisacodyl (Dulcolax) 5 mg DAILY PRN PO CONSTIPATION Last administered on 08:39; Admin Dose 5 MG; Start 09/27/16 at 18:30 Enoxaparin Sodium (Lovenox) 40 mg DAILY SC Last administered on 09/30/16 08:35 ; Admin Dose 40 MG; Start 09/28/16 at 09:00; Status Future Hold Hydralazine HCl (Apresoline) 25 mg TID PO Last administered on 10/05/16 08:40 ; Admin Dose 25 MG; Start 09/28/16 at 21:00 Dextrose (D50w Syringe) 25 ml Q15M PRN IV Till BS 80 mg/dL or above x2; Start 10/01/16 at 15:30 Dextrose (D50w Syringe) 50 ml Q15M PRN IV Till BS 80 mg/dL or above x2; Start 10/01/16 at 15:30 Pantoprazole (Protonix Iv) 40 mg DAILY@06 IV Last administered on 10/05/16 05: 44; Admin Dose 40 MG; Start 10/02/16 at 06:00 Lorazepam (Ativan) 1 mg BID PRN PO ANXIETY Last administered on 10/04/16 20:19 ; Admin Dose 1 MG; Start 10/03/16 at 10:30 Aspirin 325 mg 325 mg DAILY PO Last administered on 10/05/16 08:39; Admin Dose 325 MG; Start 10/04/16 at 09:00 Levofloxacin/ Dextrose (Levaquin 500mg/ D5W 100 ml (Pmx)) 100 ml @ 100 mls/hr Q24H IVPB Last administered on 10/04/16 18:44; Admin Dose 100 MLS/HR; Start 10/03/16 at 18:30 Metoprolol Tartrate (Lopressor) 50 mg BID PO Last administered on 10/05/16 08: 39; Admin Dose 50 MG; Start 10/04/16 at 21:00 Diagnostic Test (Pha) (Accucheck) 1 ea 02 XX ; Start 10/05/16 at 02:00 Miscellaneous Information 1 ea NOTE XX ; Start 10/04/16 at 13:30 Glucose (Glutose) 15 gm Q15M PRN PO DECREASED GLUCOSE; Start 10/04/16 at 13:30 Glucose (Glutose) 22.5 gm Q15M PRN PO DECREASED GLUCOSE; Start 10/04/16 at 13:30 Dextrose (D50w Syringe) 25 ml Q15M PRN IV DECREASED GLUCOSE; Start 10/04/16 at 13:30 Dextrose (D50w Syringe) 50 ml Q15M PRN IV DECREASED GLUCOSE; Start 10/04/16 at 13:30 Glucagon (Glucagen) 1 mg Q15M PRN IM DECREASED GLUCOSE; Start 10/04/16 at 13:30 Glucose (Glutose) 15 gm Q15M PRN BUCCAL DECREASED GLUCOSE; Start 10/04/16 at 13: 30 Insulin Glargine (Lantus) 8 unit DAILY@20 SC Last administered on 10/04/16 13: 37; Admin Dose 8 UNIT; Start 10/04/16 at 14:00 Alprazolam (Xanax) 0.25 mg Q12H PRN PO ANXIETY Last administered on 10/04/16 17 :13; Admin Dose 0.25 MG; Start 10/04/16 at 17:00 JERICHO NINA MD Oct 05, 2016 16:14
[2016-10-05] MEDS: LEVOFLOXACIN 500MG/D5W (PMX) 100 ML IVPB SCH (19:00)
[2016-10-05] MEDS: ALPRAZOLAM 0.25 MG TAB PO PRN (20:49)
[2016-10-05] MEDS: INSULIN GLARGINE [LANtus] 3 ML PEN SC SCH (20:54)
[2016-10-06] VITALS (12 sets, daily range): BP systolic 114–138; BP diastolic 60–85; PULSE 77–110; RESP 15–20
[2016-10-06] MEDS: ACCUCHECK XX SCH (06:26)
[2016-10-06] MEDS: PANTOPRAZOLE 40 MG INJ IV SCH (06:26)
[2016-10-06 08:48] LABS: ADD SCAN DIFF NO
[2016-10-06 08:52] LABS: BASOPHILS % 0.3 % (0.0-2.0); EOSINOPHILS % 0.3 % (0.0-7.0); HEMOGLOBIN 11.5 g/dl (14.0-18.0); LYMPHOCYTES # 1.9 10^3/ul (0.8-2.9); LYMPHOCYTES % 16.3 % (15.0-51.0); MEAN CORPUSCULAR HEMOGLOBIN 31.2 pg (29.0-33.0); MEAN CORPUSCULAR HGB CONC 33.9 g/dl (32.0-37.0); MEAN PLATELET VOLUME 8.2 fl (7.4-10.4); MONOCYTE # 1.5 10^3/ul (0.3-0.9); MONOCYTES % 12.8 % (0.0-11.0); NEUTROPHIL # 8.3 10^3/ul (1.6-7.5); NEUTROPHILS % 70.3 % (39.0-77.0); PLATELET COUNT 173 10^3/UL (140-440); RED CELL DISTRIBUTION WIDTH 13.4 % (11.5-14.5); WHITE BLOOD COUNT 11.8 10^3/ul (4.8-10.8)
[2016-10-06] MEDS: INSULIN ASPART [NOVOLOG] 3 ML PEN SC SCH ×4 (08:55→20:58)
[2016-10-06] MEDS: ASPIRIN (EC) 325 MG TAB PO SCH (09:04)
[2016-10-06 09:05] LABS: POTASSIUM 3.3 mmol/L (3.5-5.1)
[2016-10-06] MEDS: METOPROLOL 50 MG TAB PO SCH ×2 (09:05→20:51)
[2016-10-06 09:07] LABS: CREATININE 0.79 mg/dl (0.61-1.24)
[2016-10-06 09:08] LABS: CALCIUM 8.2 mg/dl (8.4-10.2)
[2016-10-06] MEDS: ENOXAPARIN 40 MG/0.4 ML SYG SC SCH (09:12)
[2016-10-06] MEDS: ENALAPRIL 20 MG TAB PO SCH (11:52)
--- NOTE | 2016-10-06 13:41 | CONS ---
Date/Time of Note Date/Time of Note DATE: 10/06/16 TIME: 13:38 Assessment/Plan Assessment/Plan Chief Complaint/Hosp Course Imp: 1.Cad s/p Cabg x 6 vesels POD #4 2.PAD with nonhealing toe ulcer 3.HTN 4.DM 5. Dyslipidemia Recc: -Tele -continue asa -Continue ACEI/BB and will hydralazine given marginal BP -Follow volume status closely and will give lasix diuresis today -Routine post-op care -Remove any unneccesary lines/follow WBC closely -Local wound care to toe Problems: Consultation Date/Type/Reason Admit Date/Time Sep 27, 2016 at 10:27 Initial Consult Date 09/27/2016 Type of Consultation: Cardiology Reason for Consultation cabg Referring Provider: JERICHO NINA MD Exam/Review of Systems Vital Signs Vitals Vital Signs Date Time Temp Pulse Resp B/P Pulse Ox O2 Delivery O2 Flow Rate FiO2 10/06/16 11:49 98.3 75 18 114/70 100 10/06/16 08:00 3.0 10/06/16 04:00 Nasal Cannula Intake and Output 10/05/16 10/05/16 10/06/16 15:00 23:00 07:00 Intake Total 510 ml 240 ml Output Total 1375 ml Balance 510 ml -1135 ml Exam Review of Systems: CONSTITUTIONAL: No fevers, chills. PULMONARY: No sob CARDIOVASCULAR: No chest pain/palpitations GASTROINTESTINAL: No nausea/vomiting. GENITOURINARY: No hematuria/dysuria. MUSCULOSKELETAL: No myagias/arthalgias. PSYCHIATRIC: The patient denies depression. NEUROLOGIC: No weakness Constitutional: alert, oriented Psych: no complaints Head: normocephalic ENMT: mucosa pink and moist Neck: jvd (9 cm water), supple Respiratory: diminished breath sounds (at bases/B) Cardiovascular: regular rate and rhythm Gastrointestinal: non-tender, soft Musculoskeletal: muscle tone (normal) Extremities: edema (bilateral) Neurological: other (No focal deficits) Results Result Diagram: 10/06/16 0805 10/06/16 0805 Results 24 hrs Laboratory Tests Test 10/05/16 17:22 10/05/16 20:53 10/06/16 06:31 10/06/16 07:54 Bedside Glucose 138 194 118 120 Test 10/06/16 08:05 10/06/16 11:51 Anion Gap 14 Basophils # 0.0 Basophils % 0.3 Blood Urea Nitrogen 21 H Calcium Level 8.2 L Carbon Dioxide Level 25 Chloride Level 101 Creatinine 0.79 Eosinophils # 0.0 Eosinophils % 0.3 Glucose Level 110 # Hematocrit 34.0 L Hemoglobin 11.5 L Lymphocytes # 1.9 Lymphocytes % 16.3 Mean Corpuscular Hemoglobin 31.2 Mean Corpuscular Hemoglobin Concent 33.9 Mean Corpuscular Volume 92.0 Mean Platelet Volume 8.2 # Monocytes # 1.5 H Monocytes % 12.8 H Neutrophils # 8.3 H Neutrophils % 70.3 Nucleated Red Blood Cells # 0.0 Nucleated Red Blood Cells % 0.0 Platelet Count 173 # Potassium Level 3.3 L Red Blood Count 3.70 L Red Cell Distribution Width 13.4 Sodium Level 137 White Blood Count 11.8 H Bedside Glucose 166 Medications Medications Current Medications Morphine Sulfate (morphine) 2 mg Q2H PRN IV FOR NON CARDIAC PAIN (4-10) Last administered on 10/04/16 01:18; Admin Dose 2 MG; Start 09/27/16 at 10:30 Al Hydrox/Mg Hydrox/Simethicone (Mag-Al Plus) 30 ml Q4H PRN PO GASTROINTESTINAL UPSET; Start 09/27/16 at 10:30 Enalapril Maleate (Vasotec) 20 mg DAILY PO Last administered on 10/05/16 08:39 ; Admin Dose 20 MG; Start 09/28/16 at 09:00 Ondansetron HCl (Zofran Inj) 4 mg Q6H PRN IV NAUSEA AND/OR VOMITING; Start 09/27 at 18:30 Acetaminophen (Tylenol Tab) 650 mg Q6H PRN PO PAIN LEVEL 1-3 OR FEVER; Start at 18:30 Acetaminophen/ Hydrocodone Bitart ([place] (5/325)) 1 tab Q6H PRN PO MODERATE PAIN LEVEL 4-6 Last administered on 10/05/16 23:15; Admin Dose 1 TAB; Start 09/27/16 at 18:30 Docusate Sodium (Colace) 100 mg Q12H PRN PO CONSTIPATION; Start 09/27/16 at 18: 30 Magnesium Hydroxide (Milk Of Mag) 30 ml DAILY PRN PO CONSTIPATION; Start at 18:30 Bisacodyl (Dulcolax) 5 mg DAILY PRN PO CONSTIPATION Last administered on 08:39; Admin Dose 5 MG; Start 09/27/16 at 18:30 Hydralazine HCl (Apresoline) 25 mg TID PO Last administered on 10/06/16 09:04 ; Admin Dose 25 MG; Start 09/28/16 at 21:00 Dextrose (D50w Syringe) 25 ml Q15M PRN IV Till BS 80 mg/dL or above x2; Start 10/01/16 at 15:30 Dextrose (D50w Syringe) 50 ml Q15M PRN IV Till BS 80 mg/dL or above x2; Start 10/01/16 at 15:30 Pantoprazole (Protonix Iv) 40 mg DAILY@06 IV Last administered on 10/06/16 06: 26; Admin Dose 40 MG; Start 10/02/16 at 06:00 Lorazepam (Ativan) 1 mg BID PRN PO ANXIETY Last administered on 10/04/16 20:19 ; Admin Dose 1 MG; Start 10/03/16 at 10:30 Aspirin 325 mg 325 mg DAILY PO Last administered on 10/06/16 09:04; Admin Dose 325 MG; Start 10/04/16 at 09:00 Levofloxacin/ Dextrose (Levaquin 500mg/ D5W 100 ml (Pmx)) 100 ml @ 100 mls/hr Q24H IVPB Last administered on 10/05/16 19:00; Admin Dose 100 MLS/HR; Start at 18:30 Metoprolol Tartrate (Lopressor) 50 mg BID PO Last administered on 10/06/16 09: 05; Admin Dose 50 MG; Start 10/04/16 at 21:00 Diagnostic Test (Pha) (Accucheck) 1 ea 02 XX Last administered on 10/06/16 06: 26; Admin Dose 1 EA; Start 10/05/16 at 02:00 Miscellaneous Information 1 ea NOTE XX ; Start 10/04/16 at 13:30 Glucose (Glutose) 15 gm Q15M PRN PO DECREASED GLUCOSE; Start 10/04/16 at 13:30 Glucose (Glutose) 22.5 gm Q15M PRN PO DECREASED GLUCOSE; Start 10/04/16 at 13:30 Dextrose (D50w Syringe) 25 ml Q15M PRN IV DECREASED GLUCOSE; Start 10/04/16 at 13:30 Dextrose (D50w Syringe) 50 ml Q15M PRN IV DECREASED GLUCOSE; Start 10/04/16 at 13:30 Glucagon (Glucagen) 1 mg Q15M PRN IM DECREASED GLUCOSE; Start 10/04/16 at 13:30 Glucose (Glutose) 15 gm Q15M PRN BUCCAL DECREASED GLUCOSE; Start 10/04/16 at 13: 30 Insulin Glargine (Lantus) 8 unit DAILY@20 SC Last administered on 10/05/16 20: 54; Admin Dose 8 UNIT; Start 10/04/16 at 14:00 Alprazolam (Xanax) 0.25 mg Q12H PRN PO ANXIETY Last administered on 10/05/16 20:49; Admin Dose 0.25 MG; Start 10/04/16 at 17:00 Enoxaparin Sodium (Lovenox) 40 mg DAILY SC Last administered on 10/06/16 09:12 ; Admin Dose 40 MG; Start 10/06/16 at 09:00 LORI CASTREJON Oct 06, 2016 13:40
[2016-10-06] MEDS: LEVOFLOXACIN 500MG/D5W (PMX) 100 ML IVPB SCH (17:46)
--- NOTE | 2016-10-06 18:15 | PN ---
Date/Time of Note Date/Time of Note DATE: 10/06/16 TIME: 18:14 Assessment/Plan Lines/Catheters IV Catheter Type (from Nrsg): Saline Lock Bautista in Place (from Nrsg): No Assessment/Plan Chief Complaint/Hosp Course IMPRESSION: 1. Coronary artery disease. 2. Peripheral vascular disease. 3. Left toe ulcer. SP CABG Supp Tx supp tx EMRE mobilize Problems: Subjective 24 Hr Interval Summary Constitutional: improved Pain Control: mild Exam/Review of Systems Vital Signs Vitals Vital Signs Date Time Temp Pulse Resp B/P Pulse Ox O2 Delivery O2 Flow Rate FiO2 10/06/16 17:57 2.0 10/06/16 16:26 97.8 86 19 125/71 98 10/06/16 04:00 Nasal Cannula Intake and Output 10/05/16 10/05/16 10/06/16 15:00 23:00 07:00 Intake Total 510 ml 240 ml Output Total 1375 ml Balance 510 ml -1135 ml Exam Respiratory: clear to auscultation, normal air movement Cardiovascular: nl pulses, regular rate and rhythm Gastrointestinal: nl liver, spleen, non-tender, soft Results Result Diagram: 10/06/1680410/06/16804 CONSTANZA AWAD MD Oct 06, 2016 18:15
--- NOTE | 2016-10-06 18:43 | PN ---
Date/Time of Note Date/Time of Note DATE: 10/06/16 TIME: 18:39 Assessment/Plan VTE Prophylaxis VTE Prophylaxis Intervention: other Assessment/Plan Assessment/Plan Chief Complaint/Hosp Course A/P DM HTN S/P CATH POSITIVE FOR CAD PVD 1. Coronary artery bypass grafting x6, left internal mammary artery to left anterior descending, saphenous vein graft to the first diagonal branch of the left anterior descending, saphenous vein graft to the second diagonal branch of the LAD in a wide fashion. 2. Saphenous vein graft to the obtuse marginal branch of the circumflex. 3. Saphenous vein graft to the posterior descending artery. 4. Saphenous vein graft to the posterolateral artery in an open fashion at the bifurcation. 5. Right coronary endarterectomy. 6. Right coronary endarterectomy. 7. Left anterior descending endarterectomy. 8. Saphenous vein harvest from the left lower extremity. 9. Thymectomy 10 leucocytosis 11 abn lft [id number] sob upon ambulation l big toe skin bluish d/w family Subjective 24 Hr Interval Summary Constitutional: improved Exam/Review of Systems Vital Signs Vitals Vital Signs Date Time Temp Pulse Resp B/P Pulse Ox O2 Delivery O2 Flow Rate FiO2 10/06/16 17:57 2.0 10/06/16 16:27 90 10/06/16 16:26 97.8 19 125/71 98 10/06/16 04:00 Nasal Cannula Intake and Output 10/05/16 10/05/16 10/06/16 15:00 23:00 07:00 Intake Total 510 ml 240 ml Output Total 1375 ml Balance 510 ml -1135 ml Exam Constitutional: alert, oriented Eyes: nl conjunctiva Neck: supple Respiratory: clear to auscultation, normal air movement Cardiovascular: regular rate and rhythm Gastrointestinal: nl liver, spleen, soft Extremities: normal pulses Neurological: PELT GRADER II-XII intact, nl mental status Results Result Diagram: 10/06/1680410/06/16 08 Results 24 hrs Laboratory Tests Test 10/05/16 20:53 10/06/16 06:31 10/06/16 07:54 10/06/16 08:05 Bedside Glucose 194 118 120 Anion Gap 14 Basophils # 0.0 Basophils % 0.3 Blood Urea Nitrogen 21 H Calcium Level 8.2 L Carbon Dioxide Level 25 Chloride Level 101 Creatinine 0.79 Eosinophils # 0.0 Eosinophils % 0.3 Glucose Level 110 # Hematocrit 34.0 L Hemoglobin 11.5 L Lymphocytes # 1.9 Lymphocytes % 16.3 Mean Corpuscular Hemoglobin 31.2 Mean Corpuscular Hemoglobin Concent 33.9 Mean Corpuscular Volume 92.0 Mean Platelet Volume 8.2 # Monocytes # 1.5 H Monocytes % 12.8 H Neutrophils # 8.3 H Neutrophils % 70.3 Nucleated Red Blood Cells # 0.0 Nucleated Red Blood Cells % 0.0 Platelet Count 173 # Potassium Level 3.3 L Red Blood Count 3.70 L Red Cell Distribution Width 13.4 Sodium Level 137 White Blood Count 11.8 H Test 10/06/16 11:51 10/06/16 17:17 Bedside Glucose 166 184 Medications Medications Current Medications Morphine Sulfate (morphine) 2 mg Q2H PRN IV FOR NON CARDIAC PAIN (4-10) Last administered on 10/04/16 01:18; Admin Dose 2 MG; Start 09/27/16 at 10:30 Al Hydrox/Mg Hydrox/Simethicone (Mag-Al Plus) 30 ml Q4H PRN PO GASTROINTESTINAL UPSET; Start 09/27/16 at 10:30 Enalapril Maleate (Vasotec) 20 mg DAILY PO Last administered on 10/05/16 08:39 ; Admin Dose 20 MG; Start 09/28/16 at 09:00 Ondansetron HCl (Zofran Inj) 4 mg Q6H PRN IV NAUSEA AND/OR VOMITING; Start 09/27 at 18:30 Acetaminophen (Tylenol Tab) 650 mg Q6H PRN PO PAIN LEVEL 1-3 OR FEVER; Start at 18:30 Acetaminophen/ Hydrocodone Bitart ([place] (5/325)) 1 tab Q6H PRN PO MODERATE PAIN LEVEL 4-6 Last administered on 10/05/16 23:15; Admin Dose 1 TAB; Start 09/27/16 at 18:30 Docusate Sodium (Colace) 100 mg Q12H PRN PO CONSTIPATION; Start 09/27/16 at 18: 30 Magnesium Hydroxide (Milk Of Mag) 30 ml DAILY PRN PO CONSTIPATION; Start at 18:30 Bisacodyl (Dulcolax) 5 mg DAILY PRN PO CONSTIPATION Last administered on 2/10/ 17at 08:39; Admin Dose 5 MG; Start 09/27/16 at 18:30 Hydralazine HCl (Apresoline) 25 mg TID PO Last administered on 10/06/16 09:04 ; Admin Dose 25 MG; Start 09/28/16 at 21:00; Status Future Hold Dextrose (D50w Syringe) 25 ml Q15M PRN IV Till BS 80 mg/dL or above x2; Start 10/01/16 at 15:30 Dextrose (D50w Syringe) 50 ml Q15M PRN IV Till BS 80 mg/dL or above x2; Start 10/01/16 at 15:30 Pantoprazole (Protonix Iv) 40 mg DAILY@06 IV Last administered on 10/06/16 06: 26; Admin Dose 40 MG; Start 10/02/16 at 06:00 Lorazepam (Ativan) 1 mg BID PRN PO ANXIETY Last administered on 10/04/16 20:19 ; Admin Dose 1 MG; Start 10/03/16 at 10:30 Aspirin 325 mg 325 mg DAILY PO Last administered on 10/06/16 09:04; Admin Dose 325 MG; Start 10/04/16 at 09:00 Levofloxacin/ Dextrose (Levaquin 500mg/ D5W 100 ml (Pmx)) 100 ml @ 100 mls/hr Q24H IVPB Last administered on 10/06/16 17:46; Admin Dose 100 MLS/HR; Start at 18:30 Metoprolol Tartrate (Lopressor) 50 mg BID PO Last administered on 10/06/16 09: 05; Admin Dose 50 MG; Start 10/04/16 at 21:00 Diagnostic Test (Pha) (Accucheck) 1 ea 02 XX Last administered on 10/06/16 06: 26; Admin Dose 1 EA; Start 10/05/16 at 02:00 Miscellaneous Information 1 ea NOTE XX ; Start 10/04/16 at 13:30 Glucose (Glutose) 15 gm Q15M PRN PO DECREASED GLUCOSE; Start 10/04/16 at 13:30 Glucose (Glutose) 22.5 gm Q15M PRN PO DECREASED GLUCOSE; Start 10/04/16 at 13:30 Dextrose (D50w Syringe) 25 ml Q15M PRN IV DECREASED GLUCOSE; Start 10/04/16 at 13:30 Dextrose (D50w Syringe) 50 ml Q15M PRN IV DECREASED GLUCOSE; Start 10/04/16 at 13:30 Glucagon (Glucagen) 1 mg Q15M PRN IM DECREASED GLUCOSE; Start 10/04/16 at 13:30 Glucose (Glutose) 15 gm Q15M PRN BUCCAL DECREASED GLUCOSE; Start 10/04/16 at 13: 30 Insulin Glargine (Lantus) 8 unit DAILY@20 SC Last administered on 10/05/16 20: 54; Admin Dose 8 UNIT; Start 10/04/16 at 14:00 Alprazolam (Xanax) 0.25 mg Q12H PRN PO ANXIETY Last administered on 10/05/16 20:49; Admin Dose 0.25 MG; Start 10/04/16 at 17:00 Enoxaparin Sodium (Lovenox) 40 mg DAILY SC Last administered on 10/06/16 09:12 ; Admin Dose 40 MG; Start 10/06/16 at 09:00 Furosemide (Lasix) 20 mg DAILY IV ; Start 10/07/16 at 09:00 EBENEZER GUARDADO MD Oct 06, 2016 18:42
[2016-10-06] MEDS: HYDROCODONE/APAP (5/325) TAB PO PRN (20:01)
[2016-10-06] MEDS: INSULIN GLARGINE [LANtus] 3 ML PEN SC SCH (21:00)
[2016-10-07] VITALS (11 sets, daily range): BP systolic 105–148; BP diastolic 60–84; PULSE 85–110; RESP 18–20
[2016-10-07] MEDS: ACCUCHECK XX SCH (02:00)
[2016-10-07] MEDS: PANTOPRAZOLE 40 MG INJ IV SCH (05:17)
[2016-10-07 07:29] LABS: BASOPHILS % 0.1 % (0.0-2.0); EOSINOPHILS # 0.1 10^3/ul (0.0-0.5); EOSINOPHILS % 0.7 % (0.0-7.0); HEMATOCRIT 31.9 % (42.0-52.0); HEMOGLOBIN 10.9 g/dl (14.0-18.0); LYMPHOCYTES # 1.9 10^3/ul (0.8-2.9); LYMPHOCYTES % 14.2 % (15.0-51.0); MEAN CORPUSCULAR HEMOGLOBIN 31.5 pg (29.0-33.0); MEAN CORPUSCULAR VOLUME 92.7 fl (82.0-101.0); MEAN PLATELET VOLUME 8.4 fl (7.4-10.4); MONOCYTE # 1.5 10^3/ul (0.3-0.9); NEUTROPHIL # 9.8 10^3/ul (1.6-7.5); PLATELET COUNT 173 10^3/UL (140-440); RED BLOOD COUNT 3.44 10^6/ul (4.70-6.10); RED CELL DISTRIBUTION WIDTH 13.4 % (11.5-14.5); UNCORRECTED WBC 13.2 10^3/ul (4.8-10.8); WHITE BLOOD COUNT 13.2 10^3/ul (4.8-10.8)
[2016-10-07 07:32] LABS: ALBUMIN 3.1 g/dl (3.3-4.9)
[2016-10-07 07:33] LABS: POTASSIUM 3.3 mmol/L (3.5-5.1)
[2016-10-07 07:35] LABS: BILIRUBIN,INDIRECT 0.8 mg/dl (0-1.1); BILIRUBIN,TOTAL 0.8 mg/dl (0.2-1.3); CREATININE 0.74 mg/dl (0.61-1.24)
[2016-10-07 07:36] LABS: ALBUMIN/GLOBULIN RATIO 1.1; TOTAL PROTEIN 5.9 g/dl (6.1-8.1)
[2016-10-07 07:39] LABS: CONDITION 1
[2016-10-07] MEDS: METOPROLOL 50 MG TAB PO SCH ×2 (08:24→21:40)
[2016-10-07] MEDS: ASPIRIN (EC) 325 MG TAB PO SCH (08:24)
[2016-10-07] MEDS: ENALAPRIL 20 MG TAB PO SCH (08:24)
[2016-10-07] MEDS: INSULIN ASPART [NOVOLOG] 3 ML PEN SC SCH ×4 (08:27→21:00)
[2016-10-07] MEDS: ENOXAPARIN 40 MG/0.4 ML SYG SC SCH (08:30)
[2016-10-07] MEDS: HYDROCODONE/APAP (5/325) TAB PO PRN (08:41)
[2016-10-07] MEDS ORDERED: FUROSEMIDE 20 MG INJ IV SCH (09:00)
[2016-10-07] MEDS ORDERED: ZOLPIDEM 5 MG TAB PO PRN (11:00)
--- NOTE | 2016-10-07 11:23 | PN ---
Date/Time of Note Date/Time of Note DATE: 10/07/16 TIME: 11:22 Assessment/Plan Lines/Catheters IV Catheter Type (from Nrsg): Saline Lock Bautista in Place (from Nrsg): No Assessment/Plan Chief Complaint/Hosp Course IMPRESSION: 1. Coronary artery disease. 2. Peripheral vascular disease. 3. Left toe ulcer. SP CABG Supp Tx DC Planning mobilize Problems: Subjective 24 Hr Interval Summary Constitutional: improved Pain Control: mild Exam/Review of Systems Vital Signs Vitals Vital Signs Date Time Temp Pulse Resp B/P Pulse Ox O2 Delivery O2 Flow Rate FiO2 10/07/16 10:20 Nasal Cannula 3.0 10/07/16 08:44 99 10/07/16 08:01 98.2 18 148/65 100 Intake and Output 10/06/16 10/06/16 10/07/16 15:00 23:00 07:00 Intake Total 300 ml 740 ml 250 ml Output Total 700 ml 1550 ml 950 ml Balance -400 ml -810 ml -700 ml Exam Neck: non-tender, supple Respiratory: clear to auscultation, normal air movement Cardiovascular: nl pulses, regular rate and rhythm Gastrointestinal: nl liver, spleen, non-tender, soft Results Result Diagram: 10/07/1660410/07/16604 CONSTANZA AWAD MD Oct 07, 2016 11:23
[2016-10-07] MEDS ORDERED: POTASSIUM CHLORIDE (SR) 20 MEQ TAB PO STA (12:56)
--- NOTE | 2016-10-07 12:56 | CONS ---
Date/Time of Note Date/Time of Note DATE: 10/07/16 TIME: 12:53 Assessment/Plan Assessment/Plan Chief Complaint/Hosp Course Imp: 1.Cad s/p Cabg x 6 vesels POD #5 2.PAD with nonhealing toe ulcer 3.HTN 4.DM 5. Dyslipidemia 6. LFT's-mildly increased Recc: -Tele -continue asa -Continue ACEI/BB and will hydralazine given marginal BP -Follow volume status closely and increase lasix diuresis to bid -Routine post-op care -Remove any unneccesary lines/follow WBC closely -Local wound care to toe Problems: Consultation Date/Type/Reason Admit Date/Time Sep 27, 2016 at 10:27 Initial Consult Date 09/27/2016 Type of Consultation: Cardiology Reason for Consultation cad Referring Provider: JERICHO NINA MD Exam/Review of Systems Vital Signs Vitals Vital Signs Date Time Temp Pulse Resp B/P Pulse Ox O2 Delivery O2 Flow Rate FiO2 10/07/16 12:26 85 10/07/16 11:42 97.9 20 105/60 98 10/07/16 10:20 Nasal Cannula 3.0 Intake and Output 10/06/16 10/06/16 10/07/16 15:00 23:00 07:00 Intake Total 300 ml 740 ml 250 ml Output Total 700 ml 1550 ml 950 ml Balance -400 ml -810 ml -700 ml Exam Review of Systems: CONSTITUTIONAL: No fevers, chills. PULMONARY: No sob CARDIOVASCULAR: No chest pain/palpitations GASTROINTESTINAL: No nausea/vomiting. GENITOURINARY: No hematuria/dysuria. MUSCULOSKELETAL: Pain in toe PSYCHIATRIC: The patient denies depression. NEUROLOGIC: No weakness Constitutional: alert, oriented Psych: no complaints Head: normocephalic ENMT: mucosa pink and moist Neck: jvd (9 cm water), supple Respiratory: diminished breath sounds (at bases/B) Cardiovascular: other (midline sternotomy c/d/i), regular rate and rhythm Gastrointestinal: non-tender, soft Musculoskeletal: muscle tone (normal) Extremities: pitting pedal edema (trace/incision c/d/i) Results Result Diagram: 10/07/16 0605 10/07/16 0605 Results 24 hrs Laboratory Tests Test 10/06/16 17:17 10/06/16 20:50 10/07/16 06:05 10/07/16 07:27 Bedside Glucose 184 203 149 Alanine Aminotransferase (ALT/SGPT) 251 H Albumin 3.1 L Albumin/Globulin Ratio 1.10 Alkaline Phosphatase 149 H Anion Gap 16 Aspartate Amino Transf (AST/SGOT) 80 H Basophils # 0.0 Basophils % 0.1 Blood Urea Nitrogen 18 Calcium Level 8.0 L Carbon Dioxide Level 22 Chloride Level 101 Creatinine 0.74 Direct Bilirubin 0.00 Eosinophils # 0.1 Eosinophils % 0.7 Globulin 2.80 Glucose Level 108 Hematocrit 31.9 L Hemoglobin 10.9 L Indirect Bilirubin 0.8 Lymphocytes # 1.9 Lymphocytes % 14.2 L Mean Corpuscular Hemoglobin 31.5 Mean Corpuscular Hemoglobin Concent 34.0 Mean Corpuscular Volume 92.7 Mean Platelet Volume 8.4 Monocytes # 1.5 H Monocytes % 11.0 Neutrophils # 9.8 H Neutrophils % 74.0 Nucleated Red Blood Cells # 0.0 Nucleated Red Blood Cells % 0.0 Platelet Count 173 Potassium Level 3.3 L Red Blood Count 3.44 L Red Cell Distribution Width 13.4 Sodium Level 136 Total Bilirubin 0.8 Total Protein 5.9 L White Blood Count 13.2 H Test 10/07/16 12:00 Bedside Glucose 164 Medications Medications Current Medications Morphine Sulfate (morphine) 2 mg Q2H PRN IV FOR NON CARDIAC PAIN (4-10) Last administered on 10/04/16 01:18; Admin Dose 2 MG; Start 09/27/16 at 10:30 Al Hydrox/Mg Hydrox/Simethicone (Mag-Al Plus) 30 ml Q4H PRN PO GASTROINTESTINAL UPSET; Start 09/27/16 at 10:30 Enalapril Maleate (Vasotec) 20 mg DAILY PO Last administered on 10/07/16 08:24 ; Admin Dose 20 MG; Start 09/28/16 at 09:00 Ondansetron HCl (Zofran Inj) 4 mg Q6H PRN IV NAUSEA AND/OR VOMITING; Start 09/27 at 18:30 Acetaminophen (Tylenol Tab) 650 mg Q6H PRN PO PAIN LEVEL 1-3 OR FEVER; Start at 18:30 Acetaminophen/ Hydrocodone Bitart ([place] (5/325)) 1 tab Q6H PRN PO MODERATE PAIN LEVEL 4-6 Last administered on 10/07/16 08:41; Admin Dose 1 TAB; Start 09/27/16 at 18:30 Docusate Sodium (Colace) 100 mg Q12H PRN PO CONSTIPATION; Start 09/27/16 at 18: 30 Magnesium Hydroxide (Milk Of Mag) 30 ml DAILY PRN PO CONSTIPATION; Start at 18:30 Bisacodyl (Dulcolax) 5 mg DAILY PRN PO CONSTIPATION Last administered on 08:39; Admin Dose 5 MG; Start 09/27/16 at 18:30 Hydralazine HCl (Apresoline) 25 mg TID PO Last administered on 10/06/16 09:04 ; Admin Dose 25 MG; Start 09/28/16 at 21:00; Status Future Hold Pantoprazole (Protonix Iv) 40 mg DAILY@06 IV Last administered on 10/07/16 05: 17; Admin Dose 40 MG; Start 10/02/16 at 06:00 Lorazepam (Ativan) 1 mg BID PRN PO ANXIETY Last administered on 10/04/16 20:19 ; Admin Dose 1 MG; Start 10/03/16 at 10:30 Aspirin 325 mg 325 mg DAILY PO Last administered on 10/07/16 08:24; Admin Dose 325 MG; Start 10/04/16 at 09:00 Levofloxacin/ Dextrose (Levaquin 500mg/ D5W 100 ml (Pmx)) 100 ml @ 100 mls/hr Q24H IVPB Last administered on 10/06/16 17:46; Admin Dose 100 MLS/HR; Start at 18:30 Metoprolol Tartrate (Lopressor) 50 mg BID PO Last administered on 10/07/16 08: 24; Admin Dose 50 MG; Start 10/04/16 at 21:00 Diagnostic Test (Pha) (Accucheck) 1 ea 02 XX Last administered on 10/06/16 06: 26; Admin Dose 1 EA; Start 10/05/16 at 02:00 Miscellaneous Information 1 ea NOTE XX ; Start 10/04/16 at 13:30 Glucose (Glutose) 15 gm Q15M PRN PO DECREASED GLUCOSE; Start 10/04/16 at 13:30 Glucose (Glutose) 22.5 gm Q15M PRN PO DECREASED GLUCOSE; Start 10/04/16 at 13:30 Dextrose (D50w Syringe) 25 ml Q15M PRN IV DECREASED GLUCOSE; Start 10/04/16 at 13:30 Dextrose (D50w Syringe) 50 ml Q15M PRN IV DECREASED GLUCOSE; Start 10/04/16 at 13:30 Glucagon (Glucagen) 1 mg Q15M PRN IM DECREASED GLUCOSE; Start 10/04/16 at 13:30 Glucose (Glutose) 15 gm Q15M PRN BUCCAL DECREASED GLUCOSE; Start 10/04/16 at 13: 30 Insulin Glargine (Lantus) 8 unit DAILY@20 SC Last administered on 10/06/16 21: 00; Admin Dose 8 UNIT; Start 10/04/16 at 14:00 Alprazolam (Xanax) 0.25 mg Q12H PRN PO ANXIETY Last administered on 10/05/16 20:49; Admin Dose 0.25 MG; Start 10/04/16 at 17:00 Enoxaparin Sodium (Lovenox) 40 mg DAILY SC Last administered on 10/07/16 08:30 ; Admin Dose 40 MG; Start 10/06/16 at 09:00 Furosemide (Lasix) 20 mg DAILY IV Last administered on 10/07/16 08:25; Admin Dose 20 MG; Start 10/07/16 at 09:00 Zolpidem Tartrate (Ambien) 5 mg HS PRN PO INSOMNIA; Start 10/07/16 at 11:00 LORI CASTREJON Oct 07, 2016 12:56
[2016-10-07] MEDS: FUROSEMIDE 20 MG INJ IV SCH (17:35)
[2016-10-07] MEDS: LEVOFLOXACIN 500MG/D5W (PMX) 100 ML IVPB SCH (17:35)
--- NOTE | 2016-10-07 18:48 | PN ---
Date/Time of Note Date/Time of Note DATE: 10/07/16 TIME: 18:46 Assessment/Plan VTE Prophylaxis VTE Prophylaxis Intervention: other Lines/Catheters Urinary Cath still in place: No Assessment/Plan Chief Complaint/Hosp Course Chief Complaint/Hosp Course A/P DM HTN S/P CATH POSITIVE FOR CAD PVD 1. Coronary artery bypass grafting x6, left internal mammary artery to left anterior descending, saphenous vein graft to the first diagonal branch of the left anterior descending, saphenous vein graft to the second diagonal branch of the LAD in a wide fashion. 2. Saphenous vein graft to the obtuse marginal branch of the circumflex. 3. Saphenous vein graft to the posterior descending artery. 4. Saphenous vein graft to the posterolateral artery in an open fashion at the bifurcation. 5. Right coronary endarterectomy. 6. Right coronary endarterectomy. 7. Left anterior descending endarterectomy. 8. Saphenous vein harvest from the left lower extremity. 9. Thymectomy 10 leucocytosis 11 abn lft [id number] sob upon ambulation l big toe skin bluish d/w family [id number] vascular f/u noted Problems: Exam/Review of Systems Vital Signs Vitals Vital Signs Date Time Temp Pulse Resp B/P Pulse Ox O2 Delivery O2 Flow Rate FiO2 10/07/16 16:03 95 10/07/16 15:52 97.5 18 144/84 98 10/07/16 13:51 2.0 10/07/16 10:20 Nasal Cannula Intake and Output 10/06/16 10/06/16 10/07/16 15:00 23:00 07:00 Intake Total 300 ml 740 ml 250 ml Output Total 700 ml 1550 ml 950 ml Balance -400 ml -810 ml -700 ml Exam Constitutional: alert, oriented Neck: supple Respiratory: clear to auscultation Cardiovascular: regular rate and rhythm Gastrointestinal: soft Extremities: normal pulses Results Result Diagram: 10/07/1660410/07/16 06 Results 24 hrs Laboratory Tests Test 10/06/16 20:50 10/07/16 06:05 10/07/16 07:27 10/07/16 12:00 Bedside Glucose 203 149 164 Alanine Aminotransferase (ALT/SGPT) 251 H Albumin 3.1 L Albumin/Globulin Ratio 1.10 Alkaline Phosphatase 149 H Anion Gap 16 Aspartate Amino Transf (AST/SGOT) 80 H Basophils # 0.0 Basophils % 0.1 Blood Urea Nitrogen 18 Calcium Level 8.0 L Carbon Dioxide Level 22 Chloride Level 101 Creatinine 0.74 Direct Bilirubin 0.00 Eosinophils # 0.1 Eosinophils % 0.7 Globulin 2.80 Glucose Level 108 Hematocrit 31.9 L Hemoglobin 10.9 L Indirect Bilirubin 0.8 Lymphocytes # 1.9 Lymphocytes % 14.2 L Mean Corpuscular Hemoglobin 31.5 Mean Corpuscular Hemoglobin Concent 34.0 Mean Corpuscular Volume 92.7 Mean Platelet Volume 8.4 Monocytes # 1.5 H Monocytes % 11.0 Neutrophils # 9.8 H Neutrophils % 74.0 Nucleated Red Blood Cells # 0.0 Nucleated Red Blood Cells % 0.0 Platelet Count 173 Potassium Level 3.3 L Red Blood Count 3.44 L Red Cell Distribution Width 13.4 Sodium Level 136 Total Bilirubin 0.8 Total Protein 5.9 L White Blood Count 13.2 H Test 10/07/16 17:05 Bedside Glucose 160 Medications Medications Current Medications Morphine Sulfate (morphine) 2 mg Q2H PRN IV FOR NON CARDIAC PAIN (4-10) Last administered on 10/04/16 01:18; Admin Dose 2 MG; Start 09/27/16 at 10:30 Al Hydrox/Mg Hydrox/Simethicone (Mag-Al Plus) 30 ml Q4H PRN PO GASTROINTESTINAL UPSET; Start 09/27/16 at 10:30 Enalapril Maleate (Vasotec) 20 mg DAILY PO Last administered on 10/07/16 08:24 ; Admin Dose 20 MG; Start 09/28/16 at 09:00 Ondansetron HCl (Zofran Inj) 4 mg Q6H PRN IV NAUSEA AND/OR VOMITING; Start 09/27 at 18:30 Acetaminophen (Tylenol Tab) 650 mg Q6H PRN PO PAIN LEVEL 1-3 OR FEVER; Start at 18:30 Acetaminophen/ Hydrocodone Bitart ([place] (5/325)) 1 tab Q6H PRN PO MODERATE PAIN LEVEL 4-6 Last administered on 10/07/16 08:41; Admin Dose 1 TAB; Start 09/27/16 at 18:30 Docusate Sodium (Colace) 100 mg Q12H PRN PO CONSTIPATION; Start 09/27/16 at 18: 30 Magnesium Hydroxide (Milk Of Mag) 30 ml DAILY PRN PO CONSTIPATION; Start at 18:30 Bisacodyl (Dulcolax) 5 mg DAILY PRN PO CONSTIPATION Last administered on 08:39; Admin Dose 5 MG; Start 09/27/16 at 18:30 Hydralazine HCl (Apresoline) 25 mg TID PO Last administered on 10/06/16 09:04 ; Admin Dose 25 MG; Start 09/28/16 at 21:00; Status Future Hold Pantoprazole (Protonix Iv) 40 mg DAILY@06 IV Last administered on 10/07/16 05: 17; Admin Dose 40 MG; Start 10/02/16 at 06:00 Lorazepam (Ativan) 1 mg BID PRN PO ANXIETY Last administered on 10/04/16 20:19 ; Admin Dose 1 MG; Start 10/03/16 at 10:30 Aspirin 325 mg 325 mg DAILY PO Last administered on 10/07/16 08:24; Admin Dose 325 MG; Start 10/04/16 at 09:00 Levofloxacin/ Dextrose (Levaquin 500mg/ D5W 100 ml (Pmx)) 100 ml @ 100 mls/hr Q24H IVPB Last administered on 10/07/16 17:35; Admin Dose 100 MLS/HR; Start at 18:30 Metoprolol Tartrate (Lopressor) 50 mg BID PO Last administered on 10/07/16 08: 24; Admin Dose 50 MG; Start 10/04/16 at 21:00 Diagnostic Test (Pha) (Accucheck) 1 ea 02 XX Last administered on 10/06/16 06: 26; Admin Dose 1 EA; Start 10/05/16 at 02:00 Miscellaneous Information 1 ea NOTE XX ; Start 10/04/16 at 13:30 Glucose (Glutose) 15 gm Q15M PRN PO DECREASED GLUCOSE; Start 10/04/16 at 13:30 Glucose (Glutose) 22.5 gm Q15M PRN PO DECREASED GLUCOSE; Start 10/04/16 at 13:30 Dextrose (D50w Syringe) 25 ml Q15M PRN IV DECREASED GLUCOSE; Start 10/04/16 at 13:30 Dextrose (D50w Syringe) 50 ml Q15M PRN IV DECREASED GLUCOSE; Start 10/04/16 at 13:30 Glucagon (Glucagen) 1 mg Q15M PRN IM DECREASED GLUCOSE; Start 10/04/16 at 13:30 Glucose (Glutose) 15 gm Q15M PRN BUCCAL DECREASED GLUCOSE; Start 10/04/16 at 13: 30 Insulin Glargine (Lantus) 8 unit DAILY@20 SC Last administered on 10/06/16 21: 00; Admin Dose 8 UNIT; Start 10/04/16 at 14:00 Alprazolam (Xanax) 0.25 mg Q12H PRN PO ANXIETY Last administered on 10/05/16 20:49; Admin Dose 0.25 MG; Start 10/04/16 at 17:00 Enoxaparin Sodium (Lovenox) 40 mg DAILY SC Last administered on 10/07/16 08:30 ; Admin Dose 40 MG; Start 10/06/16 at 09:00 Zolpidem Tartrate (Ambien) 5 mg HS PRN PO INSOMNIA; Start 10/07/16 at 11:00 EBENEZER GUARDADO MD Oct 07, 2016 18:48
[2016-10-07] MEDS: INSULIN GLARGINE [LANtus] 3 ML PEN SC SCH (21:49)
[2016-10-08] VITALS (13 sets, daily range): BP systolic 118–150; BP diastolic 68–85; PULSE 90–110; RESP 17–20
[2016-10-08] MEDS: ACCUCHECK XX SCH (02:00)
[2016-10-08] MEDS: PANTOPRAZOLE 40 MG INJ IV SCH (06:23)
[2016-10-08] MEDS: FUROSEMIDE 20 MG INJ IV SCH ×2 (06:24→17:44)
[2016-10-08] MEDS: INSULIN ASPART [NOVOLOG] 3 ML PEN SC SCH ×4 (07:55→21:23)
[2016-10-08] MEDS: ENALAPRIL 20 MG TAB PO SCH (08:26)
[2016-10-08] MEDS: ASPIRIN (EC) 325 MG TAB PO SCH (08:26)
[2016-10-08] MEDS: METOPROLOL 50 MG TAB PO SCH ×2 (10:44→21:17)
[2016-10-08] MEDS: ENOXAPARIN 40 MG/0.4 ML SYG SC SCH (10:47)
--- NOTE | 2016-10-08 11:39 | CONS ---
Date/Time of Note Date/Time of Note DATE: 10/08/16 TIME: 11:36 Assessment/Plan Assessment/Plan Chief Complaint/Hosp Course Imp: 1.Cad s/p Cabg x 6 vesels POD #6 2.PAD with nonhealing toe ulcer 3.HTN 4.DM 5. Dyslipidemia 6. LFT's-moderately increased but slowly downtrending Recc: -Tele -continue asa -Continue ACEI/BB and follow BP closely -Follow volume status closely s/p increase in lasix diuresis to bid -Routine post-op care -Follow WBC closely -Local wound care to toe -Ambulate Problems: Consultation Date/Type/Reason Admit Date/Time Sep 27, 2016 at 10:27 Initial Consult Date 09/27/2016 Type of Consultation: Cardiology Reason for Consultation cad/cabg Referring Provider: JERICHO NINA MD Exam/Review of Systems Vital Signs Vitals Vital Signs Date Time Temp Pulse Resp B/P Pulse Ox O2 Delivery O2 Flow Rate FiO2 10/08/16 09:43 93 10/08/16 08:16 98.5 18 136/78 93 Room Air 10/08/16 08:04 2.0 Intake and Output 10/07/16 10/07/16 10/08/16 14:59 22:59 06:59 Intake Total 1200 ml 450 ml Output Total 1150 ml 1550 ml Balance 50 ml -1100 ml Exam Review of Systems: CONSTITUTIONAL: No fevers, chills. PULMONARY: mild sob CARDIOVASCULAR: No chest pain/palpitations GASTROINTESTINAL: No nausea/vomiting. GENITOURINARY: No hematuria/dysuria. MUSCULOSKELETAL: Pain in toe PSYCHIATRIC: The patient denies depression. NEUROLOGIC: No weakness Constitutional: alert, oriented Psych: no complaints Head: normocephalic ENMT: mucosa pink and moist Neck: jvd (9 cm water), supple Respiratory: diminished breath sounds (at bases/B) Cardiovascular: regular rate and rhythm Gastrointestinal: non-tender, soft Musculoskeletal: muscle tone (normal) Extremities: other (gangrenous hcnages of toes), pitting pedal edema (trace/B) Neurological: other (No focal defiicts) Results Result Diagram: 10/07/16 0605 10/07/16 0605 Results 24 hrs Laboratory Tests Test 10/07/16 12:00 10/07/16 17:05 10/07/16 21:34 10/08/16 07:45 Bedside Glucose 164 160 180 125 Medications Medications Current Medications Morphine Sulfate (morphine) 2 mg Q2H PRN IV FOR NON CARDIAC PAIN (4-10) Last administered on 10/04/16 01:18; Admin Dose 2 MG; Start 09/27/16 at 10:30 Al Hydrox/Mg Hydrox/Simethicone (Mag-Al Plus) 30 ml Q4H PRN PO GASTROINTESTINAL UPSET; Start 09/27/16 at 10:30 Enalapril Maleate (Vasotec) 20 mg DAILY PO Last administered on 10/08/16 08:26 ; Admin Dose 20 MG; Start 09/28/16 at 09:00 Ondansetron HCl (Zofran Inj) 4 mg Q6H PRN IV NAUSEA AND/OR VOMITING; Start 09/27 at 18:30 Acetaminophen (Tylenol Tab) 650 mg Q6H PRN PO PAIN LEVEL 1-3 OR FEVER; Start at 18:30 Acetaminophen/ Hydrocodone Bitart ([place] (5/325)) 1 tab Q6H PRN PO MODERATE PAIN LEVEL 4-6 Last administered on 10/07/16 08:41; Admin Dose 1 TAB; Start 09/27/16 at 18:30 Docusate Sodium (Colace) 100 mg Q12H PRN PO CONSTIPATION; Start 09/27/16 at 18: 30 Magnesium Hydroxide (Milk Of Mag) 30 ml DAILY PRN PO CONSTIPATION; Start at 18:30 Bisacodyl (Dulcolax) 5 mg DAILY PRN PO CONSTIPATION Last administered on 08:39; Admin Dose 5 MG; Start 09/27/16 at 18:30 Hydralazine HCl (Apresoline) 25 mg TID PO Last administered on 10/06/16 09:04 ; Admin Dose 25 MG; Start 09/28/16 at 21:00; Status Future Hold Pantoprazole (Protonix Iv) 40 mg DAILY@06 IV Last administered on 10/08/16 06: 23; Admin Dose 40 MG; Start 10/02/16 at 06:00 Lorazepam (Ativan) 1 mg BID PRN PO ANXIETY Last administered on 10/04/16 20:19 ; Admin Dose 1 MG; Start 10/03/16 at 10:30 Aspirin 325 mg 325 mg DAILY PO Last administered on 10/08/16 08:26; Admin Dose 325 MG; Start 10/04/16 at 09:00 Levofloxacin/ Dextrose (Levaquin 500mg/ D5W 100 ml (Pmx)) 100 ml @ 100 mls/hr Q24H IVPB Last administered on 10/07/16 17:35; Admin Dose 100 MLS/HR; Start at 18:30 Metoprolol Tartrate (Lopressor) 50 mg BID PO Last administered on 10/08/16 10: 44; Admin Dose 50 MG; Start 10/04/16 at 21:00 Diagnostic Test (Pha) (Accucheck) 1 ea 02 XX Last administered on 10/06/16 06: 26; Admin Dose 1 EA; Start 10/05/16 at 02:00 Miscellaneous Information 1 ea NOTE XX ; Start 10/04/16 at 13:30 Glucose (Glutose) 15 gm Q15M PRN PO DECREASED GLUCOSE; Start 10/04/16 at 13:30 Glucose (Glutose) 22.5 gm Q15M PRN PO DECREASED GLUCOSE; Start 10/04/16 at 13:30 Dextrose (D50w Syringe) 25 ml Q15M PRN IV DECREASED GLUCOSE; Start 10/04/16 at 13:30 Dextrose (D50w Syringe) 50 ml Q15M PRN IV DECREASED GLUCOSE; Start 10/04/16 at 13:30 Glucagon (Glucagen) 1 mg Q15M PRN IM DECREASED GLUCOSE; Start 10/04/16 at 13:30 Glucose (Glutose) 15 gm Q15M PRN BUCCAL DECREASED GLUCOSE; Start 10/04/16 at 13: 30 Insulin Glargine (Lantus) 8 unit DAILY@20 SC Last administered on 10/07/16 21: 49; Admin Dose 8 UNIT; Start 10/04/16 at 14:00 Alprazolam (Xanax) 0.25 mg Q12H PRN PO ANXIETY Last administered on 10/05/16 20:49; Admin Dose 0.25 MG; Start 10/04/16 at 17:00 Enoxaparin Sodium (Lovenox) 40 mg DAILY SC Last administered on 10/08/16 10:47 ; Admin Dose 40 MG; Start 10/06/16 at 09:00 Zolpidem Tartrate (Ambien) 5 mg HS PRN PO INSOMNIA; Start 10/07/16 at 11:00 LORI CASTREJON Oct 08, 2016 11:39
--- NOTE | 2016-10-08 12:36 | PN ---
Date/Time of Note Date/Time of Note DATE: 10/08/16 TIME: 12:35 Assessment/Plan VTE Prophylaxis VTE Prophylaxis Intervention: other Assessment/Plan Chief Complaint/Hosp Course Chief Complaint/Hosp Course A/P DM HTN S/P CATH POSITIVE FOR CAD PVD 1. Coronary artery bypass grafting x6, left internal mammary artery to left anterior descending, saphenous vein graft to the first diagonal branch of the left anterior descending, saphenous vein graft to the second diagonal branch of the LAD in a wide fashion. 2. Saphenous vein graft to the obtuse marginal branch of the circumflex. 3. Saphenous vein graft to the posterior descending artery. 4. Saphenous vein graft to the posterolateral artery in an open fashion at the bifurcation. 5. Right coronary endarterectomy. 6. Right coronary endarterectomy. 7. Left anterior descending endarterectomy. 8. Saphenous vein harvest from the left lower extremity. 9. Thymectomy 10 leucocytosis 11 abn lft [id number] sob upon ambulation l big toe skin bluish d/w family [id number] vascular f/u noted [id number] foot less discolured dc plan once cleared by card Problems: Exam/Review of Systems Vital Signs Vitals Vital Signs Date Time Temp Pulse Resp B/P Pulse Ox O2 Delivery O2 Flow Rate FiO2 10/08/16 11:41 99.1 98 20 149/78 96 10/08/16 08:16 Room Air 10/08/16 08:04 2.0 Intake and Output 10/07/16 10/07/16 10/08/16 15:00 23:00 07:00 Intake Total 1200 ml 450 ml Output Total 1150 ml 1550 ml Balance 50 ml -1100 ml Exam Constitutional: alert, oriented Psych: no complaints Head: normocephalic Eyes: nl conjunctiva ENMT: nl external ears & nose Neck: supple Respiratory: clear to auscultation Cardiovascular: regular rate and rhythm Gastrointestinal: soft Genitourinary - Male: nl penis Results Result Diagram: 10/07/16 0605 10/07/16 0605 Results 24 hrs Laboratory Tests Test 10/07/16 17:05 10/07/16 21:34 10/08/16 07:45 10/08/16 11:32 Bedside Glucose 160 180 125 195 Medications Medications Current Medications Morphine Sulfate (morphine) 2 mg Q2H PRN IV FOR NON CARDIAC PAIN (4-10) Last administered on 10/04/16 01:18; Admin Dose 2 MG; Start 09/27/16 at 10:30 Al Hydrox/Mg Hydrox/Simethicone (Mag-Al Plus) 30 ml Q4H PRN PO GASTROINTESTINAL UPSET; Start 09/27/16 at 10:30 Enalapril Maleate (Vasotec) 20 mg DAILY PO Last administered on 10/08/16 08:26 ; Admin Dose 20 MG; Start 09/28/16 at 09:00 Ondansetron HCl (Zofran Inj) 4 mg Q6H PRN IV NAUSEA AND/OR VOMITING; Start 09/27 at 18:30 Acetaminophen (Tylenol Tab) 650 mg Q6H PRN PO PAIN LEVEL 1-3 OR FEVER; Start at 18:30 Acetaminophen/ Hydrocodone Bitart ([place] (5/325)) 1 tab Q6H PRN PO MODERATE PAIN LEVEL 4-6 Last administered on 10/07/16 08:41; Admin Dose 1 TAB; Start 09/27/16 at 18:30 Docusate Sodium (Colace) 100 mg Q12H PRN PO CONSTIPATION; Start 09/27/16 at 18: 30 Magnesium Hydroxide (Milk Of Mag) 30 ml DAILY PRN PO CONSTIPATION; Start at 18:30 Bisacodyl (Dulcolax) 5 mg DAILY PRN PO CONSTIPATION Last administered on 08:39; Admin Dose 5 MG; Start 09/27/16 at 18:30 Pantoprazole (Protonix Iv) 40 mg DAILY@06 IV Last administered on 10/08/16 06: 23; Admin Dose 40 MG; Start 10/02/16 at 06:00 Lorazepam (Ativan) 1 mg BID PRN PO ANXIETY Last administered on 10/04/16 20:19 ; Admin Dose 1 MG; Start 10/03/16 at 10:30 Aspirin 325 mg 325 mg DAILY PO Last administered on 10/08/16 08:26; Admin Dose 325 MG; Start 10/04/16 at 09:00 Levofloxacin/ Dextrose (Levaquin 500mg/ D5W 100 ml (Pmx)) 100 ml @ 100 mls/hr Q24H IVPB Last administered on 10/07/16 17:35; Admin Dose 100 MLS/HR; Start at 18:30 Metoprolol Tartrate (Lopressor) 50 mg BID PO Last administered on 10/08/16 10: 44; Admin Dose 50 MG; Start 10/04/16 at 21:00 Diagnostic Test (Pha) (Accucheck) 1 ea 02 XX Last administered on 10/06/16 06: 26; Admin Dose 1 EA; Start 10/05/16 at 02:00 Miscellaneous Information 1 ea NOTE XX ; Start 10/04/16 at 13:30 Glucose (Glutose) 15 gm Q15M PRN PO DECREASED GLUCOSE; Start 10/04/16 at 13:30 Glucose (Glutose) 22.5 gm Q15M PRN PO DECREASED GLUCOSE; Start 10/04/16 at 13:30 Dextrose (D50w Syringe) 25 ml Q15M PRN IV DECREASED GLUCOSE; Start 10/04/16 at 13:30 Dextrose (D50w Syringe) 50 ml Q15M PRN IV DECREASED GLUCOSE; Start 10/04/16 at 13:30 Glucagon (Glucagen) 1 mg Q15M PRN IM DECREASED GLUCOSE; Start 10/04/16 at 13:30 Glucose (Glutose) 15 gm Q15M PRN BUCCAL DECREASED GLUCOSE; Start 10/04/16 at 13: 30 Insulin Glargine (Lantus) 8 unit DAILY@20 SC Last administered on 10/07/16 21: 49; Admin Dose 8 UNIT; Start 10/04/16 at 14:00 Alprazolam (Xanax) 0.25 mg Q12H PRN PO ANXIETY Last administered on 10/05/16 20:49; Admin Dose 0.25 MG; Start 10/04/16 at 17:00 Enoxaparin Sodium (Lovenox) 40 mg DAILY SC Last administered on 10/08/16 10:47 ; Admin Dose 40 MG; Start 10/06/16 at 09:00 Zolpidem Tartrate (Ambien) 5 mg HS PRN PO INSOMNIA; Start 10/07/16 at 11:00 EBENEZER GUARDADO MD Oct 08, 2016 12:36
--- NOTE | 2016-10-08 15:10 | PN ---
Date/Time of Note Date/Time of Note DATE: 10/08/16 TIME: 15:10 Assessment/Plan Assessment/Plan Chief Complaint/Hosp Course IMPRESSION: 1. Coronary artery disease. 2. Peripheral vascular disease. 3. Left toe ulcer. SP CABG Supp Tx DC Planning mobilize Problems: Subjective 24 Hr Interval Summary Constitutional: improved Pain Control: mild Exam/Review of Systems Vital Signs Vitals Vital Signs Date Time Temp Pulse Resp B/P Pulse Ox O2 Delivery O2 Flow Rate FiO2 10/08/16 12:51 98 10/08/16 11:41 99.1 20 149/78 96 10/08/16 08:16 Room Air 10/08/16 08:04 2.0 Intake and Output 10/07/16 10/07/16 10/08/16 15:00 23:00 07:00 Intake Total 1200 ml 450 ml Output Total 1150 ml 1550 ml Balance 50 ml -1100 ml Exam Neck: non-tender, supple Respiratory: clear to auscultation, normal air movement Cardiovascular: nl pulses, regular rate and rhythm Gastrointestinal: nl liver, spleen, non-tender, soft Results Result Diagram: 10/07/16 0605 10/07/16604 CONSTANZA AWAD MD Oct 08, 2016 15:10
[2016-10-08] MEDS: LEVOFLOXACIN 500MG/D5W (PMX) 100 ML IVPB SCH (18:13)
[2016-10-08] MEDS: INSULIN GLARGINE [LANtus] 3 ML PEN SC SCH (21:20)
[2016-10-09] VITALS (10 sets, daily range): BP systolic 130–166; BP diastolic 70–91; PULSE 80–100; RESP 17–20
[2016-10-09] MEDS: ACCUCHECK XX SCH (02:00)
[2016-10-09] MEDS: FUROSEMIDE 20 MG INJ IV SCH ×2 (05:34→17:52)
[2016-10-09] MEDS ORDERED: PANTOPRAZOLE (EC) 40 MG TAB PO SCH (06:00)
[2016-10-09] MEDS: INSULIN ASPART [NOVOLOG] 3 ML PEN SC SCH ×3 (07:32→17:52)
[2016-10-09] MEDS: ENALAPRIL 20 MG TAB PO SCH (08:45)
[2016-10-09] MEDS: METOPROLOL 50 MG TAB PO SCH (08:45)
[2016-10-09] MEDS: ASPIRIN (EC) 325 MG TAB PO SCH (08:45)
[2016-10-09] MEDS: ENOXAPARIN 40 MG/0.4 ML SYG SC SCH (08:56)
--- NOTE | 2016-10-09 09:41 | CONS ---
Date/Time of Note Date/Time of Note DATE: 10/09/16 TIME: 09:38 Assessment/Plan Assessment/Plan Additional Assessment/Plan 1.Cad s/p Cabg x 6 vesels POD - con't to improve. Able to ambulate with assistance toady - pain controlled 2.PAD with nonhealing toe ulcer - will address once recovers post op 3.HTN - modest Rx, con't to optimize therapy 4.DM -on meds, keep euglycemic 5. Dyslipidemia 6. LFT's-moderately increased but slowly downtrending - better now Consultation Date/Type/Reason Admit Date/Time Sep 27, 2016 at 10:27 Type of Consultation: Cardiology Referring Provider: JERICHO NINA MD 24 HR Interval Summary Free Text/Dictation NO acute change - BP stable - able to ambulate now - con't pain Rx ROS: No fever, no chills, no nausea, no vomiting, no diarrhea/constipation No recent weight changes No chest pain, no PND, no orthopnea No dizziness, blurred vision No thirst, no heat or cold intolerance Exam/Review of Systems Vital Signs Vitals Vital Signs Date Time Temp Pulse Resp B/P Pulse Ox O2 Delivery O2 Flow Rate FiO2 10/09/16 09:14 Nasal Cannula 3.0 10/09/16 09:02 96 10/09/16 07:46 98.2 20 166/91 98 Intake and Output 10/08/16 10/08/16 10/09/16 15:00 23:00 07:00 Intake Total 640 ml 480 ml 450 ml Output Total 600 ml 1200 ml 800 ml Balance 40 ml -720 ml -350 ml Exam General: WN/WD/NAD, AOx 3 HEENT: Unicetric/atraumatic/EOMI (follow commands) NECK: JVD elevated, no thyromegaly Lymph: no lymphadenopathy HEART: regular with no S3, II/ systolic murmur at apex, scar post op LUNGS: Coarse sounds ABD: soft, NT, ND, +BS : Intact Neuro: non focal SKIN: chronic changes EXT: trace edema, PVD , ulcer Results Result Diagram: 10/07/16 0605 10/07/16 0605 Results 24 hrs Laboratory Tests Test 10/08/16 11:32 10/08/16 16:28 10/08/16 20:08 10/09/16 07:18 Bedside Glucose 195 189 269 H 200 Medications Medications Current Medications Morphine Sulfate (morphine) 2 mg Q2H PRN IV FOR NON CARDIAC PAIN (4-10) Last administered on 10/04/16 01:18; Admin Dose 2 MG; Start 09/27/16 at 10:30 Al Hydrox/Mg Hydrox/Simethicone (Mag-Al Plus) 30 ml Q4H PRN PO GASTROINTESTINAL UPSET; Start 09/27/16 at 10:30 Enalapril Maleate (Vasotec) 20 mg DAILY PO Last administered on 10/09/16 08:45 ; Admin Dose 20 MG; Start 09/28/16 at 09:00 Ondansetron HCl (Zofran Inj) 4 mg Q6H PRN IV NAUSEA AND/OR VOMITING; Start 09/27 at 18:30 Acetaminophen (Tylenol Tab) 650 mg Q6H PRN PO PAIN LEVEL 1-3 OR FEVER; Start at 18:30 Acetaminophen/ Hydrocodone Bitart ([place] (5/325)) 1 tab Q6H PRN PO MODERATE PAIN LEVEL 4-6 Last administered on 10/07/16 08:41; Admin Dose 1 TAB; Start 09/27/16 at 18:30 Docusate Sodium (Colace) 100 mg Q12H PRN PO CONSTIPATION; Start 09/27/16 at 18: 30 Magnesium Hydroxide (Milk Of Mag) 30 ml DAILY PRN PO CONSTIPATION; Start at 18:30 Bisacodyl (Dulcolax) 5 mg DAILY PRN PO CONSTIPATION Last administered on 08:39; Admin Dose 5 MG; Start 09/27/16 at 18:30 Lorazepam (Ativan) 1 mg BID PRN PO ANXIETY Last administered on 10/04/16 20:19 ; Admin Dose 1 MG; Start 10/03/16 at 10:30 Aspirin 325 mg 325 mg DAILY PO Last administered on 10/09/16 08:45; Admin Dose 325 MG; Start 10/04/16 at 09:00 Levofloxacin/ Dextrose (Levaquin 500mg/ D5W 100 ml (Pmx)) 100 ml @ 100 mls/hr Q24H IVPB Last administered on 10/08/16 18:13; Admin Dose 100 MLS/HR; Start at 18:30 Metoprolol Tartrate (Lopressor) 50 mg BID PO Last administered on 10/09/16 08: 45; Admin Dose 50 MG; Start 10/04/16 at 21:00 Diagnostic Test (Pha) (Accucheck) 1 ea 02 XX Last administered on 10/06/16 06: 26; Admin Dose 1 EA; Start 10/05/16 at 02:00 Miscellaneous Information 1 ea NOTE XX ; Start 10/04/16 at 13:30 Glucose (Glutose) 15 gm Q15M PRN PO DECREASED GLUCOSE; Start 10/04/16 at 13:30 Glucose (Glutose) 22.5 gm Q15M PRN PO DECREASED GLUCOSE; Start 10/04/16 at 13:30 Dextrose (D50w Syringe) 25 ml Q15M PRN IV DECREASED GLUCOSE; Start 10/04/16 at 13:30 Dextrose (D50w Syringe) 50 ml Q15M PRN IV DECREASED GLUCOSE; Start 10/04/16 at 13:30 Glucagon (Glucagen) 1 mg Q15M PRN IM DECREASED GLUCOSE; Start 10/04/16 at 13:30 Glucose (Glutose) 15 gm Q15M PRN BUCCAL DECREASED GLUCOSE; Start 10/04/16 at 13: 30 Insulin Glargine (Lantus) 8 unit DAILY@20 SC Last administered on 10/08/16 21: 20; Admin Dose 8 UNIT; Start 10/04/16 at 14:00 Alprazolam (Xanax) 0.25 mg Q12H PRN PO ANXIETY Last administered on 10/05/16 20:49; Admin Dose 0.25 MG; Start 10/04/16 at 17:00 Enoxaparin Sodium (Lovenox) 40 mg DAILY SC Last administered on 10/09/16 08:56 ; Admin Dose 40 MG; Start 10/06/16 at 09:00 Zolpidem Tartrate (Ambien) 5 mg HS PRN PO INSOMNIA Last administered on 21:26; Admin Dose 5 MG; Start 10/07/16 at 11:00 Pantoprazole (Protonix Tab) 40 mg DAILY@06 PO Last administered on 10/09/16 05 :33; Admin Dose 40 MG; Start 10/09/16 at 06:00 NEDA LERNER MD Oct 09, 2016 09:41
[2016-10-09] MEDS ORDERED: AMLODIPINE 5 MG TAB PO SCH (10:00)
--- NOTE | 2016-10-09 12:51 | PN ---
Date/Time of Note Date/Time of Note DATE: 10/09/16 TIME: 12:49 Assessment/Plan VTE Prophylaxis VTE Prophylaxis Intervention: other Assessment/Plan Chief Complaint/Hosp Course Chief Complaint/Hosp Course A/P DM HTN S/P CATH POSITIVE FOR CAD PVD 1. Coronary artery bypass grafting x6, left internal mammary artery to left anterior descending, saphenous vein graft to the first diagonal branch of the left anterior descending, saphenous vein graft to the second diagonal branch of the LAD in a wide fashion. 2. Saphenous vein graft to the obtuse marginal branch of the circumflex. 3. Saphenous vein graft to the posterior descending artery. 4. Saphenous vein graft to the posterolateral artery in an open fashion at the bifurcation. 5. Right coronary endarterectomy. 6. Right coronary endarterectomy. 7. Left anterior descending endarterectomy. 8. Saphenous vein harvest from the left lower extremity. 9. Thymectomy 10 leucocytosis 11 abn lft [id number] sob upon ambulation l big toe skin bluish d/w family [id number] vascular f/u noted [id number] foot less discolured dc plan once cleared by card [id number] vascular input noted dc home plan Problems: Exam/Review of Systems Vital Signs Vitals Vital Signs Date Time Temp Pulse Resp B/P Pulse Ox O2 Delivery O2 Flow Rate FiO2 10/09/16 12:17 100 10/09/16 12:02 99.1 20 130/70 96 10/09/16 09:14 Nasal Cannula 3.0 Intake and Output 10/08/16 10/08/16 10/09/16 15:00 23:00 07:00 Intake Total 640 ml 480 ml 450 ml Output Total 600 ml 1200 ml 800 ml Balance 40 ml -720 ml -350 ml Exam Constitutional: alert, oriented Head: normocephalic Eyes: nl conjunctiva ENMT: nl external ears & nose Neck: non-tender, supple Respiratory: clear to auscultation Cardiovascular: regular rate and rhythm Gastrointestinal: soft Extremities: cyanosis, other Results Result Diagram: 10/07/1660410/07/16604 Results 24 hrs Laboratory Tests Test 10/08/16 16:28 10/08/16 20:08 10/09/16 07:18 10/09/16 11:33 Bedside Glucose 189 269 H 200 271 H Medications Medications Current Medications Morphine Sulfate (morphine) 2 mg Q2H PRN IV FOR NON CARDIAC PAIN (4-10) Last administered on 10/04/16 01:18; Admin Dose 2 MG; Start 09/27/16 at 10:30 Al Hydrox/Mg Hydrox/Simethicone (Mag-Al Plus) 30 ml Q4H PRN PO GASTROINTESTINAL UPSET; Start 09/27/16 at 10:30 Enalapril Maleate (Vasotec) 20 mg DAILY PO Last administered on 10/09/16 08:45 ; Admin Dose 20 MG; Start 09/28/16 at 09:00 Ondansetron HCl (Zofran Inj) 4 mg Q6H PRN IV NAUSEA AND/OR VOMITING; Start 09/27 at 18:30 Acetaminophen (Tylenol Tab) 650 mg Q6H PRN PO PAIN LEVEL 1-3 OR FEVER; Start at 18:30 Acetaminophen/ Hydrocodone Bitart ([place] (5/325)) 1 tab Q6H PRN PO MODERATE PAIN LEVEL 4-6 Last administered on 10/07/16 08:41; Admin Dose 1 TAB; Start 09/27/16 at 18:30 Docusate Sodium (Colace) 100 mg Q12H PRN PO CONSTIPATION; Start 09/27/16 at 18: 30 Magnesium Hydroxide (Milk Of Mag) 30 ml DAILY PRN PO CONSTIPATION; Start at 18:30 Bisacodyl (Dulcolax) 5 mg DAILY PRN PO CONSTIPATION Last administered on 08:39; Admin Dose 5 MG; Start 09/27/16 at 18:30 Lorazepam (Ativan) 1 mg BID PRN PO ANXIETY Last administered on 10/04/16 20:19 ; Admin Dose 1 MG; Start 10/03/16 at 10:30 Aspirin 325 mg 325 mg DAILY PO Last administered on 10/09/16 08:45; Admin Dose 325 MG; Start 10/04/16 at 09:00 Levofloxacin/ Dextrose (Levaquin 500mg/ D5W 100 ml (Pmx)) 100 ml @ 100 mls/hr Q24H IVPB Last administered on 10/08/16 18:13; Admin Dose 100 MLS/HR; Start at 18:30 Metoprolol Tartrate (Lopressor) 50 mg BID PO Last administered on 10/09/16 08: 45; Admin Dose 50 MG; Start 10/04/16 at 21:00 Diagnostic Test (Pha) (Accucheck) 1 ea 02 XX Last administered on 10/06/16 06: 26; Admin Dose 1 EA; Start 10/05/16 at 02:00 Miscellaneous Information 1 ea NOTE XX ; Start 10/04/16 at 13:30 Glucose (Glutose) 15 gm Q15M PRN PO DECREASED GLUCOSE; Start 10/04/16 at 13:30 Glucose (Glutose) 22.5 gm Q15M PRN PO DECREASED GLUCOSE; Start 10/04/16 at 13:30 Dextrose (D50w Syringe) 25 ml Q15M PRN IV DECREASED GLUCOSE; Start 10/04/16 at 13:30 Dextrose (D50w Syringe) 50 ml Q15M PRN IV DECREASED GLUCOSE; Start 10/04/16 at 13:30 Glucagon (Glucagen) 1 mg Q15M PRN IM DECREASED GLUCOSE; Start 10/04/16 at 13:30 Glucose (Glutose) 15 gm Q15M PRN BUCCAL DECREASED GLUCOSE; Start 10/04/16 at 13: 30 Insulin Glargine (Lantus) 8 unit DAILY@20 SC Last administered on 10/08/16 21: 20; Admin Dose 8 UNIT; Start 10/04/16 at 14:00 Alprazolam (Xanax) 0.25 mg Q12H PRN PO ANXIETY Last administered on 10/05/16 20:49; Admin Dose 0.25 MG; Start 10/04/16 at 17:00 Enoxaparin Sodium (Lovenox) 40 mg DAILY SC Last administered on 10/09/16 08:56 ; Admin Dose 40 MG; Start 10/06/16 at 09:00 Zolpidem Tartrate (Ambien) 5 mg HS PRN PO INSOMNIA Last administered on 21:26; Admin Dose 5 MG; Start 10/07/16 at 11:00 Pantoprazole (Protonix Tab) 40 mg DAILY@06 PO Last administered on 10/09/16 05 :33; Admin Dose 40 MG; Start 10/09/16 at 06:00 Amlodipine Besylate (Norvasc) 5 mg BID PO Last administered on 10/09/16 10:26 ; Admin Dose 5 MG; Start 10/09/16 at 10:00 EBENEZER GUARDADO MD Oct 09, 2016 12:51
[2016-10-09] MEDS ORDERED: LANT3I SC (12:57)
[2016-10-09] MEDS ORDERED: PANT40TA4 PO (12:57)
[2016-10-09] MEDS ORDERED: Accucheck XX (12:57)
[2016-10-09] MEDS ORDERED: HYDR-3498 PO (12:57)
[2016-10-09] MEDS ORDERED: AMLO-145 PO (12:57)
[2016-10-09] MEDS ORDERED: METO-429 PO (12:57)
[2016-10-09] MEDS ORDERED: ASPI325T32 PO (12:57)
[2016-10-09] MEDS ORDERED: ALPR0.254 PO (12:57)
--- NOTE | 2016-10-09 13:01 | PDOCDIS ---
Discharge Instructions CONDITION Patient Condition: Fair HOME CARE INSTRUCTIONS: Diet Instructions: Reduced SodiumSpecial Diet: carb count ACTIVITY: Activity Restrictions: Slowly Increase Activity Avoid heavy lifting EBENEZER GUARDADO MD Oct 09, 2016 13:01
[2016-10-09] MEDS: HYDROCODONE/APAP (5/325) TAB PO PRN (17:18)
[2016-10-09] MEDS: LEVOFLOXACIN 500MG/D5W (PMX) 100 ML IVPB SCH (17:52)
--- NOTE | 2016-10-09 18:23 | PN ---
Date/Time of Note Date/Time of Note DATE: 10/09/16 TIME: 18:23 Assessment/Plan Assessment/Plan Chief Complaint/Hosp Course IMPRESSION: 1. Coronary artery disease. 2. Peripheral vascular disease. 3. Left toe ulcer. SP CABG Supp Tx DC Planning mobilize Problems: Subjective 24 Hr Interval Summary Constitutional: improved Pain Control: mild Exam/Review of Systems Vital Signs Vitals Vital Signs Date Time Temp Pulse Resp B/P Pulse Ox O2 Delivery O2 Flow Rate FiO2 10/09/16 18:14 98.3 20 130/76 98 10/09/16 17:37 91 10/09/16 09:14 Nasal Cannula 3.0 Intake and Output 10/08/16 10/08/16 10/09/16 15:00 23:00 07:00 Intake Total 640 ml 480 ml 450 ml Output Total 600 ml 1200 ml 800 ml Balance 40 ml -720 ml -350 ml Exam Neck: non-tender, supple Respiratory: clear to auscultation, normal air movement Cardiovascular: nl pulses, regular rate and rhythm Gastrointestinal: nl liver, spleen, non-tender, soft Results Result Diagram: 10/07/16 0605 10/07/1605 CONSTANZA AWAD MD Oct 09, 2016 18:23
--- NOTE | 2016-10-14 21:37 | QN ---
Documentation Comment [id number] JERICHO NINA MD Oct 14, 2016 21:37
--- NOTE | 2016-10-15 06:29 | DS ---
DATE OF ADMISSION: 09/27/2016 DATE OF DISCHARGE: 10/09/2016 HISTORY OF PRESENT ILLNESS: The patient was admitted in ____. The patient was seen by Dr. Nelson i n consultation and underwent coronary angiogram. Dr. Nelson recommended ____ consultation. Dr. Sanaz thorne saw this patient in consultation. Because of patient's CAD, ____left toe ulcer and the abelardo ent also has PVD. The patient underwent CABG. Post procedure the patient was intubated and successf ully extubated. The patient had episodes of agitation and had also leukocytosis. Antibiotics were started. The patient's leukocytosis is resolving. The patient also had ____done which shows the p atient has a new ____ catheter ____midline sternotomy and the heart is normal in size. The patient had normal ____done showed hepatic steatosis. Gallbladder sludge is noted without evidence of cholel ithiasis or cholecystitis. The patient also had carotid ultrasound done during this hospitalization that showed a small amount of plaque present within the visualized portion of both ____arteries. N o evidence of flow acceleration to suggest hemodynamic ____stenosis. The patient also started physi candida therapy. The patient had x-ray of the tibia and fibula that showed no evidence of ____ foreign body. The patient's cultures were negative. The patient was cleared by the tour consultant to be discharged ho de. DISCHARGE DIAGNOSES: Include: 1. Coronary artery disease. The patient is status post coronary artery bypass graft. 2. Leukocytosis, abnormal liver function tests. 3. Electrolyte imbalance. 4. Anemia. 5. Atherosclerotic heart disease. 6. Dyslipidemia. 7. Status post anxiety. 8. Hepatic steatosis. DISCHARGE MEDICATIONS: To continue on: 1. Xanax. 2. Amlodipine. 3. Aspirin. 4. Hydrocodone. 5. Insulin. 6. Metoprolol. 7. Protonix. FOLLOWUP: The patient to follow up with ____Marvin, Dr. Nelson and Dr. Alberto as an outpatient. Dictated By: JERICHO NINA MD BS/NTS Conf#: [id number] DID#: [id number]
== END 2016-10-09 18:25 | disposition home or self-care (01) | DRG 234 ==
LOC: SDS 06:45 → MS4 10:27 → ICU 10-01 13:08 → TEL 10-05 23:57
PROVIDERS: ADMIT Internal Medicine Nephrology; ATTEND Internal Medicine Nephrology
PROC: 4A023N7 Measurement of Cardiac Sampling and Pressure, Left Heart, Percutaneous Approach (ICD-10-PCS; 2016-09-27)
PROC: B211YZZ Fluoroscopy of Multiple Coronary Arteries using Other Contrast (ICD-10-PCS; 2016-09-27)
PROC: B215YZZ Fluoroscopy of Left Heart using Other Contrast (ICD-10-PCS; 2016-09-27)
PROC: 02100Z9 Bypass Coronary Artery, One Artery from Left Internal Mammary, Open Approach (ICD-10-PCS; 2016-10-01)
PROC: 06BQ4ZZ Excision of Left Saphenous Vein, Percutaneous Endoscopic Approach (ICD-10-PCS; 2016-10-01)
PROC: 5A1221Z Performance of Cardiac Output, Continuous (ICD-10-PCS; 2016-10-01)
PROC: 021309W Bypass Coronary Artery, Four or More Arteries from Aorta with Autologous Venous Tissue, Open Approach (ICD-10-PCS; principal; 2016-10-01 07:30)
DX: I25.119 Atherosclerotic heart disease of native coronary artery with unspecified angina pectoris (principal); E11.52 Type 2 diabetes mellitus with diabetic peripheral angiopathy with gangrene; E11.621 Type 2 diabetes mellitus with foot ulcer; E87.8 Other disorders of electrolyte and fluid balance, not elsewhere classified; I10 Essential (primary) hypertension; L97.529 Non-pressure chronic ulcer of other part of left foot with unspecified severity; E78.5 Hyperlipidemia, unspecified; D64.9 Anemia, unspecified; K76.0 Fatty (change of) liver, not elsewhere classified; F41.9 Anxiety disorder, unspecified; D72.829 Elevated white blood cell count, unspecified; K82.8 Other specified diseases of gallbladder; I25.2 Old myocardial infarction
CPT/HCPCS: 36430; 36592; 36600; 71010; 73590; 75635; 76705; 80048; 80053; 80061; 81001; 81003; 82803; 82962; 83735; 84132; 85014; 85018; 85025; 85610; 85730; 86850; 86900; 86901; 86920; 86945; 87081; 87086; 90686; 93005; 93312; 93325; 93458; 93880; 94002; 94003; 94770; 97116; 97162; 97530; J1940; C1769; C1887; C9113; J0171; J0690; J1170; J1265; J1644; J1650; J1815; J1956; J2001; J2150; J2250; J2260; J2270; J2370; J2440; J2720; J3010; J3475; J3480; J7070; P9016; P9035; P9045; P9047; P9059; Q9967

== ENCOUNTER 2016-10-23 13:02 | Day surgery (SDC) | payer OTHER ==
[~2016-10-23] VITALS: Ht 167.6 cm; Wt 66.7 kg
[2016-10-23] VITALS (18 sets, daily range): BP systolic 90–152; BP diastolic 59–78; PULSE 110–118; RESP 11–31; Ht 167.6 cm; Wt 66.7 kg
[~2016-10-23 13:02] MED LIST: ALPR0.254 PO; AMLO-145 PO; ASPI325T32 PO; Accucheck XX; ENAL20TA PO; HYDR-3498 PO; LANT3I SC; METF-382 PO; METO-429 PO; PANT40TA4 PO
[2016-10-23 14:29] LABS: ADD SCAN DIFF NO
[2016-10-23 14:30] LABS: BASOPHILS % 0.5 % (0.0-2.0); EOSINOPHILS # 0.1 10^3/ul (0.0-0.5); EOSINOPHILS % 1.3 % (0.0-7.0); HEMOGLOBIN 12.3 g/dl (14.0-18.0); LYMPHOCYTES % 25.8 % (15.0-51.0); MEAN CORPUSCULAR HGB CONC 33.2 g/dl (32.0-37.0); MEAN CORPUSCULAR VOLUME 90.2 fl (82.0-101.0); MEAN PLATELET VOLUME 9.2 fl (7.4-10.4); MONOCYTE # 0.8 10^3/ul (0.3-0.9); MONOCYTES % 10.7 % (0.0-11.0); NEUTROPHIL # 4.7 10^3/ul (1.6-7.5); NEUTROPHILS % 61.3 % (39.0-77.0); PLATELET COUNT 498 10^3/UL (140-415); RED CELL DISTRIBUTION WIDTH 12.5 % (11.5-14.5); WHITE BLOOD COUNT 7.7 10^3/ul (4.8-10.8)
[2016-10-23 14:41] LABS: INR 1.13; PROTIME 14.5 Sec (12.2-14.2); PT RATIO 1.1
[2016-10-23 14:42] LABS: PARTIAL THROMBOPLASTIN TIME 28.9 Sec (25.0-35.0)
[2016-10-23 14:43] LABS: ALBUMIN/GLOBULIN RATIO 0.97; BILIRUBIN,INDIRECT 0.2 mg/dl (0-1.1); BILIRUBIN,TOTAL 0.2 mg/dl (0.2-1.3); TOTAL PROTEIN 8.1 g/dl (6.1-8.1)
[2016-10-23 14:46] LABS: CALCIUM 9.4 mg/dl (8.4-10.2); CREATININE 0.85 mg/dl (0.61-1.24); POTASSIUM 4.6 mmol/L (3.5-5.1)
[2016-10-23 16:04] LABS: ADD UMIC YES; URINE BILIRUBIN (Dip) NEGATIVE (NEGATIVE); URINE BLOOD (Dip) NEGATIVE (NEGATIVE); URINE COLOR LT. YELLOW (YELLOW); URINE GLUCOSE (Dip) NEGATIVE (NEGATIVE); URINE KETONES (Dip) NEGATIVE (NEGATIVE); URINE LEUKOCYTE ESTERASE (Dip) NEGATIVE (NEGATIVE); URINE NITRITE (Dip) NEGATIVE (NEGATIVE); URINE TOTAL PROTEIN (Dip) TRACE (NEGATIVE); URINE UROBILINOGEN (Dip) 0.2 E.U./dL (0.1-1.0)
[2016-10-23] MEDS ORDERED: LIDOCAINE 1% (MDV) 20 ML INJ ONE (16:30)
[2016-10-23] MEDS ORDERED: HEPARIN 1000 UNITS/NS (A-LINE) 1,000 ML ONE (16:30)
[2016-10-23] MEDS ORDERED: MIDAZOLAM 1 MG/ML 2 ML INJ ONE (16:30)
[2016-10-23] MEDS ORDERED: FENTAnyl 50 MCG/ML VIAL ONE (16:30)
[2016-10-23] MEDS ORDERED: IODIXANOL LOCM 100 ML BTL ONE (16:30)
[2016-10-23 16:35] LABS: SQUAMOUS EPITHELIAL CELL,UR RARE; URINE RBCS 0-2 /HPF (0)
[2016-10-23] MEDS ORDERED: hydrALAzine 20 MG INJ ONE (19:04)
[2016-10-23] MEDS ORDERED: NITROGLYCERIN (IC) 100 MCG/ML INJ ONE (19:06)
[2016-10-23] MEDS ORDERED: CLOPIDOGREL 300 MG TAB ONE (19:11)
--- NOTE | 2016-10-23 21:12 | OPR ---
DATE OF OPERATION: PREOPERATIVE DIAGNOSIS: Left lower extremity ischemia. POSTOPERATIVE DIAGNOSIS: Left lower extremity ischemia. OPERATION PERFORMED: 1. Atherectomy, left femoral artery. 2. Atherectomy, left popliteal artery. 3. Atherectomy, left posterior tibial artery. 4. Angioplasty, left femoral artery, 6 x 40 mm balloon. 5. Angioplasty, left popliteal artery, 6 x 40 mm. 6 . Angioplasty, left posterior tibial artery, 3 x 20 mm balloon. 7. Abdominal aortogram with bilateral lower extremity runoff. 8. Left lower extremity third-order angiogram. 9. Catheter introduction into the abdominal aorta. 10. Ultrasound guidance into central artery. 11. Conscious sedation for 2 hours. 12. Angio-Seal closure of the right femoral artery. 13. Fluoroscopy. SURGEON: Constanza Alberto MD ANESTHESIA: Local plus IV sedation. CONSENT: Risks, benefits, complications, alternative therapies, high-risk nature of the operation f ully explained to the patient and the family, consent obtained. OPERATIVE TECHNIQUE: The patient was placed in supine position, prepped and draped in usual sterile fashion. Lidocaine 1% was used throughout the operation for local anesthesia. The patient was sed ated, timeout was called and I started. Under ultrasonic guidance, access was gained in the right common femoral artery. A 0.035 guidewire was advanced through without any difficulties. A 5-[place] sheath was advanced over a guidewire. Th e wire was passed from right to left, and a 5-[place] catheter was placed in the left femoral artery. Left lower extremity angiogram was done. Subsequently, at the end of the operation, a right lower extremity angiogram was also done. Interpretation and supervision of the angiogram revealed left iliac artery normal, left common femor al artery normal, profunda normal. Superficial femoral artery had diffuse disease, less than 30% th roughout its course distally. The popliteal artery had a 99% stenosis at the knee. Anterior tibial artery and peroneal were subtotal. Posterior tibial artery was 100% occluded at its origin. At the end of the operation, a right lower extremity angiogram was also done. Interpretation and gómez pervision of the right lower extremity angiogram revealed right common iliac artery normal, internal iliac artery normal, external iliac artery normal, profunda normal. Superficial femoral artery had less than 50% stenosis throughout its course. Popliteal artery normal. Anterior tibial artery had a 40% stenosis proximally and 30% stenosis diffusely along its course. Posterior tibial artery was small, about 1 mm vessel, which did not show up all the way down to the ankle. Peroneal artery was 1.5 [address] the way down to the foot. We passed an 0.[address] down into the left femoral artery, popliteal artery and to the anterior tibial artery all the way down. The site of stenosis of the femoral artery, popliteal artery and the posterior tibial artery was gently dilated using a 2 mm balloon, and then we proceede d with the atherectomy. Atherectomy of the posterior tibial artery was done. In addition to the atherectomy of the anterior femoral artery and popliteal artery, we used a basket to retrieve atherosclerotic debris from the f emoral and popliteal atherectomy. The basket was placed in the popliteal artery during that atherec srinivasan. Subsequently balloon angioplasty of the femoral and the popliteal artery using a 6 x 40 mm balloon a nd the posterior tibial artery with a 3 x 40 mm balloon. We also injected nitroglycerin into the posterior tibial artery. This final angiogram revealed less than 30% stenosis in the affected areas of the popliteal and femoral artery, and the posterior tibi al artery had less than 10% stenosis in the area of the stenosis. The long ____ [place] sheath which had been placed was exchanged to a ____ [place] sheath, which was then removed, and the right femora l artery was closed using Angio-Seal. The patient tolerated procedure well. Dictated By: CONSTANZA HOWELL/RAJANI Conf#: [id number] DID#: [id number]
== END 2016-10-23 23:43 | disposition home or self-care (01) ==
LOC: SDS 13:02
PROVIDERS: ATTEND Thoracic Surgery (Cardiothoracic Vascular Surgery)
DX: I77.1 Stricture of artery (principal)
CPT/HCPCS: 37225; 37229; 75630; 80053; 81001; 82962; 85025; 85610; 85730; C1714; C1725; C1760; C1769; C1887; C1894; J0360; J1644; J2250; J3010; Q9967; 81003

== ENCOUNTER 2017-01-04 06:58 | Observation (INO) | payer OTHER ==
[2017-01-04] VITALS (22 sets, daily range): BP systolic 110–145; BP diastolic 67–89; PULSE 86–107; RESP 10–33; Ht 167.6 cm; Wt 69.3 kg
[~2017-01-04] VITALS: Ht 167.6 cm; Wt 69.3 kg
[~2017-01-04 06:58] MED LIST changes: -ALPR0.254 PO; -Accucheck XX; -HYDR-3498 PO; -LANT3I SC; -METF-382 PO; +METF500T4 PO
[2017-01-04 08:03] LABS: ADD SCAN DIFF NO
[2017-01-04 08:18] LABS: BASOPHIL # 0.1 10^3/ul (0.0-0.1); BASOPHILS % 0.8 % (0.0-2.0); EOSINOPHILS # 0.1 10^3/ul (0.0-0.5); EOSINOPHILS % 0.8 % (0.0-7.0); HEMATOCRIT 46.3 % (42.0-52.0); HEMOGLOBIN 15.6 g/dl (14.0-18.0); LYMPHOCYTES # 3.1 10^3/ul (0.8-2.9); LYMPHOCYTES % 41.1 % (15.0-51.0); MEAN CORPUSCULAR HEMOGLOBIN 28.9 pg (29.0-33.0); MEAN CORPUSCULAR HGB CONC 33.7 g/dl (32.0-37.0); MEAN CORPUSCULAR VOLUME 85.7 fl (82.0-101.0); MEAN PLATELET VOLUME 9.7 fl (7.4-10.4); MONOCYTE # 0.8 10^3/ul (0.3-0.9); MONOCYTES % 10.1 % (0.0-11.0); NEUTROPHIL # 3.6 10^3/ul (1.6-7.5); NEUTROPHILS % 46.9 % (39.0-77.0); PLATELET COUNT 235 10^3/UL (140-415); RED CELL DISTRIBUTION WIDTH 14.4 % (11.5-14.5); WHITE BLOOD COUNT 7.6 10^3/ul (4.8-10.8)
--- NOTE | 2017-01-04 08:21 | RADRPT ---
PROCEDURE: XR Chest. CLINICAL INDICATION: Chest pain, preoperative TECHNIQUE: Single frontal view of the chest was obtained. COMPARISON: 10/03/2016 FINDINGS: The heart is within normal limits. The thoracic aorta is calcified. The patient is status post sternotomy. There is elevation of the left diaphragm with left lower lobe atelectasis. The lungs are otherwise clear. There is no pleural effusion or pneumothorax. RPTAT: AA IMPRESSION: Elevated left diaphragm with left lower lobe atelectasis. Calcified aorta consistent with atherosclerotic disease. .Sagar Lyons MD, MD Date Time Electronically viewed and signed by .Sagar Lyons MD, on 01/04/2017 08:20 .S/
[2017-01-04 08:44] LABS: INR 0.97; PARTIAL THROMBOPLASTIN TIME 27.2 Sec (25.0-35.0); PROTIME 12.9 Sec (12.2-14.2)
[2017-01-04 08:50] LABS: ALBUMIN 4.1 g/dl (3.3-4.9); ALBUMIN/GLOBULIN RATIO 1.2; BILIRUBIN,INDIRECT 0.5 mg/dl (0-1.1); BILIRUBIN,TOTAL 0.5 mg/dl (0.2-1.3); TOTAL PROTEIN 7.5 g/dl (6.1-8.1)
[2017-01-04 08:51] LABS: CALCIUM 9.5 mg/dl (8.4-10.2); CREATININE 0.86 mg/dl (0.61-1.24); POTASSIUM 4.2 mmol/L (3.5-5.1)
[2017-01-04] MEDS ORDERED: ASPI-664 PO (09:31)
[2017-01-04] MEDS ORDERED: CEFD300C2 PO (09:31)
[2017-01-04] MEDS ORDERED: HEPARIN 1000 UNITS/ML 10 ML INJ ONE (10:09)
[2017-01-04] MEDS ORDERED: MIDAZOLAM 1 MG/ML 2 ML INJ ONE (10:09)
[2017-01-04] MEDS ORDERED: FENTAnyl 50 MCG/ML VIAL ONE (10:09)
[2017-01-04] MEDS ORDERED: IODIXANOL LOCM 100 ML BTL ONE (10:09)
[2017-01-04] MEDS ORDERED: LIDOCAINE 1% (MDV) 20 ML INJ ONE (10:09)
[2017-01-04] MEDS ORDERED: SOD CHLORIDE 0.9% 500 ML ONE (11:18)
[2017-01-04] MEDS ORDERED: NITROGLYCERIN (IC) 100 MCG/ML INJ ONE (11:18)
[2017-01-04] MEDS ORDERED: ONDANSETRON 4 MG INJ IV PRN ×2 (13:00→19:00)
--- NOTE | 2017-01-04 13:28 | OPR ---
DATE OF OPERATION: 01/04/2017 PREOPERATIVE DIAGNOSIS: Peripheral vascular disease. POSTOPERATIVE DIAGNOSIS: Peripheral vascular disease. PROCEDURES PERFORMED: 1. Atherectomy left posterior tibial artery. 2. Atherectomy left popliteal artery. 3. Atherectomy left superficial femoral artery. 4. Balloon angioplasty 2 x 10 mm balloon left posterior tibial artery. 5. Balloon angioplasty left popliteal artery, 6 x 10 mm balloon. 6. Angioplasty left superficial femoral artery, 6 x 10 mm balloon. 7. Abdominal aortogram. 8. Pelvic angiogram. 9. Ultrasound guidance into the central artery. 10. Catheter introduction to the abdominal aorta. 11. Left lower extremity third order degree angiogram. 12. Interpretation and supervision of the aortogram and lower extremity angiograms. 13. Interpretation and supervision of the angioplasties above. 14. Fluoroscopy. SURGEON: Constanza Alberto MD ANESTHESIA: Local plus IV sedation, moderate sedation for 2 hours. CONSENT: Risks, benefits, complications, alternative therapies explained to the patient and the [facility] uma, consent obtained. OPERATIVE TECHNIQUE: The patient was placed in supine position, prepped and draped in the usual suzan rile fashion. Under ultrasonic guidance, access was gained in the right common femoral artery. An 0.035 guidewire was advanced through without any difficulties. A [employer] wire was advanced up to th e abdominal aorta. A 5-Serbian sheath was advanced over the guidewire. Rim catheter advanced into t he abdominal aorta. Abdominal aortogram was then done. Interpretation and supervision of the abdom inal aortogram revealed abdominal aorta grossly normal, no evidence of any significant disease. On the right side, right common iliac artery had a 60% stenosis originally, right internal iliac artery was normal, external iliac artery normal, common femoral artery normal, the origin of the profunda and origin of the right superficial femoral artery were normal. 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 Internal iliac artery was a small vessel. External iliac artery normal. Common femoral artery normal, prof unda normal. Superficial femoral artery had 60% to 70% stenosis throughout its course. The poplite al artery had 60% to 70% stenosis in its course. Anterior tibial artery was subtotal. Peroneal art riddhi was a small vessel which had an 80% lesion ostially. Posterior tibial artery had a 90% long les ion from its origin for about 8 cm. The patient also had an 80% lesion of the posterior tibial braulio ry at the ankle. The patient was given 5000 units of IV heparin. A long fixed sheath was advanced over the guidewire from the right to left. Atherectomy device was then passed. Atherectomy was done of the posterior tibial artery, popliteal artery and the superficial femoral artery. The posterior tibial artery at the ankle was angioplastied by 2 x 10 mm balloon, followed by angioplasty posterior tibial artery b elow the knee, followed by angioplasty of popliteal artery and superficial femoral artery at multipl e locations using a 6 x 10 mm balloon The patient was also given 10,000 units of nitroglycerin throu gh the sheath. The final angiogram was done which showed less than 10% stenosis in the superficial femoral artery a nd popliteal artery throughout its course. The posterior tibial artery was patent proximally about 1.[address] down to the ankle and the lesion at the ankle had diminished in severity and bloo d vessels of the foot opacified briskly. All the hardware was removed. The fixed short Serbian jara th was advanced. The patient tolerated the procedure well. Dictated By: CONSTANZA HOWELL/RAJANI Conf#: [id number] DID#: [id number]
--- NOTE | 2017-01-04 14:39 | CONS ---
DATE OF ADMISSION: 01/04/2017 DATE OF CONSULTATION: 01/04/2017 REASON FOR CONSULTATION: Coronary artery disease, status post coronary artery bypass grafting surge ry, status post lower extremity peripheral vascular procedure with abnormal electrocardiogram. Asse ss for acute coronary syndrome. REQUESTING PHYSICIAN: Dr. Constanza Alberto. HISTORY OF PRESENT ILLNESS: Me. Conte is a 66-year-old male with history of coronary artery diseas e, status post coronary artery bypass graft surgery 10/01/2016 x 6, receiving a WIGGINS to LAD, SVG to the diagonal, SVG to D2, SVG to OM and SVG to PDA, SVG to posterolateral branch, cardiomyopathy with decreased left ventricular ejection fraction, last only approximately 30 to 35% by left ventriculog deepak on 10/15/2016, hypertension, dyslipidemia, peripheral arterial disease with nonhealing lower ext remity ulcers and gangrenous changes lower extremity, who presented today and underwent left lower e xtremity atherectomy to posterior tibial artery, popliteal artery superficial femoral artery and an associated balloon angioplasty to the posterior tibial artery, popliteal artery and superficial femo ral artery. Postoperatively, the patient has been admitted. The patient underwent a 12-lead EKG th at reveals normal sinus rhythm, rate 95 with left axis deviation, borderline voltage criteria for le ft ventricular hypertrophy and lateral T-wave inversions. Given these findings, a cardiac consultat ion was requested to assess for any possible ongoing ischemia. At this time, patient denies chest p ain, shortness of breath. PAST MEDICAL HISTORY: As above in HPI. MEDICATIONS CURRENTLY IN HOSPITAL: 1. Clonidine p.r.n. 2. Zofran p.r.n. 3. [place] p.r.n. ALLERGIES: SULFA. SOCIAL HISTORY: No tobacco, ETOH or illicit drug use. FAMILY HISTORY: No history of sudden cardiac or early CAD. REVIEW OF SYSTEMS: As above in HPI. CONSTITUTIONAL: No fevers, chills. PULMONARY: No current shortness of breath. CARDIOVASCULAR: No current chest pain, history of coronary bypass graft surgery. GASTROINTESTINAL: No vomiting. GENITOURINARY: No hematuria. MUSCULOSKELETAL: Degenerative joint disease, peripheral vascular disease, gangrenous changes of the lower extremity. GASTROINTESTINAL: No vomiting. GENITOURINARY: No hematuria. ENDOCRINE: Diabetes mellitus. PHYSICAL EXAMINATION: VITAL SIGNS: Temperature of 97.8, blood pressure most recently 114/82, pulse 91, respirations 16, s aturating 98%. GENERAL: The patient is alert, awake, in no acute distress. NECK: JVP approximately 8 cm water. CHEST: Fair air movement throughout. HEART: Regular rate and rhythm. S1, S2, I/ systolic murmur, nondisplaced PMI. ABDOMEN: Positive bowel sounds, soft. EXTREMITIES: No edema. Gangrenous changes in the lower extremity nonhealing ulceration, difficult to palpate distal pulses bilaterally, posterior tibial. LABORATORY DATA: Most recent from today, white count 7.6, hemoglobin 15.6, platelet count 235. Sod ium 136, potassium 4.2, creatinine 0.8, BUN 26. IMAGING STUDIES: As above in HPI. No further imaging studies for my review at this time. ECG: As above in HPI. No further electrocardiograms for my review at this time. IMPRESSION: 1. Abnormal electrocardiogram postoperative state, assess for acute coronary syndrome with lateral T-wave inversions. 2. Coronary artery disease, status post coronary artery bypass graft surgery x6 September 2016. 3. Cardiomyopathy with decreased left ventricular ejection fraction last approximately 30 to 35% by echo pre-coronary artery bypass grafting. 4. Peripheral arterial disease, status post lower extremity atherectomy and balloon angioplasty for lower extremity gangrenous changes, nonhealing ulceration. 5. Hypertension. 6. Dyslipidemia. 7. Diabetes mellitus. RECOMMENDATIONS: 1. At this time, admit the patient for closer monitoring and would complete a rule out for myocardi al infarction to ensure the patient's ____chronic in nature and not due to any superimposed coronary syndrome provoked during the last procedure. 2. Would resume the patient's baseline aspirin and beta mavis. The patient will likely require P lavix status post angioplasty, but will plan to ____ a vascular surgeon for these orders. 3. Additionally, check the patient's lipid panel and initiate lipid-lowering medication as necessar y. 4. Continue routine postoperative care. 5. Follow the patient's blood sugars closely. 6. Check a 2D echo for reassess patient's ejection fraction since CABG and will check serial EKGs. Thank you for allowing me to take part in the care of this patient. I will continue to follow along very closely with you. Further recommendations will be made as the patient progresses through his inpatient hospital clinical course. Dictated By: LORI CONNELLY/RAJANI Conf#: [id number] DID#: [id number] CC: JERICHO NINA MD; CONSTANZA ALBERTO MD;*EndCC*
[2017-01-04] MEDS ORDERED: GLUCOSE GEL 15 GRAM TUBE PO PRN ×2 (17:30)
[2017-01-04] MEDS ORDERED: GLUCOSE GEL 15 GRAM TUBE BUCCAL PRN (17:30)
[2017-01-04] MEDS ORDERED: DEXTROSE 50% 50 ML SYRINGE IV PRN ×2 (17:30)
[2017-01-04] MEDS ORDERED: GLUCAGON 1 MG INJ IM PRN (17:30)
[2017-01-04] MEDS: INSULIN ASPART [NOVOLOG] 3 ML PEN SC SCH ×2 (17:55→21:52)
--- NOTE | 2017-01-04 18:20 | RADRPT ---
Vent Rate: 95 bpm RR Interval: 0 msec CA Interval: 140 msec QRS Duration: 114 msec QT Interval: 380 msec QTC Interval: 477 msec P-R-T [place]: 54 - -67 - 101 degrees Normal sinus rhythm Left axis deviation LAFB Moderate voltage criteria for LVH, may be normal variant nonspecific ST amp; T wave abnormality, Prolonged QT Abnormal ECG Electronically Signed By: Carroll Cox [id number]
--- NOTE | 2017-01-04 18:33 | QN ---
Documentation Comment [id number] JERICHO NINA MD January 04, 2017 18:33
--- NOTE | 2017-01-04 18:43 | RADRPT ---
Echocardiogram Report Patient Name: WILSON VALENZUELA Gender: Male Date: 1950 Study Date: 04-Jan-2017 Immunohematologist: Jacy Durant RDCS Location: PACU Ref. Physician: LORI NELSON Quality: Good Procedures: Transthoracic echocardiogram with complete 2D, M-Mode, and doppler examination. Indications: Abnormal EKG. Cardiomyopathy. 2D/M Mode Doppler Measurement Value Normal Ranges Measurement Value Normal Ranges LVIDd 2D 5.2 3.5 - 5.6 cm AV Peak [place] 1.3 m/sec LVIDs 2D 3.7 2.1 - 4.1 cm AV Peak PG 6.8 mmHg LVPWd 2D 1.1 0.6 - 1.1 cm AI Peak PG 61.6 mmHg IVSd 2D 1.2 0.6 - 1.1 cm AI Peak [place] 3.9 m/sec AoR Diam 2D 3.0 2.0 - 3.7 cm AI PHT 444.5 msec EDV 2D 131.7 cm3 LVOT Peak [place] 0.8 m/sec ESV 2D 49.3 cm3 LVOT Peak PG 2.7 mmHg LA Dimen 2D 3.7 2.3 - 4.0 cm TR Peak [place] 2.2 m/sec TR Peak PG 19.7 mmHg RVSP 23.0 mmHg Findings Left Ventricle: Normal left ventricular cavity size. Mild concentric left ventricular hypertrophy. Moderate global left ventricular systolic dysfunction. Ejection fraction is visually estimated at 30 %. Right Ventricle: Normal right ventricular size. Normal right ventricular systolic function. Left Atrium: The left atrium is normal in size. Right Atrium: The right atrium is normal in size. Mitral Valve: Mitral valve leaflets appear mildly thickened. Mild mitral annular calcification. Trace mitral regurgitation. Aortic Valve: Normal appearance of the aortic valve. Aortic cusps appear mildly calcified. Mild aortic valve regurgitation. Tricuspid Valve: Normal appearance of the tricuspid valve. Estimated peak PA systolic pressure 23 mmHg. There is trace tricuspid regurgitation. Pulmonic Valve: Normal pulmonic valve appearance. Pericardium: Normal pericardium with no significant pericardial effusion. Aorta: Normal aortic root. IVC: Normal size and normal respiratory collapse consistent with normal right atrial pressure. Conclusions 1.Normal left ventricular cavity size. Mild concentric left ventricular hypertrophy. Moderate to severe global left ventricular systolic dysfunction. Ejection fraction is visually estimated at 30 %. 2.Trace mitral regurgitation. 3.Normal appearance of the aortic valve. Aortic cusps appear mildly calcified. Mild aortic valve regurgitation. 4.Normal appearance of the tricuspid valve. Estimated peak PA systolic pressure 23 mmHg. There is trace tricuspid regurgitation. Electronically Signed By: Lori Nelson 04-Jan-2017 18:42:14 -0700 Patient Name: WILSON VALENZUELA Study Date: 04-Jan-2017 [id number]
[2017-01-04] MEDS ORDERED: morphine 2 MG INJ IV PRN (19:00)
[2017-01-04] MEDS ORDERED: DOCUSATE SODIUM 100 MG CAP PO PRN (19:00)
[2017-01-04] MEDS ORDERED: NACL 0.9% 3 ML SYG IV SCH (19:00)
[2017-01-04] MEDS ORDERED: ACETAMINOPHEN 325 MG TAB PO PRN (19:00)
[2017-01-04] MEDS ORDERED: MAGNESIUM HYDROXIDE 30ML CUP PO PRN (19:00)
[2017-01-04] MEDS ORDERED: ZOLPIDEM 5 MG TAB PO PRN (19:00)
--- NOTE | 2017-01-04 19:12 | CONS ---
DATE OF ADMISSION: 01/04/2017 DATE OF CONSULTATION: 01/04/2017 HISTORY OF PRESENT ILLNESS: Thank you, Dr. Bauman, for kindly asking us to do consultation. Previously, the patient had a history of CAD, history of coronary artery bypass graft, history of leukocytosis, electrolyte imbalance, anemia, atherosclerotic heart disease, dyslipidemia, status post anxiety, hepatic steatosis. Presented to this hospital, was admitted for lower extremity PVD and is being seen post-procedure. Patient has peripheral vascular disease status post atherectomy, left posterior tibial artery; atherectomy, left popliteal artery; atherectomy left superficial femoral artery ; balloon angioplasty, left posterior tibial artery; balloon angioplasty, left popliteal artery; angioplasty, left superficial femoral artery; abdominal aortogram; pulmonary angiogram. Patient now is being seen post-procedure. PAST MEDICAL HISTORY: As mentioned above. The patient has CAD, history of coronary artery bypass graft, history of anemia, atherosclerotic heart disease, dyslipidemia, status post anxiety, hepatic steatosis, PVD, status post angiogram and angioplasty of the left lower extremity _ femoral and tibial artery. ALLERGIES: SULFA. SOCIAL HISTORY: He denies. MEDICATION HISTORY: The patient is currently on: 1. Amlodipine. 2. Aspirin. 3. Cefdinir. 4. asa 5. Metformin. 6. Metoprolol. 7. Protonix. REVIEW OF SYSTEMS: HEENT: Unremarkable. RESPIRATORY: Unremarkable. CARDIOVASCULAR: Unremarkable. ABDOMEN: Unremarkable. EXTREMITIES: No pain. The patient has healing wounds. PHYSICAL EXAMINATION: GENERAL: The patient is awake and alert. VITAL SIGNS: Pulse 96, blood pressure 141/76. HEAD: Atraumatic, normocephalic. Pupils equal, reactive to light. NECK: Supple. No JVD. CABG scar noted. LUNGS: Clear. CARDIOVASCULAR: S1, S2 normal. ABDOMEN: Soft, nontender. Bowel sounds present. No palpable mass. EXTREMITIES: No cyanosis, clubbing, or edema. CENTRAL NERVOUS SYSTEM: The patient is awake, alert, no focal deficit. The patient has a scab on the left lower extremity noted, healing. Pulses are palpable in both lower extremity dorsalis pedis at this point. LABORATORY DATA: Hematocrit 44.3. Sodium 134, potassium 4.2, glucose 241. Chest x-ray shows the patient has elevated left diaphragm with lower lobe atelectasis, calcified aortic atherosclerotic disease. IMPRESSION: 1. The patient has peripheral vascular disease. 2. Status post lower extremity angiogram and angioplasty of the left lower extremity. 3. The patient has diabetes. 4. The patient has hyperglycemia. 5. The patient has history of coronary artery bypass graft. PLAN: Continue home medications. Gentle IV fluid. Pain medication. Check laboratory data. Orders were done. Dictated By: JERICHO NINA MD BS/NTS Conf#: [id number] DID#: [id number] GIOVANA
[2017-01-04] MEDS: METOPROLOL 50 MG TAB PO SCH (21:00)
[2017-01-04] MEDS: AMLODIPINE 5 MG TAB PO SCH (21:00)
[2017-01-04] MEDS ORDERED: METOPROLOL 50 MG TAB PO SCH (21:00)
[2017-01-04] MEDS: SOD CHLORIDE 0.9% 1,000 ML IV SCH (21:14)
[2017-01-04] MEDS: HYDROCODONE/APAP (5/325) TAB GTB PRN (23:38)
[2017-01-05] VITALS (10 sets, daily range): BP systolic 137–153; BP diastolic 86–93; PULSE 83–95; RESP 18–20
[2017-01-05] MEDS ORDERED: ACCU-CHEK XX SCH (02:00)
[2017-01-05] MEDS ORDERED: PANTOPRAZOLE (EC) 40 MG TAB PO SCH ×2 (06:00)
[2017-01-05] MEDS: SOD CHLORIDE 0.9% 1,000 ML IV SCH (08:02)
[2017-01-05] MEDS: AMLODIPINE 5 MG TAB PO SCH (08:18)
[2017-01-05] MEDS: INSULIN ASPART [NOVOLOG] 3 ML PEN SC SCH ×2 (08:18→11:45)
[2017-01-05] MEDS: METOPROLOL 50 MG TAB PO SCH (08:18)
--- NOTE | 2017-01-05 08:46 | PN ---
Date/Time of Note Date/Time of Note DATE: 01/05/17 TIME: 08:32 Assessment/Plan Lines/Catheters IV Catheter Type (from Nrsg): Peripheral IV Central line still needed: No Bautista in Place (from Nrsg): No Assessment/Plan Chief Complaint/Hosp Course SP angioplasty and atherectomy LLE will continue ASA Ambulation Problems: Subjective 24 Hr Interval Summary Constitutional: improved Pain Control: mild Exam/Review of Systems Vital Signs Vitals Vital Signs Date Time Temp Pulse Resp B/P Pulse Ox O2 Delivery O2 Flow Rate FiO2 01/05/17 08:01 85 01/05/17 07:11 98.2 18 153/86 100 01/04/17 15:51 Room Air Intake and Output 01/04/17 01/04/17 01/05/17 15:00 23:00 07:00 Intake Total 770 ml Balance 770 ml Exam ENMT: mucosa pink and moist, nl external ears & nose, nl lips & teeth, nl nasal mucosa & septum Neck: non-tender, supple Respiratory: clear to auscultation, normal air movement Cardiovascular: nl pulses, regular rate and rhythm Results Result Diagram: 01/04/17 0750 01/04/17 0750 CONSTANZA AWAD MD January 05, 2017 08:42
[2017-01-05] MEDS ORDERED: ASPIRIN 81 MG TAB PO SCH (09:00)
[2017-01-05] MEDS ORDERED: ASPIRIN (EC) 325 MG TAB PO SCH (09:00)
[2017-01-05] MEDS ORDERED: ENALAPRIL 20 MG TAB PO SCH (09:00)
[2017-01-05] MEDS: HYDROCODONE/APAP (5/325) TAB GTB PRN (12:12)
--- NOTE | 2017-01-05 13:59 | CONS ---
Date/Time of Note Date/Time of Note DATE: 01/05/17 TIME: 13:57 Assessment/Plan Assessment/Plan Chief Complaint/Hosp Course 1. The patient has peripheral vascular disease. 2. Status post lower extremity angiogram and angioplasty of the left lower extremity. 3. The patient has diabetes. 4. The patient has hyperglycemia. 5. The patient has history of coronary artery bypass graft. Problems: Additional Assessment/Plan 1. Optimization of the kidney function 2. wound care Consultation Date/Type/Reason Admit Date/Time January 04, 2017 at 14:03 Initial Consult Date 01/04/2017 Type of Consultation: nephrology Reason for Consultation Dr Carcamo 24 HR Interval Summary Constitutional: no complaints Exam/Review of Systems Vital Signs Vitals Vital Signs Date Time Temp Pulse Resp B/P Pulse Ox O2 Delivery O2 Flow Rate FiO2 01/05/17 12:04 86 01/05/17 11:33 98.1 18 137/89 99 01/04/17 15:51 Room Air Intake and Output 01/04/17 01/04/17 01/05/17 15:00 23:00 07:00 Intake Total 770 ml Balance 770 ml Exam Constitutional: alert, oriented Head: normocephalic Eyes: nl conjunctiva ENMT: nl external ears & nose Cardiovascular: regular rate and rhythm Gastrointestinal: soft Genitourinary - Male: nl penis Results Result Diagram: 01/04/17 0750 01/04/17 0750 Results 24 hrs Laboratory Tests Test 01/04/17 17:16 01/04/17 18:40 01/04/17 21:47 01/05/17 00:38 Bedside Glucose 241 H 248 H Troponin I 0.019 0.021 Test 01/05/17 04:59 01/05/17 07:46 01/05/17 11:41 Bedside Glucose 161 146 173 Medications Medications Current Medications Acetaminophen/ Hydrocodone Bitart ([place] (5/325)) 1 tab Q4H PRN GTB pain grreater than 5 Last administered on 01/05/17t 12:12; Admin Dose 1 TAB; Start at 13:00 Clonidine (Catapres) 0.1 mg Q4H PRN PO sbp greater than 160; Start 01/04/17 at 17:00 Metoprolol Tartrate (Lopressor) 50 mg BID PO ; Start 01/04/17 at 21:00 Diagnostic Test (Pha) (Accu-Chek) 1 ea 02 XX Last administered on 01/05/17 02: 09; Admin Dose 1 EA; Start 01/05/17 at 02:00 Miscellaneous Information 1 ea NOTE XX ; Start 01/04/17 at 17:30 Glucose (Glutose) 15 gm Q15M PRN PO DECREASED GLUCOSE; Start 01/04/17 at 17:30 Glucose (Glutose) 22.5 gm Q15M PRN PO DECREASED GLUCOSE; Start 01/04/17 at 17: 30 Dextrose (D50w Syringe) 25 ml Q15M PRN IV DECREASED GLUCOSE; Start 01/04/17 at 17:30 Dextrose (D50w Syringe) 50 ml Q15M PRN IV DECREASED GLUCOSE; Start 01/04/17 at 17:30 Glucagon (Glucagen) 1 mg Q15M PRN IM DECREASED GLUCOSE; Start 01/04/17 at 17:30 Glucose (Glutose) 15 gm Q15M PRN BUCCAL DECREASED GLUCOSE; Start 01/04/17 at 17 :30 Amlodipine Besylate (Norvasc) 5 mg BID PO ; Start 01/04/17 at 21:00 Aspirin (Ecotrin) 325 mg DAILY PO Last administered on 01/05/17 08:07; Admin Dose 325 MG; Start 01/05/17 at 09:00 Enalapril Maleate (Vasotec) 20 mg DAILY PO Last administered on 01/05/17 08:08 ; Admin Dose 20 MG; Start 01/05/17 at 09:00 Pantoprazole 40 mg 40 mg DAILY@06 PO Last administered on 01/05/17 05:46; Admin Dose 40 MG; Start 01/05/17 at 06:00 Sodium Chloride (NS) 1,000 ml @ 50 mls/hr Q20H IV Last administered on 08:02; Admin Dose 50 MLS/HR; Start 01/04/17 at 18:34 Ondansetron HCl (Zofran Inj) 4 mg Q6H PRN IV NAUSEA AND/OR VOMITING; Start 08/11 at 19:00 Acetaminophen (Tylenol Tab) 650 mg Q6H PRN PO PAIN LEVEL 1-3 OR FEVER; Start at 19:00 Morphine Sulfate (morphine) 2 mg Q4H PRN IV SEVERE PAIN LEVEL 7-10; Start 01/04 at 19:00 Docusate Sodium (Colace) 100 mg Q12H PRN PO CONSTIPATION; Start 01/04/17 at 19: 00 Magnesium Hydroxide (Milk Of Mag) 30 ml DAILY PRN PO CONSTIPATION; Start at 19:00 Zolpidem Tartrate (Ambien) 5 mg QHS PRN PO SLEEP; Start 01/04/17 at 19:00 ROXANNE PEARCE January 05, 2017 13:59
--- NOTE | 2017-01-05 14:23 | PDOCDIS ---
Discharge Instructions DIAGNOSIS Discharge Diagnosis: PVD CONDITION Patient Condition: Good HOME CARE INSTRUCTIONS: Diet Instructions: Low Fat /CholesterolSpecial Diet: carb count ACTIVITY: Activity Restrictions: Slowly Increase Activity Bathing Restrictions: Sponge Bath FOLLOW UP/APPOINTMENTS Appointments 1 week PCP SCHOOL/WORK RELEASE May return to School/Work with: With Restrictions (fall risk) ROXANNE PEARCE January 05, 2017 14:23
--- NOTE | 2017-01-05 14:32 | PDOCDIS ---
Discharge Instructions DIAGNOSIS Discharge Diagnosis: PVD CONDITION Patient Condition: Good HOME CARE INSTRUCTIONS: Diet Instructions: Low Fat /CholesterolSpecial Diet: carb count ACTIVITY: Activity Restrictions: Slowly Increase Activity Bathing Restrictions: Sponge Bath FOLLOW UP/APPOINTMENTS Appointments [address] Pantoja SCHOOL/WORK RELEASE May return to School/Work with: With Restrictions (fall risk) ROXANNE PEARCE January 05, 2017 14:32
[2017-01-05] MEDS ORDERED: HYDR-3498 PO (14:36)
--- NOTE | 2017-01-05 16:12 | CONS ---
Date/Time of Note Date/Time of Note DATE: 01/05/17 TIME: 16:04 Assessment/Plan Assessment/Plan Additional Assessment/Plan PAD with angioplasty of LLE CAD s/p CABG Ischemic cardiomyopathy Hypertension Diabetes Hyperlipidemia Continue Vasotec Continue Metoprolol Continue Norvasc Started on ASA and Plavix Started on Lipitor Consultation Date/Type/Reason Admit Date/Time January 04, 2017 at 14:03 Constitutional: no complaints Social History Smoking Status: Former smoker Exam/Review of Systems Vital Signs Vitals Vital Signs Date Time Temp Pulse Resp B/P Pulse Ox O2 Delivery O2 Flow Rate FiO2 01/05/17 16:00 83 01/05/17 15:37 97.6 18 149/93 97 01/04/17 15:51 Room Air Intake and Output 01/04/17 01/04/17 01/05/17 15:00 23:00 07:00 Intake Total 770 ml Balance 770 ml Exam Constitutional: alert Head: atraumatic, normocephalic Neck: non-tender, supple Respiratory: clear to auscultation Cardiovascular: regular rate and rhythm Gastrointestinal: nl liver, spleen, non-tender, soft Extremities: other (feeble pulses with non healing ulcer) Results Result Diagram: 01/04/17 0750 01/04/17 0750 Results 24 hrs Laboratory Tests Test 01/04/17 17:16 01/04/17 18:40 01/04/17 21:47 01/05/17 00:38 Bedside Glucose 241 H 248 H Troponin I 0.019 0.021 Test 01/05/17 04:59 01/05/17 07:46 01/05/17 11:41 Bedside Glucose 161 146 173 Medications Medications Current Medications Acetaminophen/ Hydrocodone Bitart ([place] (5/325)) 1 tab Q4H PRN GTB pain grreater than 5 Last administered on 01/05/17 12:12; Admin Dose 1 TAB; Start at 13:00 Clonidine (Catapres) 0.1 mg Q4H PRN PO sbp greater than 160; Start 01/04/17 at 17:00 Metoprolol Tartrate (Lopressor) 50 mg BID PO ; Start 01/04/17 at 21:00 Diagnostic Test (Pha) (Accu-Chek) 1 ea 02 XX Last administered on 5/13/17at 02: 09; Admin Dose 1 EA; Start 01/05/17 at 02:00 Miscellaneous Information 1 ea NOTE XX ; Start 01/04/17 at 17:30 Glucose (Glutose) 15 gm Q15M PRN PO DECREASED GLUCOSE; Start 01/04/17 at 17:30 Glucose (Glutose) 22.5 gm Q15M PRN PO DECREASED GLUCOSE; Start 01/04/17 at 17: 30 Dextrose (D50w Syringe) 25 ml Q15M PRN IV DECREASED GLUCOSE; Start 01/04/17 at 17:30 Dextrose (D50w Syringe) 50 ml Q15M PRN IV DECREASED GLUCOSE; Start 01/04/17 at 17:30 Glucagon (Glucagen) 1 mg Q15M PRN IM DECREASED GLUCOSE; Start 01/04/17 at 17:30 Glucose (Glutose) 15 gm Q15M PRN BUCCAL DECREASED GLUCOSE; Start 01/04/17 at 17 :30 Amlodipine Besylate (Norvasc) 5 mg BID PO ; Start 01/04/17 at 21:00 Aspirin (Ecotrin) 325 mg DAILY PO Last administered on 01/05/17 08:07; Admin Dose 325 MG; Start 01/05/17 at 09:00 Enalapril Maleate (Vasotec) 20 mg DAILY PO Last administered on 01/05/17 08:08 ; Admin Dose 20 MG; Start 01/05/17 at 09:00 Pantoprazole 40 mg 40 mg DAILY@06 PO Last administered on 01/05/17 05:46; Admin Dose 40 MG; Start 01/05/17 at 06:00 Sodium Chloride (NS) 1,000 ml @ 50 mls/hr Q20H IV Last administered on 08:02; Admin Dose 50 MLS/HR; Start 01/04/17 at 18:34 Ondansetron HCl (Zofran Inj) 4 mg Q6H PRN IV NAUSEA AND/OR VOMITING; Start 08/11 at 19:00 Acetaminophen (Tylenol Tab) 650 mg Q6H PRN PO PAIN LEVEL 1-3 OR FEVER; Start at 19:00 Morphine Sulfate (morphine) 2 mg Q4H PRN IV SEVERE PAIN LEVEL 7-10; Start 01/04 at 19:00 Docusate Sodium (Colace) 100 mg Q12H PRN PO CONSTIPATION; Start 01/04/17 at 19: 00 Magnesium Hydroxide (Milk Of Mag) 30 ml DAILY PRN PO CONSTIPATION; Start at 19:00 Zolpidem Tartrate (Ambien) 5 mg QHS PRN PO SLEEP; Start 01/04/17 at 19:00 JULIANNE LOPEZ M.D. January 05, 2017 16:12
[2017-01-05] MEDS ORDERED: CLOPIDOGREL 75 MG TAB PO SCH (16:30)
--- NOTE | 2017-01-05 20:24 | DS ---
Date/Time of Note Date/Time of Note DATE: 01/05/17 TIME: 20:17 Discharge Summary Admission/Discharge Info Admit Date/Time January 04, 2017 at 14:03 Discharge Date/Time January 05, 2017 at 16:40 Final Diagnosis 1. PVD 2. S/p endarterectomy LLE 3. LLE wound Patient Condition: Stable Consults Kevin Nelson, Dr Alberto Procedures none Hx of Present Illness Pt was in hospital for 2 days observation to evaluate left lower extremity wound and vascularization. Discharged home Hospital Course 1. The patient has peripheral vascular disease. 2. Status post lower extremity angiogram and angioplasty of the left lower extremity. 3. The patient has diabetes. 4. The patient has hyperglycemia. 5. The patient has history of coronary artery bypass graft. Home Meds Active Scripts Hydrocodone Bit-Acetaminophen (Hydrocodone Bit-APAP) 5-325MG Tablet, 1 TAB PO DAILY Y for pain grreater than 5 for 20 Days, TAB Prov:ROXANNE PEARCE 01/05/17 Pantoprazole* (Pantoprazole*) 40 Mg Tablet., 40 MG PO DAILY@06 for 30 Days Prov:EBENEZER GUARDADO MD 10/09/16 Metoprolol Tartrate* (Lopressor*) 50 Mg Tab, 50 MG PO BID for 90 Days, TAB Prov:EBENEZER GUARDADO MD 10/09/16 Amlodipine Besylate* (Amlodipine Besylate*) 5 Mg Tablet, 5 MG PO BID for 30 Days , TAB Prov:EBENEZER GUARDADO MD 10/09/16 Reported Medications Aspirin* (Aspirin* EC) 81 Mg Tablet., 81 MG PO DAILY, #30 01/04/17 Metformin Hcl* (Metformin Hcl*) 500 Mg Tablet, 500 MG PO AC BREAKFAST DINNER, # 30 TAB 09/27/16 Enalapril Maleate* (Enalapril Maleate*) 20 Mg Tablet, 20 MG PO DAILY, TAB 09/27/16 Discontinued Reported Medications Cefdinir (Cefdinir) 300 Mg Capsule, 300 MG PO BID, #60 CAP 01/04/17 Discontinued Scripts Aspirin (Aspir-Cely) 325 Mg Tablet., 325 MG PO DAILY for 60 Days Prov:EBENEZER GUARDADO MD 10/09/16 Follow-up Plan PCP and Dr Alberto in one week Pending Labs Laboratory Tests Test 01/04/17 21:47 01/05/17 00:38 01/05/17 04:59 01/05/17 07:46 Bedside Glucose 248mg/dL (70-220) 161mg/dL (70-220) 146mg/dL (70-220) Troponin I 0.021ng/ml (0.00-0.12) Test 01/05/17 11:41 Bedside Glucose 173mg/dL (70-220) ROXANNE PEARCE January 05, 2017 20:24
[2017-01-05] MEDS ORDERED: ATORVASTATIN 40 MG TAB PO SCH (21:00)
== END 2017-01-05 16:40 | disposition home or self-care (01) ==
LOC: SDS 06:58 → TEL 14:03
PROVIDERS: ADMIT Thoracic Surgery (Cardiothoracic Vascular Surgery); ATTEND Internal Medicine Nephrology
DX: I70.262 Atherosclerosis of native arteries of extremities with gangrene, left leg (principal); E11.65 Type 2 diabetes mellitus with hyperglycemia; I25.10 Atherosclerotic heart disease of native coronary artery without angina pectoris; Z95.1 Presence of aortocoronary bypass graft; Z88.2 Allergy status to sulfonamides; Z79.82 Long term (current) use of aspirin; Z79.84 Long term (current) use of oral hypoglycemic drugs
CPT/HCPCS: 37225; 37229; 71010; 80053; 82962; 84484; 85025; 85610; 85730; 93005; 93306; 96372; C1714; C1725; C1769; C1887; C1894; G0378; J1644; J1815; J2250; J3010; J7030; J7040; Q9967